=== PATIENT | female | born 1935 | race Caucasian/White ===

== ENCOUNTER 2016-12-22 12:09 | Outpatient (CLI) | payer MEDICARE, OTHER | END 2016-12-22 12:10 | disposition home or self-care (01) | DX: R92.1 Mammographic calcification found on diagnostic imaging of breast (principal) ==

== ENCOUNTER 2017-06-20 10:18 | Outpatient (CLI) | payer MEDICARE, OTHER ==
--- NOTE | 2017-06-20 12:46 | Mammography Report ---
DIGITAL DIAGNOSTIC BILATERAL MAMMOGRAM: 06/20/2017 CLINICAL INDICATION: Followup right calcifications. TECHNIQUE: Bilateral CC and MLO views, right true lateral and spot magnification views. COMPARISON: 12/22/2016, 06/24/2016, 12/23/2015, 06/12/2015, 05/29/2015, 06/18/2014, 05/07/2013, 03/26, 12/07/2010, 12/07/2009. FINDINGS: The breasts again demonstrate scattered fibroglandular densities bilaterally. Coarse, typ ically benign calcifications are again noted. No developing pleomorphism is seen. No suspicious mas s or region of architectural distortion is identified. IMPRESSION: BENIGN FINDINGS. RECOMMENDATION: The patient can return to routine annual screening unless otherwise clinically indic ated. BI-RADS category 2, benign findings. STANDARD QUALIFYING STATEMENTS 1. This examination was reviewed with the aid of Computer-Aided Detection (CAD). 2. A negative or benign imaging report should not delay biopsy if clinically suspicious findings are present. Consider surgical consultation if warranted. More than 5% of cancers are not identified by i maging. 3. Dense breasts may obscure an underlying neoplasm. JOB #: [id number] EXT JOB #:[id number]
== END 2017-06-20 10:19 | disposition home or self-care (01) ==
LOC: DI 10:18
PROVIDERS: ATTEND Internal Medicine
DX: R92.1 Mammographic calcification found on diagnostic imaging of breast (principal)
CPT/HCPCS: 77066

== ENCOUNTER 2018-07-17 13:23 | Outpatient (CLI) | payer MEDICARE, OTHER ==
--- NOTE | 2018-07-18 11:25 | Mammography Report ---
Reason: BILAT DIAG. w PERFECTO RT BREAST PAIN Procedure Date: 07/17/2018 Accession Number: [id number] / [id number] Procedure: JAMARI - Diagnostic Bilat 3D Perfecto CPT Code: 14993 FULL RESULT: EXAM: Diagnostic Bilat 3D Perfecto DATE: 07/17/2018 2:32 PM CLINICAL HISTORY: Right breast pain inferiorly. TECHNIQUE: Bilateral CC and MLO views were obtained. COMPARISON: 06/20/2017, 12/22/2016, 06/24/2016, 12/23/2015, 06/13/2015, 06/12/2015, 05/29/2015, 06/18/2014 and 05/07/2013 FINDINGS: There are scattered fibroglandular densities. There is been no significant interval change. Innumerable bilateral calcifications are grossly stable as are several bilateral nodular densities. No new suspicious masses, clustered microcalcifications, or regions of architectural distortion are identified. IMPRESSION: Benign findings RECOMMENDATION: Routine annual screening unless otherwise clinically indicated. BIRADS CATEGORY 2: Benign findings STANDARD QUALIFYING STATEMENTS: 1. This examination was not reviewed with the aid of Computer-Aided Detection (CAD). 2. A negative or benign imaging report should not delay biopsy if clinically suspicious findings are present. Consider surgical consultation if warrented. More than 5% of cancers are not identified by imaging. 3. Dense breasts may obscure an underlying neoplasm. 4. This examination was reviewed with the aid of 3D breast imaging (tomosynthesis).
--- NOTE | 2018-07-18 11:37 | Mammography Report ---
Reason: RT BREAST PAIN Procedure Date: 07/17/2018 Accession Number: [id number] / [id number] Procedure: JAMARI - Diagnostic Bilat 3D Von CPT Code: 24299 FULL RESULT: EXAM: Diagnostic Bilat 3D Von DATE: 07/17/2018 2:32 PM CLINICAL HISTORY: Right breast pain inferiorly. TECHNIQUE: Bilateral CC and MLO views were obtained. COMPARISON: 06/20/2017, 12/22/2016, 06/24/2016, 12/23/2015, 06/13/2015, 06/12/2015, 05/29/2015, 06/18/2014 and 05/07/2013. FINDINGS: There are scattered fibroglandular densities. There has been no significant interval change. Innumerable bilateral calcifications are grossly stable as are several bilateral nodular densities. No new suspicious masses, clustered microcalcifications, or regions of architectural distortion are identified. IMPRESSION: Benign findings RECOMMENDATION: Routine annual screening unless otherwise clinically indicated. BIRADS CATEGORY 2: Benign findings STANDARD QUALIFYING STATEMENTS: 1. This examination was not reviewed with the aid of Computer-Aided Detection(CAD). 2. A negative or benign imaging report should not delay biopsy if clinicaly suspicious findings are present. Consider surgical consultation if warrented. More than 5% of cancers are not identified by imaging. 3. Dense breasts may obscure an underlying neoplasm. 4. This examination was reviewed with the aid of 3D breast imaging (tomosynthesis).
== END 2018-07-17 13:24 | disposition home or self-care (01) ==
LOC: DI 13:23
PROVIDERS: ATTEND Internal Medicine
DX: N64.4 Mastodynia (principal)
CPT/HCPCS: 77062; 77066

== ENCOUNTER 2020-02-15 19:46 | Emergency (ER) | payer MEDICARE, OTHER ==
[2020-02-15] MEDS ORDERED: MORPHINE 2 MG/ML CARPUJECT IVP STA (20:16)
[2020-02-15] MEDS ORDERED: ONDANSETRON 4 MG/2 ML VIAL IVP STA (20:16)
--- NOTE | 2020-02-15 20:18 | ED Physician Documentation ---
PD HPI ABD PAIN - Stated complaint Stated Complaint: VOMITING - Chief complaint Chief Complaint: Abd Pain - History obtained from History obtained from: Patient, Family - History of Present Illness Timing - onset: Last night (84-year-old woman with history of TIA on Plavix, type 2 diabetes on oral medications. Remote history of oophorectomy and appendectomy. She has had abdominal pain since last night with bloating and vomiting since early this morning. Potentially a fever although she vacillates on that. She never had anything like this before. 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 - Present Medications Home Medications: Ambulatory Orders Medication Instructions Recorded Confirmed Atorvastatin [Lovastatin] 20 mg PO HS 01/11/14 02/15/20 Clopidogrel [Plavix] 75 mg PO DAILY 01/11/14 02/15/20 Levothyroxine [Synthroid] 50 mcg PO QDAC 01/11/14 02/15/20 Metformin HCl 100 mg PO TID 01/11/14 02/15/20 Metoprolol Succinate [Toprol Xl] 100 mg PO BID 01/11/14 02/15/20 Potassium Chloride [Micro-K] 10 meq PO BIDWM 01/11/14 02/15/20 amLODIPine [Norvasc] 5 mg PO DAILY 01/11/14 02/15/20 hydroCHLOROthiazide [Hydrodiuril] 25 mg PO DAILY 01/11/14 02/15/20 lisinopriL [Zestril] 40 mg PO BID 01/11/14 02/15/20 Ascorbic Acid [Vitamin C] 500 mg PO BID 02/15/20 02/15/20 Aspirin 81 mg PO QDBREAKFAST 02/15/20 02/15/20 Famotidine 20 mg PO QDAC 02/15/20 02/15/20 Glipizide [Glipizide Xl] 2.5 mg PO QDAC 02/15/20 02/15/20 Multivit-Min/FA/Lycopen/Lutein 1 each PO QDAC 02/15/20 02/15/20 [Centrum Silver Men Tablet] - Allergies Allergies/Adverse Reactions: Allergies Allergy/AdvReac Type Severity Reaction Status Date / Time No Known Drug Allergies Allergy Verified 02/15/20 20:01 - Social History Does the pt smoke?: No Smoking Status: Never smoker Does the pt drink ETOH?: No Does the pt have substance abuse?: No - Immunizations Immunizations are current?: Yes - POLST Patient has POLST: No PD ED PE NORMAL - Vitals Vital signs reviewed: Yes - General General: Alert and oriented X 3, Other (She is tachycardic, slightly tachypneic as well. She appears uncomfortable.) - HEENT HEENT: PERRL, EOMI - Neck Neck: Supple, no meningeal sign, No bony TTP - Cardiac Cardiac: Other (Tachycardic and slightly irregular) - Respiratory Respiratory: No respiratory distress, Clear bilaterally - Abdomen Abdomen: Other (Soft but distended with absent bowel tones, mild diffuse tenderness. No surgical signs.) - Back Back: No CVA TTP, No spinal TTP - Derm Derm: Normal color, Warm and dry - Extremities Extremities: No edema, No calf tenderness / cord - Neuro Neuro: Alert and oriented X 3, Normal speech Results - Vitals Vitals: Vital Signs - 24 hr 02/15/20 02/15/20 02/15/20 19:55 21:53 22:45 Temperature 37.0 C Heart Rate 121 H 92 77 Respiratory 22 20 22 Rate Blood Pressure 131/65 H 125/67 100/53 L O2 Saturation 95 92 97 Oxygen O2 Source Nasal cannula - EKG (time done) 2020 Rate: Rate (enter#) (116) Rhythm: Atrial fibrillation Ischemia: Q waves (anterior). No: ST elevation c/w ischemia Computer interpretation: Agree with computer - Labs Labs: Laboratory Tests 02/15/20 02/15/20 02/15/20 20:20 20:20 20:20 WBC 15.9 H RBC 4.43 Hgb 14.2 Hct 41.0 MCV 92.6 MCH 32.1 H MCHC 34.6 RDW 13.6 Plt Count 145 MPV 12.1 H Neut # (Auto) 14.7 H Lymph # (Auto) 0.3 L Barron # (Auto) 0.4 Eos # (Auto) 0.3 Baso # (Auto) 0.1 Absolute Nucleated RBC 0.00 Nucleated RBC % 0.0 PT 14.4 H INR 1.3 H Sodium 132 L Potassium 2.4 L* Chloride 95 L Carbon Dioxide 19 L Anion Gap 18.0 H BUN 20 Creatinine 1.1 H Estimated GFR (MDRD) 47 L Glucose 263 H Calcium 9.4 Magnesium Total Bilirubin 5.5 H AST 655 H ALT 532 H Alkaline Phosphatase 108 Total Protein 7.4 Albumin 3.8 Globulin 3.6 Albumin/Globulin Ratio 1.1 Lipase 27 02/15/20 20:20 WBC RBC Hgb Hct MCV MCH MCHC RDW Plt Count MPV Neut # (Auto) Lymph # (Auto) Barron # (Auto) Eos # (Auto) Baso # (Auto) Absolute Nucleated RBC Nucleated RBC % PT INR Sodium Potassium Chloride Carbon Dioxide Anion Gap BUN Creatinine Estimated GFR (MDRD) Glucose Calcium Magnesium 1.2 L Total Bilirubin AST ALT Alkaline Phosphatase Total Protein Albumin Globulin Albumin/Globulin Ratio Lipase - Rads (name of study) CT A/P Radiology: EMP read contemporaneously (1. Pericholecystic fat stranding and fluid, suspicious for cholecystitis although no calcified stones are seen. Recommend further evaluation with right upper quadrant ultrasound. 2. Mildly dilated CBD, not unusual at this patient's age. Consider correlation with laboratory values to assess for evidence of obstruction, and further evaluation with MRCP if indicated. 3. Trace bilateral pleural effusions. ) PD MEDICAL DECISION MAKING - ED course ED course: 84-year-old woman presents with abdominal pain and vomiting. I thought she would have a small bowel obstruction but CT showing more of a cholecystitis type picture with potential obstruction. Modestly elevated liver enzymes and bilirubin. No elevation in alkaline phosphatase though which is a little odd. Case discussed by phone with the on-call surgeon, Dr. Sumaya Olivas who will follow along if the patient stays here in did not necessarily see the need for urgent referral to a facility capable of ERCP or MRCP. Case discussed with the family and they would prefer to stay here. Subsequently talked with the hospitalist here, Dr. Kimball who felt very uncomfortable admitting the patient and, subsequently I spoke with the family and they were willing to go to [place]. I talked to the GI on-call in [place], Dr. Craig at approximately 10:45 PMHe will see in consult. Defer to the hospitalist for admission. Accepted by Dr. Jose Ramon Mulligan, hospitalist in [place] at 10:58 PM. Cobras were completed. She is stable for transport. Departure - Departure Disposition: 02 Transfer Acute Care Hosp Clinical Impression: Cholecystitis, Atrial fibrillation, Hypokalemia, Hypomagnesemia Vomiting Qualifiers: Vomiting type: bilious vomiting Nausea presence: with nausea Qualified Code(s): R11.14 - Bilious vomiting Condition: Serious
[2020-02-15 20:27] LABS: BASOPHILS # (AUTO) 0.1 10^3/uL (0.0-0.1); BASOPHILS % (AUTO) 0.3 %; EOSINOPHILS # (AUTO) 0.3 10^3/uL (0.0-0.7); EOSINOPHILS % (AUTO) 1.6 %; HGB - HEMOGLOBIN 14.2 g/dL (12.0-16.0); LYMPHOCYTES # (AUTO) 0.3 10^3/uL (1.5-3.5); LYMPHOCYTES % (AUTO) 2.1 %; MEAN CORPUSCULAR HEMOGLOBIN 32.1 pg (27.0-31.0); MEAN CORPUSCULAR HGB CONC 34.6 g/dL (32.0-36.0); MEAN CORPUSCULAR VOLUME 92.6 fL (81.0-99.0); MEAN PLATELET VOLUME 12.1 fL (7.9-10.8); MONOCYTES # (AUTO) 0.4 10^3/uL (0.0-1.0); MONOCYTES % (AUTO) 2.7 %; NEUTROPHILS # (AUTO) 14.7 10^3/uL (1.5-6.6); NEUTROPHILS % (AUTO) 92.6 %; PLT - PLATELET COUNT 145 10^3/uL (130-450); RED BLOOD COUNT 4.43 10^6/uL (4.20-5.40); RED CELL DISTRIBUTION WIDTH 13.6 % (12.0-15.0); WHITE BLOOD COUNT 15.9 x10^3/uL (4.8-10.8)
[2020-02-15 20:29] LABS: INR 1.3 (0.8-1.2); PT - PROTHROMBIN TIME 14.4 secs (9.9-12.6)
[2020-02-15 20:44] LABS: ALBUMIN 3.8 g/dL (3.2-5.5); ALBUMIN/GLOBULIN RATIO 1.1 (1.0-2.2); BILIRUBIN,TOTAL 5.5 mg/dL (0.2-1.0); CALCIUM 9.4 mg/dL (8.5-10.3); CREATININE 1.1 mg/dL (0.4-1.0); TOTAL PROTEIN 7.4 g/dL (6.7-8.2)
[2020-02-15] MEDS ORDERED: IOVERSOL 320 100 ML VIAL IVP ONE ×2 (20:48→21:14)
[2020-02-15] MEDS ORDERED: POTASSIUM CHLOR 10 MEQ/100 ML 10 MEQ/100 ML BAG IV ONE ×2 (20:53→20:54)
[2020-02-15] MEDS ORDERED: HYDROmorphone 1 MG/ML CARPUJECT IVP STA (20:54)
[2020-02-15] MEDS ORDERED: MAGNESIUM SULFATE 2 GRAM 2 GM/50 ML BAG IV ONE (21:14)
[2020-02-15] MEDS ORDERED: SODIUM CHLORIDE 0.9% 1,000 ML IV STA ×2 (21:36→23:54)
--- NOTE | 2020-02-15 21:43 | CT Report ---
Reason: abd pain, suspect sbo, IV only Procedure Date: 02/15/2020 Accession Number: [id number] / [id number] Procedure: CT - Abdomen/Pelvis W CPT Code: Final Report FULL RESULT: EXAM: CT ABDOMEN AND PELVIS EXAM DATE: 02/15/2020 08:59 PM. CLINICAL HISTORY: Lower abdominal pain and nausea/vomiting. Suspect small bowel obstruction. COMPARISONS: ABDOMEN/PELVIS W/O 02/08/2014 9:07 AM. TECHNIQUE: Routine helical CT imaging was performed through the abdomen and pelvis. IV contrast: 80 ML OPTI 320 AT 2 ML/SEC WITH 70 SEC DELAY. . Enteric contrast: No. Reconstructions: Coronal and sagittal. In accordance with CT protocol optimization, one or more of the following dose reduction techniques were utilized for this exam: automated exposure control, adjustment of mA and/or KV based on patient size, or use of iterative reconstructive technique. FINDINGS: Lung Bases: Trace bilateral pleural effusions. Liver: Enlarged with the right hepatic lobe measuring proximally 21 cm in length. No focal hepatic lesion. Gallbladder/Bile Ducts: The gallbladder is distended with no visualized stones. Pericholecystic fat stranding and small volume fluid. Mildly dilated CBD measuring 8 mm (upper limits of normal 6 mm, previously 6 mm on 02/08/2014). Spleen: Normal. Pancreas: Normal. Adrenal Glands: Normal. Kidneys and Ureters: An 11 mm circumscribed hypoattenuating focus in the lateral left interpolar cortex likely represents a cyst (3/32); no imaging follow-up is recommended per consensus recommendations based on imaging criteria. No stones, hydronephrosis, or hydroureter. Peritoneal Cavity/Bowel: Small volume free fluid adjacent to the gallbladder and inferior tip of the right hepatic lobe, in the right paracolic gutter, and in the pelvis. No evidence for bowel obstruction or acute inflammatory process. The appendix is not seen. No pneumoperitoneum or adenopathy. Pelvic Organs: Multiple uterine myomata, the largest approximately 2.7 x 2.1 x 2.6 cm at the right fundus (3/67, 5/38). The bladder and ovaries are within normal limits. Vasculature: Moderate atherosclerotic calcifications within the aorta and iliac arteries. Bones: Multilevel degenerative disk disease, most pronounced in moderate to severe at L4-L5. No acute bony abnormality. Other: None. IMPRESSION: 1. Pericholecystic fat stranding and fluid, suspicious for cholecystitis although no calcified stones are seen. Recommend further evaluation with right upper quadrant ultrasound. 2. Mildly dilated CBD, not unusual at this patient's age. Consider correlation with laboratory values to assess for evidence of obstruction, and further evaluation with MRCP if indicated. 3. Trace bilateral pleural effusions. RADIA
[2020-02-15] MEDS ORDERED: PIPERACILLIN/TAZOBACTAM 3.375 GM in SODIUM CHLORIDE 0.9% MINIBAG 100 ML IV STA (22:00)
[2020-02-15] MEDS ORDERED: metroNIDAZOLE 500 MG/100 ML 500 MG/100 ML BAG IV ONE (22:00)
[2020-02-16 01:08] VITALS: BP 97/64
== END 2020-02-16 01:08 | disposition short-term general hospital (02) ==
LOC: ED 19:46
DX: K81.9 Cholecystitis, unspecified (principal); R11.14 Bilious vomiting; I48.91 Unspecified atrial fibrillation; E87.6 Hypokalemia; E83.42 Hypomagnesemia; E11.9 Type 2 diabetes mellitus without complications; Z79.84 Long term (current) use of oral hypoglycemic drugs; I10 Essential (primary) hypertension; Z86.73 Personal history of transient ischemic attack (TIA), and cerebral infarction without residual deficits; Z79.02 Long term (current) use of antithrombotics/antiplatelets; Z79.82 Long term (current) use of aspirin; Z90.49 Acquired absence of other specified parts of digestive tract
CPT/HCPCS: 36415; 74177; 80053; 83690; 83735; 85025; 85610; 93005; 96365; 96366; 96368; 96375; 99285; J1170; Q9967

== ENCOUNTER 2020-02-16 01:19 | Outpatient (CLI) | payer MEDICARE, OTHER | END 2020-02-16 01:20 | disposition short-term general hospital (02) | LOC: EMS 01:19 | PROVIDERS: ATTEND Surgery | DX: K81.9 Cholecystitis, unspecified (principal) | CPT/HCPCS: A0425; A0426 ==

== ENCOUNTER 2020-03-08 11:26 | Outpatient (CLI) | payer MEDICARE, OTHER | END 2020-03-08 11:27 | disposition critical access hospital (66) | LOC: EMS 11:26 | PROVIDERS: ATTEND Surgery | DX: R53.1 Weakness (principal); R29.810 Facial weakness; R47.9 Unspecified speech disturbances | CPT/HCPCS: A0425; A0429 ==

== ENCOUNTER 2020-03-08 11:34 | Inpatient (IN) | payer MEDICARE, OTHER ==
[2020-03-08] MEDS ORDERED: SODIUM CHLORIDE 0.9% 1,000 ML IV STA (11:37)
--- NOTE | 2020-03-08 12:04 | CT Report ---
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 For radiation dose reduction, the following was used: automated exposure control, adjustment of mA and/or kV according to patient size. COMPARISON: FINDINGS: Image quality: Excellent. CSF spaces: Basal cisterns are patent. No extra-axial fluid collections. Ventricles are normal in size and shape. Brain: No midline shift. No intracranial masses or hemorrhage. [place]-white matter interface is norm al. Skull and face: Calvarium and visualized facial bones are intact, without suspicious lesions. Sinuses: Visualized sinuses and mastoids are clear. IMPRESSION: No acute process. This study fulfills neurological imaging criteria for inclusion or exclusion of acute stroke therapie s based on available published neurological imaging guidelines. Reviewed by: Cleopatra Johansen MD on 03/08/2020 12:03 PM PDT Approved by: Cleopatra Johansen MD on 03/08/2020 12:03 PM PDT Station ID: [id number]
[2020-03-08] MEDS ORDERED: IOVERSOL 320 100 ML VIAL IVP ONE (12:08)
[2020-03-08 12:12] LABS: BASOPHILS % (AUTO) 0.6 %; EOSINOPHILS % (AUTO) 0.8 %; HGB - HEMOGLOBIN 8.5 g/dL (12.0-16.0); LYMPHOCYTES # (AUTO) 0.8 10^3/uL (1.5-3.5); LYMPHOCYTES % (AUTO) 15.8 %; MEAN CORPUSCULAR HEMOGLOBIN 29.7 pg (27.0-31.0); MEAN CORPUSCULAR HGB CONC 30.7 g/dL (32.0-36.0); MEAN CORPUSCULAR VOLUME 96.9 fL (81.0-99.0); MEAN PLATELET VOLUME 10.3 fL (7.9-10.8); MONOCYTES # (AUTO) 0.7 10^3/uL (0.0-1.0); NEUTROPHILS # (AUTO) 3.6 10^3/uL (1.5-6.6); NEUTROPHILS % (AUTO) 68.2 %; PLT - PLATELET COUNT 271 10^3/uL (130-450); RED BLOOD COUNT 2.86 10^6/uL (4.20-5.40); RED CELL DISTRIBUTION WIDTH 17.6 % (12.0-15.0); WHITE BLOOD COUNT 5.3 x10^3/uL (4.8-10.8)
[2020-03-08 12:18] LABS: INR 1.3 (0.8-1.2); PT - PROTHROMBIN TIME 14.4 secs (9.9-12.6)
[2020-03-08 12:26] LABS: ALBUMIN 2.9 g/dL (3.2-5.5); ALBUMIN/GLOBULIN RATIO 1.1 (1.0-2.2); BILIRUBIN,TOTAL 1.4 mg/dL (0.2-1.0); CALCIUM 9.5 mg/dL (8.5-10.3); CREATININE 0.8 mg/dL (0.4-1.0); MAGNESIUM 1.5 mg/dL (1.7-2.8); PARTIAL THROMBOPLASTIN TIME 33.1 secs (24.9-33.3); TOTAL PROTEIN 5.5 g/dL (6.7-8.2)
--- NOTE | 2020-03-08 12:28 | CT Report ---
PROCEDURE: ANGIO HEAD W/WO INDICATIONS: right weakness, abrupt onset CONTRAST: IV CONTRAST: Optiray 320 ml: 100 PO CONTRAST: *NO PO CONTRAST TECHNIQUE: Precontrast 4.5 mm thick angled axial sections acquired from the foramen magnum to the vertex. Afte r the administration of intravenous contrast, 1 mm thick sections acquired through the [place] is. Postcontrast 4.5 mm thick sections then re-acquired from the foramen magnum to the vertex. 3-di mensional nmjefub-brcjlbphu-ymfeaudbop (MIP) and/or volume rendering reformats were acquired of the c entral intracranial vasculature. For radiation dose reduction, the following was used: automated ex posure control, adjustment of mA and/or kV according to patient size. COMPARISON: CT angiography of the neck dated FINDINGS: Image quality: Excellent. Anterior circulation: Right internal carotid artery is normal in appearance. Left internal carotid ar yanira is occluded. The flow within the paired anterior cerebral arteries is normal and symmetric. Righ t middle cerebral artery is within normal limits. Left middle cerebral artery is occluded just distal to its origin. The anterior communicating artery is seen. No aneurysms are seen. Posterior circulation: Visualized portions of the vertebral arteries demonstrate normal caliber, and join to form a normal appearing basilar artery. Flow within the posterior cerebral arteries is norm al and symmetric. No aneurysms are seen. CSF spaces: Ventricles are normal in size and shape. Basal cisterns are patent. No extra-axial flu id collections. Brain: No midline shift. No intracranial bleeds or masses. Valencia-white matter interface appears int act. Skull and face: Calvarium and facial bones appear intact, without suspicious lesions. Sinuses: Visualized sinuses and mastoids are clear. IMPRESSION: 1. 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 3. Findings discussed with Dr. Jose Ramon Garcia on 03.08.20 at 1226 hours. Reviewed by: Cleopatra Johansen MD on 03/08/2020 12:26 PM PDT Approved by: Cleopatra Johansen MD on 03/08/2020 12:26 PM PDT Station ID: [id number]
--- NOTE | 2020-03-08 12:32 | CT Report ---
PROCEDURE: ANGIO NECK W INDICATIONS: right weakness, abrupt onset CONTRAST: IV CONTRAST: Optiray 320 ml: 100 PO CONTRAST: *NO PO CONTRAST TECHNIQUE: After the administration of intravenous contrast, 1.5 mm axial sections acquired from the aortic arch to the [place] of [place]. Coronal 3-D maximum intensity projection (MIP) and/or volume rendering ref ormats were then performed. For radiation dose reduction, the following was used: automated exposur e control, adjustment of mA and/or kV according to patient size. COMPARISON: None. FINDINGS: Image quality: Excellent. Carotid system: The great vessels demonstrate a conventional anatomy as they arise from the aortic [facility]. The origins of the common carotid arteries appear patent. The common carotid arteries demonstr ate normal calibers and courses. Right internal carotid artery is patent. Left internal carotid arter y is patent within its midportion and proximally, but occludes distally. Posterior circulation: The origins of the vertebral arteries appear patent. The more superior porti ons of the vertebral arteries demonstrate normal course and caliber. They join to form a normal appe aring basilar artery. Soft tissues: Visualized neck soft tissues demonstrate no suspicious abnormalities. The thyroid gla nd is normal in size. Bones: No suspicious bony lesions. Visualized cervical spine appears normally aligned. IMPRESSION: 1. Occluded distal left internal carotid artery. 2. Findings were discussed with Dr. Jose Ramon Garcia's nurse, [place], on 03.08.20 at 1228 hours. The estimate of stenosis included in the report of the imaging study was calculated using the NASCET method Reviewed by: Cleopatra Johansen MD on 03/08/2020 12:31 PM PDT Approved by: Cleopatra Johansen MD on 03/08/2020 12:31 PM PDT Station ID: [id number]
[2020-03-08] MEDS ORDERED: WATER FOR INJECTION STERILE IV STA ×2 (12:43→12:51)
[2020-03-08] MEDS ORDERED: ALTEPLASE IV STA ×2 (12:43→12:51)
[2020-03-08] MEDS ORDERED: ALTEPLASE 100 MG VIAL IV STA (12:50)
--- NOTE | 2020-03-08 13:40 | ED Physician Documentation ---
PD HPI FOCAL NEURO - Stated complaint Stated Complaint: CODE STROKE - Chief complaint Chief Complaint: Neuro - History obtained from History obtained from: Patient, Family - History of Present Illness Timing - onset: How many minutes ago (45) Timing - duration: Minutes (45) Timing - details: Abrupt onset (The patient's and daughter state that ericka johnson was sitting at the table eating with them and had an abrupt onset of difficulty speaking mumbling speech inattention and right-sided weakness of the face arm and leg. She is not have any fainting. EMS was called and she was promptly brought here. She was able to answer minimally with slight yes and no and denied any pains.), Still present Severity of deficit: Severe Weakness: Face, Arm, Leg, Right Numbness: Face, Arm, Leg, Right Associated symptoms: No: Headache, Nausea / vomiting, Fall, Head injury, Chest pain Contributing factors: positive: Atrial fibrillation (recent in the past month, and is on Plavix.). negative: Anticoagulated Baseline status: positive: A&OX3, ambulatory, indep, Walker Similar symptoms before: Has not had sx before Recently seen: Admitted, Surgery (2 1/2 - 3 weeks ago for gallbladder surgery in [place] with repeat scope for fluid accumulation. Discharged just a week ago. Dx with atrial fib during that admission. On plavix.) Review of Systems Unable to obtain: AMS (significant aphasia), Other (info from family (daughter in ER and by phone)) Constitutional: denies: Fever Cardiac: denies: Chest pain / pressure Respiratory: denies: Dyspnea, Cough GI: denies: Vomiting, Diarrhea Skin: denies: Abrasion (s), Laceration (s) Neurologic: reports: Generalized weakness. denies: Headache, Head injury Endocrine: reports: Easy bruising / bleeding. 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 - Present Medications Home Medications: Ambulatory Orders Medication Instructions Recorded Confirmed Atorvastatin [Lovastatin] 20 mg PO HS 01/11/14 03/08/20 Clopidogrel [Plavix] 75 mg PO DAILY 01/11/14 03/08/20 Levothyroxine [Synthroid] 50 mcg PO QDAC 01/11/14 03/08/20 Metformin HCl 500 mg PO TID 01/11/14 03/08/20 Potassium Chloride [Micro-K] 10 meq PO BIDWM 01/11/14 03/08/20 amLODIPine [Norvasc] 5 mg PO DAILY 01/11/14 03/08/20 hydroCHLOROthiazide [Hydrodiuril] 25 mg PO DAILY 01/11/14 03/08/20 lisinopriL [Zestril] 40 mg PO BID 01/11/14 03/08/20 Ascorbic Acid [Vitamin C] 500 mg PO BID 02/15/20 03/08/20 Aspirin 81 mg PO QDBREAKFAST 02/15/20 03/08/20 Famotidine 20 mg PO QDAC 02/15/20 03/08/20 Glipizide [Glipizide Xl] 2.5 mg PO QDAC 02/15/20 03/08/20 Multivit-Min/FA/Lycopen/Lutein 1 each PO QDAC 02/15/20 03/08/20 [Centrum Silver Men Tablet] Metoprolol Tartrate 100 mg PO BID 03/08/20 03/08/20 - Allergies Allergies/Adverse Reactions: Allergies Allergy/AdvReac Type Severity Reaction Status Date / Time No Known Drug Allergies Allergy Verified 03/08/20 12:10 - Social History Does the pt smoke?: No Smoking Status: Never smoker Does the pt drink ETOH?: No Does the pt have substance abuse?: No - Immunizations Immunizations are current?: Yes - POLST Patient has POLST: No PD ED PE NORMAL - Vitals Vital signs reviewed: Yes - General General: No acute distress, Well developed/nourished - HEENT HEENT: Atraumatic, Pharynx benign, Other (positive gag reflex) - Neck Neck: Supple, no meningeal sign - Cardiac Cardiac: RRR, No murmur - Respiratory Respiratory: No respiratory distress, Clear bilaterally - Abdomen Abdomen: Soft, Non tender, Other (healing scopic scars on abd without signs of infection) - Back Back: No CVA TTP - Derm Derm: Normal color, Warm and dry - Extremities Extremities: No tenderness to palpate, Normal ROM s pain, No edema, No calf tenderness / cord NIHSS - Level of Consciousness Level of consciousness: (1) Not alert, but arousable by minor stimulation to obey, or answer LOC Questions: (2) Answers neither correct LOC Commands: (1) Performs one correctly - Gaze Best Gaze: (1) Partial gaze palsy (to the left) - Visual Visual: (0) No loss - Facial Palsy Facial Palsy: (2) Partial paralysis - Motor Arms (both separate) Motor Arm (right): (3) No effort against gravity Motor Arm (left): (0) No drift - Motor Legs (both separate) Motor Leg (right): (2) Some effort against gravity Motor Leg (left): (0) No drift - Limb Ataxia Limb Ataxia: (0) Absent - Sensory Sensory: (1) Cyur-wa-mddsjtcl loss - Best Language Best Language: (2) Severe aphasia - Dysarthria Dysarthria: (1) Squa-lp-[id number] dysarthria - Extinction and Inattention (formally neg Extinction and inattention: (1) Visual,tactile,auditory,spatial, or personal inattention - Total Score/Results Total Score/Result: 17 Results - Vitals Vitals: Vital Signs - 24 hr 03/08/20 03/08/20 03/08/20 12:01 12:11 12:50 Temperature 36.5 C Heart Rate 82 72 78 Respiratory 20 19 22 Rate Blood Pressure 154/72 H 154/72 H 159/78 H O2 Saturation 95 95 96 03/08/20 03/08/20 03/08/20 13:00 13:09 13:56 Temperature Heart Rate 72 79 80 Respiratory 20 22 22 Rate Blood Pressure 155/84 H 146/79 H O2 Saturation 96 95 95 Oxygen O2 Source Room air - EKG (time done) 12:03 Rate: Rate (enter#) (78) Rhythm: Atrial fibrillation [place]: Normal QRS: Low voltage Ischemia: Normal ST segments. No: ST elevation c/w ischemia, ST depression Compare to prior EKG: Old EKG unavailable - Labs Labs: Laboratory Tests 03/08/20 03/08/20 03/08/20 12:00 12:00 12:00 WBC 5.3 RBC 2.86 L Hgb 8.5 L Hct 27.7 L MCV 96.9 MCH 29.7 MCHC 30.7 L RDW 17.6 H Plt Count 271 MPV 10.3 Neut # (Auto) 3.6 Lymph # (Auto) 0.8 L Cook # (Auto) 0.7 Eos # (Auto) 0.0 Baso # (Auto) 0.0 Absolute Nucleated RBC 0.00 Nucleated RBC % 0.0 ESR PT 14.4 H INR 1.3 H APTT 33.1 Sodium 133 L Potassium 3.8 Chloride 99 L Carbon Dioxide 23 Anion Gap 11.0 BUN 10 Creatinine 0.8 Estimated GFR (MDRD) 68 L Glucose 190 H Calcium 9.5 Magnesium 1.5 L Total Bilirubin 1.4 H AST 15 ALT 16 Alkaline Phosphatase 131 H Troponin I High Sens Total Protein 5.5 L Albumin 2.9 L Globulin 2.6 Albumin/Globulin Ratio 1.1 Lipase 37 03/08/20 03/08/20 12:00 12:00 WBC RBC Hgb Hct MCV MCH MCHC RDW Plt Count MPV Neut # (Auto) Lymph # (Auto) Cook # (Auto) Eos # (Auto) Baso # (Auto) Absolute Nucleated RBC Nucleated RBC % ESR 29 PT INR APTT Sodium Potassium Chloride Carbon Dioxide Anion Gap BUN Creatinine Estimated GFR (MDRD) Glucose Calcium Magnesium Total Bilirubin AST ALT Alkaline Phosphatase Troponin I High Sens 7.1 Total Protein Albumin Globulin Albumin/Globulin Ratio Lipase - Rads (name of study) head CT Radiology: Prelim report reviewed (no ICH nor acute process), See rad report head/neck angio Radiology: Prelim report reviewed, Discussed with rads (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 We were thinking of TPA but then subsequent information from the daughter about the recent surgery and her baseline function change the treatment algorithm. The family was updated on the neurologists recommendations of no TPA and not a candidate for endovascular treatment.), d/w retirement consultant (Discussed with the stroke neurology Dr. Harris at [facility] who states initially was wanted to give TPA but then as we get the information of the recent gallbladder surgery, said that would be contraindicated. He talked with the interventional list and also talked with the patient's daughter to establish comorbidities and baseline function and the neurologist that the patient is not a endovascular candidate.) Departure - Departure Disposition: ED Place in Observation Clinical Impression: Acute right-sided weakness, Aphasia Cerebrovascular accident (CVA) Qualifiers: CVA mechanism: occlusion Precerebral and cerebral artery: carotid artery Laterality of affected vessel: left Qualified Code(s): I63.232 - Cerebral infarction due to unspecified occlusion or stenosis of left carotid arteries Condition: Stable Record reviewed to determine appropriate education?: Yes Discharge Date/Time: 03/08/20 14:44
[2020-03-08] MEDS: ASPIRIN CHEW 81 MG TABLET PO STA ×2 (13:51→13:55)
[2020-03-08] MEDS ORDERED: ONDANSETRON 4 MG/2 ML VIAL IVP PRN (14:13)
[2020-03-08] MEDS ORDERED: ASPIRIN 300 MG SUPP PR STA (14:18)
[2020-03-08] MEDS ORDERED: MAGNESIUM SULFATE 1 GM/2 ML VIAL IVP STA (14:26)
[2020-03-08] MEDS ORDERED: ACETAMINOPHEN 1,000 MG/100 ML 100 ML IV PRN (14:27)
[2020-03-08] MEDS: D5NS W/20 MEQ KCL 1,000 ML IV SCH (15:27)
--- NOTE | 2020-03-08 15:31 | XRAY Report ---
PROCEDURE: Chest 1 View X-Ray INDICATIONS: CVA, Afib, HTN TECHNIQUE: One view of the chest was acquired. COMPARISON: 02/08/2014. Correlation is also made with overlapping portions of neck angiogram 0 FINDINGS: Surgical changes and devices: None. Lungs and pleura: Small bilateral pleural effusions are seen. Interstitial prominence is seen through out. No pneumothorax is seen. Mediastinum: Mediastinal contours appear normal. Heart size is moderately enlarged. Bones and chest wall: No suspicious bony lesions. Age-appropriate degenerative changes are seen. Overlying soft tissues appear unremarkable. IMPRESSION: Cardiomegaly, interstitial prominence, and pleural effusions. Please correlate with patient examinati on, history, and laboratory values for underlying congestive heart failure. Reviewed by: Nakul Mobley MD on 03/08/2020 2:29 PM AKDT Approved by: Nakul Mobley MD on 03/08/2020 2:29 PM [facility] Station ID: [id number]
[2020-03-08] MEDS ORDERED: MAGNESIUM SULFATE 1 GM in SODIUM CHLORIDE 0.9% 50 ML IV ONE (16:00)
[2020-03-08] MEDS: SODIUM CHLORIDE FLUSH 0.9% 10 ML SYRINGE IVP SCH (16:07)
--- NOTE | 2020-03-08 16:39 | PHARMACY PROGRESS NOTE ---
- Best Possible Medication History Admit Date and Time: 03/08/20 1413 Processed by: Pharmacy Medication History completed: Yes Secondary Source(s): Physician records, Pharmacy records, Insurance records As the person ultimately responsible for medication therapy, providers are able to order a medication from an existing home medication list in [facility] via the "Reconcile Routine" prior to Confirmation of that medication by clinical support associate. Such practice is discouraged except when the physician, in their clinical judgment, deems that a medical need exists for a medication without regard to previous use.
[2020-03-08] MEDS: INSULIN REGULAR HUMAN 300 UNIT/3 ML VIAL SUBQ SCH (17:31)
[2020-03-08] MEDS ORDERED: cefTRIAXone 1 GM in SODIUM CHLORIDE 0.9% MINIBAG 100 ML IV SCH (17:50)
--- NOTE | 2020-03-08 18:41 | HISTORY & PHYSICAL EXAMINATION ---
DATE OF SERVICE: 03/08/2020 Physician: Mimi Almaguer MD HISTORY OF PRESENT ILLNESS: This is an 84-year-old white female who has a history of hypertension, diabetes, mild dementia, recent 16-day admission at [facility] in [place] for sepsis and cholecystitis, had a cholecystectomy and post-op seroma with 2 more procedures needed. She was just discharged about a week ago and was finishing 14 day course of oral cefdinir and metronidazole. Uniregistry was ordered and came out to the house to get things started for her. This morning while the patient was eating, she suddenly developed aphasia and right-sided arm and leg weakness, facial droop and left gaze preference and was brought to the emergency room. She got to the emergency room within 2-3 hours of onset of symptoms, which had started at [facility] at 11:15 a.m., and the ER started a Code Stroke protocol with potential for tPA. Her head CT showed no bleed. Neurology at [facility], however, said she was not a candidate for tPA because of her history of surgery that was just 2-1/2 weeks ago. She had a CT angio which revealed that she had a distal internal carotid occlusion with a probable clot. It was also determined that she was not a candidate for endovascular intervention, after the daughter was able to speak directly to the Neurologist and gave more details about the patient. In the emergency room, she slowly started to move the right arm and right leg slightly and look around the room and not just gaze to the left. PAST MEDICAL HISTORY 1. Hypertension. 2. Diabetes. 3. Recent development of atrial fibrillation, for which she was put on Plavix not anticoagulation, because of the recent surgery (this is all according to the daughter, as I do not have the discharge summary from [facility] in [place]). 4. Recent sepsis with 16-day hospitalization at [facility], where she got cholecystectomy and then had postop seroma and needed repeat intervention twice. She has only been home for a week. REVIEW OF SYSTEMS: All the pertinent positives are listed in the HPI, the rest are negative. ALLERGIES: NONE. MEDICATIONS 1. Amlodipine 5 mg daily. 2. Vitamin C daily. 3. Aspirin 81 mg daily. 4. Lipitor 20 mg every night. 5. Multivitamin daily. 6. Vitamin D3 at 1000 units daily. 7. Vitamin D3 at 800 units every night. 8. Plavix 75 mg daily. 9. Pepcid 20 mg every evening. 10. Glipizide 2.5 mg every morning. 11. HCTZ 25 mg daily. 12. Levothyroxine 50 mcg daily. 13. Lisinopril 40 mg b.i.d. 14. Metformin 500 mg t.i.d. 15. Metoprolol succinate 100 mg b.i.d. 16. [place]-3 fish oil b.i.d. 17. Potassium chloride 10 mEq b.i.d. FAMILY HISTORY: No inherited diseases. SOCIAL HISTORY: The patient lives with her and her adult daughter. The patient is a nonsmoker, drinks no alcohol, and no drug use history. PHYSICAL EXAMINATION GENERAL: Elderly white female. She is moving her right arm and leg minimally, moving her left arm and leg freely. She is gazing to the left, but does follow with her eyes to midline. She answers to her name by smiling and having eye contact. She is not verbalizing. VITAL SIGNS: Blood pressure 140/80, heart rate 70-80 in irregular rhythm, afebrile, room air saturation 92%. HEENT: Reveals nonverbal status, left gaze preference, right facial droop. Oral mucosa is moist. NECK: No JVD in a supine position. No carotid bruits. CHEST: Clear anteriorly. HEART: Irregular. Distant heart sounds. No murmur. ABDOMEN: Soft, nontender. EXTREMITIES: 2+ edema to below the knees. No clubbing or cyanosis. NEUROLOGIC: Described above. LABORATORY DATA: Sodium 133, potassium 3.8, BUN 10, creatinine 0.8, glucose 190, magnesium 1.5, bilirubin 1.4. Lipase normal. Albumin 2.9. White blood count 5.3, hemoglobin 8.5 with a normal MCV, platelet count normal at 271. INR 1.3. IMAGING Chest x-ray: Possible mild interstitial fluid and small bilateral pleural effusions present. She had a CT head and neck CTA, and the results were that of no stroke seen, no hemorrhage, no midline shift, and an occluded distal left internal carotid artery. IMPRESSION/DIAGNOSES 1. Transient ischemic attack versus cerebrovascular accident. If she has resolution of her symptoms by 24 hours from the 11:15 a.m. loc, then this would be a TIA, otherwise, a stroke. 2. Atrial fibrillation. If this is of recent onset, it is very likely the cause of her stroke with an embolus to the carotid. She apparently could not get anticoagulants because of the recent surgery and was put on baby aspirin and Plavix. 3. Leg edema and interstitial pulmonary edema. The daughter herself tells me that the patient has third spacing because of getting peripheral IV fluids for as long as 2 weeks or more at the recent hospitalization. 4. Anemia. 5. History of diabetes. 6. History of hypertension. 7. Hypomagnesemia. PLAN: Place the patient in Observation status on telemetry. She would be made an Inpatient if the stroke findings are still present after 24 hours. Proceed to obtain an Echo with bubble study to rule out PFO and evaluate for intracardiac clot. Watch for atrial fibrillation rate control on telemetry. Obtain an MRI of the head, which is available in 2 days, not tomorrow. Continue with her Plavix when she is able to swallow and begin adult-dose aspirin now, getting it per rectum. Obtain speech therapy evaluation for swallowing. Diet will be n.p.o. for now, until it is safe to have her try swallowing. PT and OT will be ordered to start working with her tomorrow. She will need stroke rehabilitation undoubtedly, unless she has resolution by tomorrow. Her hypothyroid medicines will be given IV, as well as her blood pressure medicines. Begin peripheral IV with D5 and saline, and cover fingerstick glucose checks with sliding scale insulin. No oral diabetic agents currently to treat her diabetes, until she can swallow. Check an A1c. Check a lipid panel. Follow her electrolytes and magnesium. Correct the low magnesium with IV runners. Consider gentle diuresis because of the leg edema and pulmonary vascular congestion. Follow her CBC daily. Check iron stores, B12 and folate and replace if they are low. DEEP VENOUS THROMBOSIS PROPHYLAXIS: SCDs. CODE STATUS: FULL CODE, I confirmed this with the daughter at bedside, who said that her "mother has gone through so much already, we can't give up now." ATTESTATION: The patient is expected to be discharged or transferred to another facility within 96 hours: Yes. cc: Linnea Ramos MD TD: 03/08/2020 18:05 [facility]
[2020-03-08] MEDS: metroNIDAZOLE 500 MG/100 ML 500 MG/100 ML BAG IV SCH (19:18)
[2020-03-08] MEDS: FAMOTIDINE 20 MG/2 ML SYRINGE IVP SCH (20:08)
[2020-03-08] MEDS: SODIUM CHLORIDE FLUSH 0.9% 10 ML SYRINGE IVP PRN (20:08)
[2020-03-09] MEDS: INSULIN REGULAR HUMAN 300 UNIT/3 ML VIAL SUBQ SCH ×4 (01:18→19:40)
[2020-03-09] MEDS: SODIUM CHLORIDE FLUSH 0.9% 10 ML SYRINGE IVP SCH ×3 (01:19→10:13)
[2020-03-09] MEDS: metroNIDAZOLE 500 MG/100 ML 500 MG/100 ML BAG IV SCH ×3 (01:27→19:42)
[2020-03-09 05:29] LABS: BASOPHILS # (AUTO) 0.1 10^3/uL (0.0-0.1); BASOPHILS % (AUTO) 0.6 %; EOSINOPHILS % (AUTO) 0.1 %; HGB - HEMOGLOBIN 9.1 g/dL (12.0-16.0); LYMPHOCYTES # (AUTO) 0.7 10^3/uL (1.5-3.5); LYMPHOCYTES % (AUTO) 7.5 %; MEAN CORPUSCULAR HEMOGLOBIN 29.5 pg (27.0-31.0); MEAN CORPUSCULAR HGB CONC 30.7 g/dL (32.0-36.0); MEAN CORPUSCULAR VOLUME 96.1 fL (81.0-99.0); MEAN PLATELET VOLUME 10.6 fL (7.9-10.8); MONOCYTES # (AUTO) 0.8 10^3/uL (0.0-1.0); MONOCYTES % (AUTO) 9.4 %; NEUTROPHILS # (AUTO) 7.3 10^3/uL (1.5-6.6); NEUTROPHILS % (AUTO) 81.9 %; PLT - PLATELET COUNT 289 10^3/uL (130-450); RED BLOOD COUNT 3.08 10^6/uL (4.20-5.40); RED CELL DISTRIBUTION WIDTH 17.4 % (12.0-15.0); WHITE BLOOD COUNT 8.8 x10^3/uL (4.8-10.8)
[2020-03-09 05:42] LABS: HB2 TOTAL 9.1 g/dL; HEMOGLOBIN A1C 0.46 g/dL; HEMOGLOBIN A1C % 6.8 % (4.6-6.2)
[2020-03-09 05:49] LABS: % IRON SATURATION 2 % (20-50); BUN - BLOOD UREA NITROGEN 6 mg/dL (6-20); CARBON DIOXIDE - CO2 24 mmol/L (21-32); CHLORIDE 106 mmol/L (101-111); CHOL/HDL RATIO 1.9 (<4.4); CHOLESTEROL 88 mg/dL; CREATININE 0.7 mg/dL (0.4-1.0); GLUCOSE 197 mg/dL (70-100); HDL CHOLESTEROL 46 mg/dL; IRON 8 ug/dL (28-170); LDL CHOLESTEROL,CALCULATED 28 mg/dL; LDL/HDL RATIO 0.6 (<4.4); MAGNESIUM 1.6 mg/dL (1.7-2.8); PHOSPHORUS 2.5 mg/dL (2.5-4.6); SODIUM 137 mmol/L (135-145); TOTAL IRON BINDING CAPACITY 343 ug/dL (250-450); TRANSFERRIN 245 mg/dL (192-382); VLDL CHOLESTEROL 14 mg/dL
[2020-03-09 06:01] LABS: THYROID STIMULATING HORMONE 2.1 uIU/mL (0.34-5.60)
[2020-03-09] MEDS: D5NS W/20 MEQ KCL 1,000 ML IV SCH (06:38)
[2020-03-09] MEDS ORDERED: MAGNESIUM SULFATE 2 GRAM 2 GM/50 ML BAG IV ONE (10:56)
[2020-03-09] MEDS: ASPIRIN 300 MG SUPP PR SCH (11:22)
--- NOTE | 2020-03-09 11:26 | PROVIDER PROGRESS NOTE ---
Assessment/Plan - Problem List (1) Cerebrovascular accident (CVA) Qualifiers: CVA mechanism: occlusion Precerebral and cerebral artery: carotid artery Laterality of affected vessel: left Qualified Code(s): I63.232 - Cerebral infarction due to unspecified occlusion or stenosis of left carotid arteries Assessment/Plan: She has had slight improvement in right arm and right leg movement, but unsure if this is spontaneously. She also turned her head to the right, yesterday only had left gaze preference. She is much more somnolent today, however. Will proceed to put her in Inpatient status for continued stroke symptoms. Obtain a follow-up CT head, to evaluate the somnolence, for stroke extension or hemorrhage. Plan to obtain brain MRI tomorrow (we do not have MRI on Mondays) Continue with daily aspirin per rectum. Speech therapy bedside swallowing eval is urgently needed to assess if she can restart her pills and take a diet for nutrition and calories. Continue IV fluids until she is on a diet. Lipids were not elevated, she cannot yet swallow safely. The Echo is pending today to evaluate for cardiac source of embolus. Will order Physical Therapy and Occupational Therapy to start today. She will undoubtedly need a SNF for rehab. Continue NPO, until cleared by Speech Therapist bedside swallow eval. I spoke to the who was at her bedside and updated him on all the above. (2) Hypoxia Assessment/Plan: I suspect this is from hypoventilation due to her somnolence. Will obtain a chest x-ray. Start supplemental O2 to keep sats greater than 90%. (3) Carotid artery occlusion Qualifiers: Laterality: left Qualified Code(s): I65.22 - Occlusion and stenosis of left carotid artery Assessment/Plan: She was not offered endovascular management upon presentation in the ER because of her comorbidities. Continue aspirin per rectum until she can take p.o. We will then plan adult dose aspirin and Plavix daily. (4) Atrial fibrillation Assessment/Plan: Heart rate is controlled. Continue with IV management. No anticoagulation was being used because of her recent surgery and repeat surgery. Currently anticoagulation not started because of risk of hemorrhagic transformation of the stroke in the first several days. (5) Diabetes Assessment/Plan: She is getting D5 per IV. Her A!c returned at 6.8 indicating good control (at age 84). She is on sliding scale Insulin coverage in a patient who is n.p.o. (6) Hypomagnesemia Assessment/Plan: Replace with Mag iv riders Follow BMP and Mg daily. (7) Anemia Assessment/Plan: At admission yesterday her hemoglobin was low, presumably due to the recent hospitalization in [place] for sepsis and having several surgeries. Follow CBC daily (8) History of recent acute infection Assessment/Plan: She is getting about 5 more days of antibiotics for the sepsis that she had when hospitalized at [facility] in [place]. She is on IV forms of Flagyl and a cephalosporin, Ceftriaxone. (9) Hypokalemia Assessment/Plan: Resolved with replacement (10) Hyponatremia Assessment/Plan: Resolved since yesterday, with gentle iv saline hydration - Current Meds Current Meds: Current Medications Generic Name Dose Route Start Last Admin Trade Name Freq PRN Reason Stop Dose Admin Aspirin 300 mg 03/09/20 11:00 03/09/20 11:22 [place] 300 mg DAILY JEFFREY Administration Famotidine 20 mg 03/08/20 21:00 03/08/20 20:08 Pepcid IVP 20 mg QPM JEFFREY Administration Potassium Chloride/Dextrose/Sod Cl 1,000 mls @ 83.33 mls/hr 03/08/20 15:00 03/09/20 06:38 IV 83.33 mls/hr .Q12H1M JEFFREY Administration Metronidazole 500 mg in 100 mls @ 100 mls/hr 03/08/20 18:00 03/09/20 10:13 Flagyl 500 Mg/100 Ml IV 100 mls/hr Q8H JEFFREY Administration Magnesium Sulfate 2 gm in 50 mls @ 50 mls/hr 03/09/20 10:56 03/09/20 11:16 Magnesium Sulfate IV 03/09/20 11:55 50 mls/hr ONCE ONE Administration Insulin Human Regular 1 - 5 unit 03/08/20 18:00 03/09/20 06:43 Humulin R SUBQ 2 unit Q6HR JEFFREY Administration Protocol Sodium Chloride 10 ml 03/08/20 14:13 03/08/20 20:08 Normal Saline Flush 0.9% IVP 10 ml PRN PRN Administration NEEDED PER PROVIDER ORDERS Sodium Chloride 10 ml 03/08/20 17:00 03/09/20 10:13 Normal Saline Flush 0.9% IVP 10 ml 0100,0900,1700 [facility] Administration - Lab Result Fish Bone Diagrams: 03/09/20 05:24 03/09/20 05:24 - Additional Planning My Orders: My Active Orders 03/08/20 14:13 Activity Orders [RC] Q2HR IO [RC] IOSHIFT Initiate Bowel Care Protocol [RC] .protocol Initiate Personal Care Protoco [RC] .protocol Oxygen Therapy [RC] .PRN Telemetry (24 Hour) [RC] Q4HR Vital Signs [RC] Q4HR Ondansetron Inj [Zofran Inj] 4 mg IVP Q6HR PRN Sodium Chloride Flush 0.9% [Normal Saline Flush 0.9%] 10 ml IVP PRN PRN Code Status [OTHERS] Routine Condition of Patient [OTHERS] Routine DVT Prophylaxis [OTHERS] Routine 03/08/20 14:15 NPO [DIET] 03/08/20 14:16 IV Insert [RC] .ONCE 03/08/20 14:17 Initiate Line Care Protocol [RC] QSHIFT SCDs [RC] QSHIFT 03/08/20 14:19 Blood Glucose POC [RC] 0000,0600,1200,1800 Initiate Hypoglycemia Protocol [RC] .protocol 03/08/20 14:27 Acetaminophen 1,000 mg/100 ml [Ofirmev] 100 ml IV Q6HR 03/08/20 15:00 D5ns W/20 Meq KCl 1,000 ml IV 83.33 mls/hr 03/08/20 17:00 Sodium Chloride Flush 0.9% [Normal Saline Flush 0.9%] 10 ml IVP 0100,0900,1700 03/08/20 18:00 Insulin Regular Human [Humulin R] 1 - 5 unit SUBQ Q6HR metroNIDAZOLE 500 MG/100 ML [Flagyl 500 mg/100 ml] 500 mg in 100 ml IV Q8H 03/08/20 21:00 Famotidine [Pepcid] 20 mg IVP QPM 03/09/[address] [ST] Routine Evaluate and Treat OT [OT] Routine Evaluate and Treat PT [PT] Routine 03/09/20 08:00 Echo Complete w/Bubble Study [ECHO] Routine 03/09/20 10:56 Magnesium Sulfate 2 Gram [Magnesium Sulfate] 2 gm in 50 ml IV ONCE 03/09/20 11:00 Aspirin Supp 300 mg [place] DAILY 03/09/20 11:20 Admit \ Transfer \ Status [RC] .ONCE 03/09/20 18:00 cefTRIAXone [Rocephin] 1 gm Sodium Chloride 0.9% Minibag [Normal Saline 0.9% Minibag] 100 ml IV 1800 03/10/20 05:00 BMP - BASIC METABOLIC PANEL [CHEM] DAILYLAB CBC - COMP BLD CT W/AUTO DIFF [HEME] DAILYLAB MAGNESIUM [CHEM] DAILYLAB 03/11/20 05:00 BMP - BASIC METABOLIC PANEL [CHEM] DAILYLAB CBC - COMP BLD CT W/AUTO DIFF [HEME] DAILYLAB MAGNESIUM [CHEM] DAILYLAB Subjective - Subjective Nursing Reports: Other (More sleepy per RN) Objective Vital Signs: Vital Signs - 24 hr 03/08/20 03/08/20 03/08/20 12:01 12:11 12:50 Temperature 36.5 C Heart Rate 82 72 78 Heart Rate [ Brachial] Respiratory 20 19 22 Rate Blood Pressure 154/72 H 154/72 H 159/78 H Blood Pressure [Right Brachial artery] O2 Saturation 95 95 96 03/08/20 03/08/20 03/08/20 13:00 13:09 13:56 Temperature Heart Rate 72 79 80 Heart Rate [ Brachial] Respiratory 20 22 22 Rate Blood Pressure 155/84 H 146/79 H Blood Pressure [Right Brachial artery] O2 Saturation 96 95 95 03/08/20 03/08/20 03/08/20 14:35 14:50 21:00 Temperature 36.8 C 37.1 C Heart Rate 78 Heart Rate [ 88 71 Brachial] Respiratory 24 18 18 Rate Blood Pressure 143/65 H Blood Pressure 142/84 H 149/83 H [Right Brachial artery] O2 Saturation 94 92 93 03/08/20 03/09/20 03/09/20 23:24 05:00 08:35 Temperature 36.5 C 36.5 C 36.5 C Heart Rate Heart Rate [ 94 92 101 H Brachial] Respiratory 20 20 18 Rate Blood Pressure Blood Pressure 155/82 H 146/62 H 168/67 H [Right Brachial artery] O2 Saturation 93 92 96 Oxygen O2 Source Room air I&O (Last 24 Hrs): Intake and Output Totals x24h 03/07/20 03/08/20 03/09/20 23:59 23:59 23:59 Intake Total 1571.431 780.569 Output Total 800 2400 Balance 771.431 -1619.431 General: Other (Sleeping, opens L eye briefly to her name.) HEENT: Mucous membr. moist/pink Neck: Supple Neuro: Other (Somnolent, has reflexive contraction of R arm and leg, not spontaneous motion (per PT and OT)) Cardiovascular: Regular rate Respiratory: No respiratory distress, Other (O2 sats 86-88% on R.A.) Abdomen: Soft Extremities: Other (Trace-1+ edema to mid shins.) - Results Results: Laboratory Results WBC 8.8 x10^3/uL (4.8-10.8) 03/09/20 05:24 RBC 3.08 10^6/uL (4.20-5.40) L 03/09/20 05:24 Hgb 9.1 g/dL (12.0-16.0) L 03/09/20 05:24 Hct 29.6 % (37.0-47.0) L 03/09/20 05:24 MCV 96.1 fL (81.0-99.0) 03/09/20 05:24 MCH 29.5 pg (27.0-31.0) 03/09/20 05:24 MCHC 30.7 g/dL (32.0-36.0) L 03/09/20 05:24 RDW 17.4 % (12.0-15.0) H 03/09/20 05:24 Plt Count 289 10^3/uL (130-450) 03/09/20 05:24 MPV 10.6 fL (7.9-10.8) 03/09/20 05:24 Neut # (Auto) 7.3 10^3/uL (1.5-6.6) H 03/09/20 05:24 Lymph # (Auto) 0.7 10^3/uL (1.5-3.5) L 03/09/20 05:24 [place] # (Auto) 0.8 10^3/uL (0.0-1.0) 03/09/20 05:24 Eos # (Auto) 0.0 10^3/uL (0.0-0.7) 03/09/20 05:24 Baso # (Auto) 0.1 10^3/uL (0.0-0.1) 03/09/20 05:24 Absolute Nucleated RBC 0.00 x10^3/uL 03/09/20 05:24 Nucleated RBC % 0.0 /100WBC 03/09/20 05:24 ESR 29 mm/Hr (0-30) 03/08/20 12:00 PT 14.4 secs (9.9-12.6) H 03/08/20 12:00 INR 1.3 (0.8-1.2) H 03/08/20 12:00 APTT 33.1 secs (24.9-33.3) 03/08/20 12:00 Sodium 137 mmol/L (135-145) 03/09/20 05:24 Potassium 3.7 mmol/L (3.5-5.0) 03/09/20 05:24 Chloride 106 mmol/L (101-111) 03/09/20 05:24 Carbon Dioxide 24 mmol/L (21-32) 03/09/20 05:24 Anion Gap 7.0 (6-13) 03/09/20 05:24 BUN 6 mg/dL (6-20) 03/09/20 05:24 Creatinine 0.7 mg/dL (0.4-1.0) 03/09/20 05:24 Estimated GFR (MDRD) 79 (>89) L 03/09/20 05:24 Glucose 197 mg/dL (70-100) H 03/09/20 05:24 Glycated Hemoglobin 6.8 % (4.6-6.2) H 03/09/20 05:24 Estim Average Glucose 148 (70-100) H 03/09/20 05:24 Calcium 9.0 mg/dL (8.5-10.3) 03/09/20 05:24 Phosphorus 2.5 mg/dL (2.5-4.6) 03/09/20 05:24 Magnesium 1.6 mg/dL (1.7-2.8) L 03/09/20 05:24 Iron 8 ug/dL (28-170) L 03/09/20 05:24 TIBC 343 ug/dL (250-450) 03/09/20 05:24 % Saturation 2 % (20-50) L 03/09/20 05:24 Transferrin 245 mg/dL (192-382) 03/09/20 05:24 Total Bilirubin 1.4 mg/dL (0.2-1.0) H 03/08/20 12:00 AST 15 IU/L (10-42) 03/08/20 12:00 ALT 16 IU/L (10-60) 03/08/20 12:00 Alkaline Phosphatase 131 IU/L (42-121) H 03/08/20 12:00 Troponin I High Sens 7.1 ng/L (2.3-14.8) 03/08/20 12:00 Total Protein 5.5 g/dL (6.7-8.2) L 03/08/20 12:00 Albumin 2.9 g/dL (3.2-5.5) L 03/08/20 12:00 Globulin 2.6 g/dL (2.1-4.2) 03/08/20 12:00 Albumin/Globulin Ratio 1.1 (1.0-2.2) 03/08/20 12:00 Triglycerides 72 mg/dL (-149) 03/09/20 05:24 Cholesterol 88 mg/dL (-199) 03/09/20 05:24 LDL Cholesterol, Calc 28 mg/dL (-129) 03/09/20 05:24 VLDL Cholesterol 14 mg/dL 03/09/20 05:24 HDL Cholesterol 46 mg/dL (60-) L 03/09/20 05:24 LDL/HDL Ratio 0.6 (<4.4) 03/09/20 05:24 Cholesterol/HDL Ratio 1.9 (<4.4) 03/09/20 05:24 Lipase 37 U/L (22-51) 03/08/20 12:00 Vitamin B12 501 pg/mL (180-914) 03/09/20 05:24 Folate 25.00 ng/mL (5.90 - >24.8) 03/09/20 05:24 TSH 2.10 uIU/mL (0.34-5.60) 03/09/20 05:24
--- NOTE | 2020-03-09 14:17 | CT Report ---
PROCEDURE: Head W/O Stroke Protocol INDICATIONS: Worsening somnolence TECHNIQUE: Noncontrast 4.5 mm thick angled axial sections acquired from the foramen magnum to the vertex, with c oronal reformats. For radiation dose reduction, the following was used: automated exposure control, adjustment of mA and/or kV according to patient size. COMPARISON: FINDINGS: Image quality: Excellent. CSF spaces: Basal cisterns are patent. No extra-axial fluid collections. Ventricles are normal in size and shape. Brain: No midline shift. No intracranial masses or hemorrhage. [place]-white matter interface is norm al. Skull and face: Calvarium and visualized facial bones are intact, without suspicious lesions. Sinuses: Visualized sinuses and mastoids are clear. IMPRESSION: No acute intracranial disease process. This study fulfills neurological imaging criteria for inclusion or exclusion of acute stroke therapie s based on available published neurological imaging guidelines. Atherosclerotic calcifications noted in the internal carotid arteries and the vertebral arteries. Reviewed by: Brandy Villalta MD, PhD on 03/09/2020 2:15 PM PDT Approved by: Brandy Villalta MD, PhD on 03/09/2020 2:15 PM PDT Station ID: [id number]
--- NOTE | 2020-03-09 14:50 | XRAY Report ---
PROCEDURE: Chest 1 View X-Ray INDICATIONS: New desaturation TECHNIQUE: One view of the chest was acquired. COMPARISON: 03/08/2020 FINDINGS: Surgical changes and devices: None. Lungs and pleura: Small bilateral pleural fluid collections have increased slightly in size compared to 03/08/2020. Cephalization of pulmonary vasculature and central prominence compatible CHF not signif icant changed compared to prior examination. Mediastinum: Mediastinal contours appear normal. Heart is enlarged. Bones and chest wall: No suspicious bony lesions. Overlying soft tissues appear unremarkable. IMPRESSION: 1. Persistent CHF. 2. Small bilateral pleural effusions slightly increased in size compared 03/08/2020. Reviewed by: Brandy Villalta MD, PhD on 03/09/2020 2:49 PM PDT Approved by: Brandy Villalta MD, PhD on 03/09/2020 2:49 PM PDT Station ID: [id number]
[2020-03-09] MEDS ORDERED: FUROSEMIDE 20 MG/2 ML VIAL IVP STA (15:25)
[2020-03-09] MEDS: DEXTROSE 5% 1,000 ML IV SCH (15:54)
[2020-03-09] MEDS ORDERED: LEVOTHYROXINE 100 MCG VIAL IVP SCH (19:00)
[2020-03-09] MEDS: cefTRIAXone 1 GM in SODIUM CHLORIDE 0.9% MINIBAG 100 ML IV SCH (19:05)
[2020-03-09] MEDS: SODIUM CHLORIDE FLUSH 0.9% 10 ML SYRINGE IVP PRN (20:56)
[2020-03-09] MEDS: FAMOTIDINE 20 MG/2 ML SYRINGE IVP SCH (20:57)
[2020-03-10] MEDS: INSULIN REGULAR HUMAN 300 UNIT/3 ML VIAL SUBQ SCH ×4 (01:15→18:55)
[2020-03-10] MEDS: SODIUM CHLORIDE FLUSH 0.9% 10 ML SYRINGE IVP SCH ×3 (01:20→18:29)
[2020-03-10] MEDS: SODIUM CHLORIDE FLUSH 0.9% 10 ML SYRINGE IVP PRN ×2 (01:25→22:48)
[2020-03-10] MEDS: metroNIDAZOLE 500 MG/100 ML 500 MG/100 ML BAG IV SCH ×3 (01:31→18:35)
[2020-03-10 05:37] LABS: BASOPHILS # (AUTO) 0.1 10^3/uL (0.0-0.1); BASOPHILS % (AUTO) 0.5 %; EOSINOPHILS % (AUTO) 0.1 %; HGB - HEMOGLOBIN 9.2 g/dL (12.0-16.0); LYMPHOCYTES # (AUTO) 0.6 10^3/uL (1.5-3.5); LYMPHOCYTES % (AUTO) 6.1 %; MEAN CORPUSCULAR HEMOGLOBIN 29.5 pg (27.0-31.0); MEAN CORPUSCULAR VOLUME 95.2 fL (81.0-99.0); MONOCYTES # (AUTO) 0.9 10^3/uL (0.0-1.0); MONOCYTES % (AUTO) 8.3 %; NEUTROPHILS # (AUTO) 8.7 10^3/uL (1.5-6.6); NEUTROPHILS % (AUTO) 84.5 %; PLT - PLATELET COUNT 277 10^3/uL (130-450); RED BLOOD COUNT 3.12 10^6/uL (4.20-5.40); RED CELL DISTRIBUTION WIDTH 17.2 % (12.0-15.0); WHITE BLOOD COUNT 10.3 x10^3/uL (4.8-10.8)
[2020-03-10 05:47] LABS: CALCIUM 8.5 mg/dL (8.5-10.3); CREATININE 0.7 mg/dL (0.4-1.0); MAGNESIUM 1.9 mg/dL (1.7-2.8)
[2020-03-10] MEDS ORDERED: METOPROLOL 5 MG/5 ML VIAL IVP PRN (07:33)
[2020-03-10] MEDS ORDERED: hydrALAZINE INJ 20 MG/ML VIAL IVP PRN (07:34)
[2020-03-10] MEDS: POTASSIUM CHLOR 10 MEQ/100 ML 10 MEQ/100 ML BAG IV SCH ×2 (07:53→09:03)
[2020-03-10] MEDS: DEXTROSE 5% 1,000 ML IV SCH (10:22)
[2020-03-10] MEDS: ASPIRIN 300 MG SUPP PR SCH (10:23)
--- NOTE | 2020-03-10 10:33 | PROVIDER PROGRESS NOTE ---
Assessment/Plan - Problem List (1) Cerebrovascular accident (CVA) Qualifiers: CVA mechanism: occlusion Precerebral and cerebral artery: carotid artery Laterality of affected vessel: left Qualified Code(s): I63.232 - Cerebral infarction due to unspecified occlusion or stenosis of left carotid arteries Assessment/Plan: 03/10 Patient is still aphasic, her right lower extremity is slightly better she can move slightly, but her right upper extremity still totally paralyzed. Speech therapist could not finish speech and swallowing evaluation in this morning because patient still is not enough alert to do the evaluation. speech therapist will come in this afternoon to re-evaluation again. patient MRI and echo are still pending. Continue aspirin by the MI, and intravenous metoprolol as needed. Continue intravenous of D5 IV fluids,Continue PT and OT evaluation and treatment, After the patient has MRI and echo, and speech therapist evaluation, we will discuss with the patient family for further plan. (2) Hypoxia Assessment/Plan: 03/10, improved/resolved, patient has 98% sats on room air I suspect this is from hypoventilation due to her somnolence. Will obtain a chest x-ray. Start supplemental O2 to keep sats greater than 90%. (3) Carotid artery occlusion Qualifiers: Laterality: left Qualified Code(s): I65.22 - Occlusion and stenosis of left carotid artery Assessment/Plan: 03/10 Patient was not offered procedure for endovascular management in the admission because of her comorbidities, patient's the family understood and agreed the plan. We will continue treated with aspirin, Plavix, statin after the patient had swallow evaluation (4) Atrial fibrillation Assessment/Plan: Heart rate is controlled, agree to Continue with IV management, No anticoagulation was being used because of her recent surgery and repeat surgery, Currently anticoagulation not started because of risk of hemorrhagic transform ation of the stroke in the first several days. (5) Diabetes Assessment/Plan: Because the patient is a NPO now, continue D5 intravenous, we will continue sliding scale insulin. Her A1c returned at 6.8 indicating good control (at age 84). (6) Hypomagnesemia Assessment/Plan: Replace with Mag iv riders Follow BMP and Mg daily. (7) Anemia Assessment/Plan: At admission yesterday her hemoglobin was low, presumably due to the recent hospitalization in [place] for sepsis and having several surgeries. Follow CBC daily (8) History of recent acute infection Assessment/Plan: She is getting about 5 more days of antibiotics for the sepsis that she had when hospitalized at [facility] in [place]. She is on IV forms of Flagyl and a cephalosporin, Ceftriaxone. (9) Hypokalemia Resolved (10) Hyponatremia Resolved Patient was discharged from [facility] on March 02, 2020. Patient had 14 days antibiotics for her previous complication after the procedure of cholecystectomy. we will continue finish her 14 days antibiotics. - Current Meds Current Meds: Current Medications Generic Name Dose Route Start Last Admin Trade Name Freq PRN Reason Stop Dose Admin Aspirin 300 mg 03/09/20 11:00 03/10/20 10:23 [place] 300 mg DAILY JEFFREY Administration Famotidine 20 mg 03/08/20 21:00 03/09/20 20:57 Pepcid IVP 20 mg QPM JEFFREY Administration Metronidazole 500 mg in 100 mls @ 100 mls/hr 03/08/20 18:00 03/10/20 10:23 Flagyl 500 Mg/100 Ml IV 100 mls/hr Q8H JEFFREY Administration Ceftriaxone Sodium 1 gm/ 100 mls @ 200 mls/hr 03/09/20 18:00 03/09/20 19:42 Sodium Chloride IV Infused 1800 JEFFREY Infusion Dextrose 1,000 mls @ 60 mls/hr 03/09/20 16:00 03/10/20 10:22 D5w IV 60 mls/hr .[id number] JEFFREY Administration Insulin Human Regular 1 - 5 unit 03/08/20 18:00 03/10/20 06:10 Humulin R SUBQ 2 unit Q6HR JEFFREY Administration Protocol Levothyroxine Sodium 100 mcg 03/09/20 19:00 03/09/20 20:56 Synthroid Inj IVP 100 mcg Q5D JEFFREY Administration Sodium Chloride 10 ml 03/08/20 14:13 03/10/20 01:25 Normal Saline Flush 0.9% IVP 10 ml PRN PRN Administration NEEDED PER PROVIDER ORDERS Sodium Chloride 10 ml 03/08/20 17:00 03/10/20 10:23 Normal Saline Flush 0.9% IVP Not Given 0100,0900,1700 JEFFREY - Lab Result Fish Bone Diagrams: 03/10/20 05:05 03/10/20 05:05 - Additional Planning My Orders: My Active Orders 03/10/20 07:33 Metoprolol Inj [Lopressor Inj] 5 mg IVP Q6H PRN 03/10/20 07:34 hydrALAZINE INJ [Apresoline Inj] 10 mg IVP Q4H PRN Subjective - Subjective Nursing Reports: No Complaints Objective Vital Signs: Vital Signs - 24 hr 03/09/20 03/09/20 03/09/20 12:09 13:15 13:20 Temperature 36.7 C Heart Rate [ 85 85 Activity] Heart Rate [ 90 Brachial] Respiratory 22 Rate Blood Pressure 152/64 H 152/64 H [Activity] Blood Pressure 153/78 H [Right Brachial artery] O2 Saturation 89 L 03/09/20 03/09/20 03/10/20 16:03 20:12 00:24 Temperature 36.9 C 36.5 C 36.4 C L Heart Rate [ Activity] Heart Rate [ 79 93 101 H Brachial] Respiratory 24 20 20 Rate Blood Pressure [Activity] Blood Pressure 136/64 H 160/74 H 164/81 H [Right Brachial artery] O2 Saturation 98 94 97 03/10/20 06:00 Temperature 36.8 C Heart Rate [ Activity] Heart Rate [ 93 Brachial] Respiratory 18 Rate Blood Pressure [Activity] Blood Pressure 150/76 H [Right Brachial artery] O2 Saturation 98 Oxygen O2 Source Room air I&O (Last 24 Hrs): Intake and Output Totals x24h 03/08/20 03/09/20 03/10/20 23:59 23:59 23:59 Intake Total 5899.991 0560.569 1200 Output Total 800 3850 400 Balance 771.431 -1906.431 800 General: Alert, No acute distress HEENT: Atraumatic Neck: Supple Lymphatic: no adenopathy Neuro: Alert, Focal Deficits Cardiovascular: Regular rate, Normal S1, Normal S2 Respiratory: Chest non-tender, No respiratory distress Abdomen: Normal bowel sounds, Soft Extremities: Normal pulses - Results Results: Laboratory Results WBC 10.3 x10^3/uL (4.8-10.8) 03/10/20 05:05 RBC 3.12 10^6/uL (4.20-5.40) L 03/10/20 05:05 Hgb 9.2 g/dL (12.0-16.0) L 03/10/20 05:05 Hct 29.7 % (37.0-47.0) L 03/10/20 05:05 MCV 95.2 fL (81.0-99.0) 03/10/20 05:05 MCH 29.5 pg (27.0-31.0) 03/10/20 05:05 MCHC 31.0 g/dL (32.0-36.0) L 03/10/20 05:05 RDW 17.2 % (12.0-15.0) H 03/10/20 05:05 Plt Count 277 10^3/uL (130-450) 03/10/20 05:05 MPV 11.0 fL (7.9-10.8) H 03/10/20 05:05 Neut # (Auto) 8.7 10^3/uL (1.5-6.6) H 03/10/20 05:05 Lymph # (Auto) 0.6 10^3/uL (1.5-3.5) L 03/10/20 05:05 [place] # (Auto) 0.9 10^3/uL (0.0-1.0) 03/10/20 05:05 Eos # (Auto) 0.0 10^3/uL (0.0-0.7) 03/10/20 05:05 Baso # (Auto) 0.1 10^3/uL (0.0-0.1) 03/10/20 05:05 Absolute Nucleated RBC 0.00 x10^3/uL 03/10/20 05:05 Nucleated RBC % 0.0 /100WBC 03/10/20 05:05 ESR 29 mm/Hr (0-30) 03/08/20 12:00 PT 14.4 secs (9.9-12.6) H 03/08/20 12:00 INR 1.3 (0.8-1.2) H 03/08/20 12:00 APTT 33.1 secs (24.9-33.3) 03/08/20 12:00 Sodium 135 mmol/L (135-145) 03/10/20 05:05 Potassium 3.3 mmol/L (3.5-5.0) L 03/10/20 05:05 Chloride 102 mmol/L (101-111) 03/10/20 05:05 Carbon Dioxide 24 mmol/L (21-32) 03/10/20 05:05 Anion Gap 9.0 (6-13) 03/10/20 05:05 BUN 5 mg/dL (6-20) L 03/10/20 05:05 Creatinine 0.7 mg/dL (0.4-1.0) 03/10/20 05:05 Estimated GFR (MDRD) 79 (>89) L 03/10/20 05:05 Glucose 197 mg/dL (70-100) H 03/10/20 05:05 Glycated Hemoglobin 6.8 % (4.6-6.2) H 03/09/20 05:24 Estim Average Glucose 148 (70-100) H 03/09/20 05:24 Calcium 8.5 mg/dL (8.5-10.3) 03/10/20 05:05 Phosphorus 2.5 mg/dL (2.5-4.6) 03/09/20 05:24 Magnesium 1.9 mg/dL (1.7-2.8) 03/10/20 05:05 Iron 8 ug/dL (28-170) L 03/09/20 05:24 TIBC 343 ug/dL (250-450) 03/09/20 05:24 % Saturation 2 % (20-50) L 03/09/20 05:24 Transferrin 245 mg/dL (192-382) 03/09/20 05:24 Total Bilirubin 1.4 mg/dL (0.2-1.0) H 03/08/20 12:00 AST 15 IU/L (10-42) 03/08/20 12:00 ALT 16 IU/L (10-60) 03/08/20 12:00 Alkaline Phosphatase 131 IU/L (42-121) H 03/08/20 12:00 Troponin I High Sens 7.1 ng/L (2.3-14.8) 03/08/20 12:00 Total Protein 5.5 g/dL (6.7-8.2) L 03/08/20 12:00 Albumin 2.9 g/dL (3.2-5.5) L 03/08/20 12:00 Globulin 2.6 g/dL (2.1-4.2) 03/08/20 12:00 Albumin/Globulin Ratio 1.1 (1.0-2.2) 03/08/20 12:00 Triglycerides 72 mg/dL (-149) 03/09/20 05:24 Cholesterol 88 mg/dL (-199) 03/09/20 05:24 LDL Cholesterol, Calc 28 mg/dL (-129) 03/09/20 05:24 VLDL Cholesterol 14 mg/dL 03/09/20 05:24 HDL Cholesterol 46 mg/dL (60-) L 03/09/20 05:24 LDL/HDL Ratio 0.6 (<4.4) 03/09/20 05:24 Cholesterol/HDL Ratio 1.9 (<4.4) 03/09/20 05:24 Lipase 37 U/L (22-51) 03/08/20 12:00 Vitamin B12 501 pg/mL (180-914) 03/09/20 05:24 Folate 25.00 ng/mL (5.90 - >24.8) 03/09/20 05:24 TSH 2.10 uIU/mL (0.34-5.60) 03/09/20 05:24 Sepsis Event Note (H) - Evaluation Current Stage of Sepsis: Ruled out ABX Reporting Has patient been on IV antibiotics over the past 48 hours?: Yes Current Medications - Current Medications Current Medications: Active Medications Aspirin () 300 mg MI DAILY [facility] Last Admin: 03/10/20 10:23 Dose: 300 mg Famotidine (Pepcid) 20 mg IVP QPM [facility] Last Admin: 03/09/20 20:57 Dose: 20 mg Hydralazine HCl (Apresoline Inj) 10 mg IVP Q4H PRN PRN Reason: Hypertensive Emergency Acetaminophen (Ofirmev) 100 mls @ 400 mls/hr IV Q6HR PRN PRN Reason: Pain or Fever > 38C (100.4F) Metronidazole (Flagyl 500 Mg/100 Ml) 500 mg in 100 mls @ 100 mls/hr IV Q8H [facility] Last Admin: 03/10/20 10:23 Dose: 100 mls/hr Ceftriaxone Sodium 1 gm/ (Sodium Chloride) 100 mls @ 200 mls/hr IV 1800 [facility] Last Infusion: 03/09/20 19:42 Dose: Infused Dextrose (D5w) 1,000 mls @ 60 mls/hr IV .[id number] [facility] Last Admin: 03/10/20 10:22 Dose: 60 mls/hr Insulin Human Regular (Humulin R) 1 - 5 unit SUBQ Q6HR JEFFREY; Protocol Last Admin: 03/10/20 06:10 Dose: 2 unit Levothyroxine Sodium (Synthroid Inj) 100 mcg IVP Q5D [facility] Last Admin: 03/09/20 20:56 Dose: 100 mcg Metoprolol Tartrate (Lopressor Inj) 5 mg IVP Q6H PRN PRN Reason: Tachycardia Ondansetron HCl (Zofran Inj) 4 mg IVP Q6HR PRN PRN Reason: Nausea / Vomiting Sodium Chloride (Normal Saline Flush 0.9%) 10 ml IVP PRN PRN PRN Reason: NEEDED PER PROVIDER ORDERS Last Admin: 03/10/20 01:25 Dose: 10 ml Sodium Chloride (Normal Saline Flush 0.9%) 10 ml IVP 0100,0900,1700 [facility] Last Admin: 03/10/20 10:23 Dose: Not Given Atorvastatin [Lovastatin] 20 mg PO HS 01/11/14 Clopidogrel [Plavix] 75 mg PO DAILY 01/11/14 Levothyroxine [Synthroid] 50 mcg PO QDAC 01/11/14 Metformin HCl 500 mg PO TID 01/11/14 Potassium Chloride [Micro-K] 10 meq PO BIDWM 01/11/14 amLODIPine [Norvasc] 5 mg PO DAILY 01/11/14 hydroCHLOROthiazide [Hydrodiuril] 25 mg PO DAILY 01/11/14 lisinopriL [Zestril] 40 mg PO BID 01/11/14 Ascorbic Acid [Vitamin C] 500 mg PO BID 02/15/20 Aspirin 81 mg PO [id number] 02/15/20 Famotidine 20 mg PO QDAC 02/15/20 Glipizide [Glipizide Xl] 2.5 mg PO QDAC 02/15/20 Multivit-Min/FA/Lycopen/Lutein [Centrum Silver Men Tablet] 1 each PO QDAC 02/15/20 Metoprolol Tartrate 100 mg PO BID 03/08/20
[2020-03-10] MEDS: cefTRIAXone 1 GM in SODIUM CHLORIDE 0.9% MINIBAG 100 ML IV SCH (18:28)
--- NOTE | 2020-03-10 18:28 | MRI Report ---
PROCEDURE: Brain W/O INDICATIONS: CVA TECHNIQUE: Noncontrast axial T1 spin echo, axial T2 fast spin echo, sagittal and axial FLAIR, coronal T2 fast sp in echo, axial gradient echo, axial diffusion and ADC through the brain. COMPARISON: None. FINDINGS: Image quality: Excellent. CSF Spaces: Basal cisterns are patent. No extra-axial fluid collections. Ventricles are normal in size and shape. Brain: Diffusion weighted sequence shows extensive area of restricted diffusion involving left front al parietal temporal lobes consistent with acute left MCA territory infarction. There is diffuse cere bral and cerebellar cortical atrophy and moderate periventricular and deep white matter chronic small vessel ischemic changes. No intracranial masses or hemorrhage. [place]/white matter interface is yesenia l. Brainstem appears normal. Skull and face: Calvarium has normal marrow signal. Orbits appear normal. Sinuses: Sinuses and mastoids are clear. IMPRESSION: 1. Moderate size acute left MCA territory infarction as above. 2. No evidence of intracranial bleed, midline shift or significant mass effect. 3. Diffuse atrophy and moderate periventricular and deep white matter chronic small vessel ischemic c hanges. Reviewed by: Compa Tapia MD on 03/10/2020 6:26 PM PDT Approved by: Compa Tapia MD on 03/10/2020 6:26 PM PDT Station ID: [id number]
[2020-03-10] MEDS: FAMOTIDINE 20 MG/2 ML SYRINGE IVP SCH (22:48)
[2020-03-11] MEDS: INSULIN REGULAR HUMAN 300 UNIT/3 ML VIAL SUBQ SCH ×4 (00:09→18:11)
[2020-03-11] MEDS: SODIUM CHLORIDE FLUSH 0.9% 10 ML SYRINGE IVP SCH ×3 (00:43→16:51)
[2020-03-11] MEDS: metroNIDAZOLE 500 MG/100 ML 500 MG/100 ML BAG IV SCH ×3 (03:30→18:12)
[2020-03-11 05:45] LABS: BASOPHILS # (AUTO) 0.1 10^3/uL (0.0-0.1); BASOPHILS % (AUTO) 1.1 %; EOSINOPHILS # (AUTO) 0.2 10^3/uL (0.0-0.7); EOSINOPHILS % (AUTO) 2.4 %; HGB - HEMOGLOBIN 9.4 g/dL (12.0-16.0); LYMPHOCYTES # (AUTO) 1.2 10^3/uL (1.5-3.5); LYMPHOCYTES % (AUTO) 16.2 %; MEAN CORPUSCULAR HEMOGLOBIN 28.3 pg (27.0-31.0); MEAN CORPUSCULAR HGB CONC 29.8 g/dL (32.0-36.0); MEAN CORPUSCULAR VOLUME 94.9 fL (81.0-99.0); MEAN PLATELET VOLUME 10.8 fL (7.9-10.8); MONOCYTES # (AUTO) 0.8 10^3/uL (0.0-1.0); MONOCYTES % (AUTO) 11.2 %; NEUTROPHILS # (AUTO) 4.9 10^3/uL (1.5-6.6); NEUTROPHILS % (AUTO) 68.8 %; PLT - PLATELET COUNT 255 10^3/uL (130-450); RED BLOOD COUNT 3.32 10^6/uL (4.20-5.40); RED CELL DISTRIBUTION WIDTH 17.2 % (12.0-15.0); WHITE BLOOD COUNT 7.2 x10^3/uL (4.8-10.8)
[2020-03-11 05:52] LABS: CALCIUM 8.5 mg/dL (8.5-10.3); CREATININE 0.7 mg/dL (0.4-1.0); MAGNESIUM 1.7 mg/dL (1.7-2.8)
[2020-03-11] MEDS: DEXTROSE 5% 1,000 ML IV SCH ×3 (08:41→23:25)
[2020-03-11] MEDS: ASPIRIN 300 MG SUPP PR SCH (08:45)
--- NOTE | 2020-03-11 15:03 | PROVIDER PROGRESS NOTE ---
Assessment/Plan - Problem List (1) Hypersomnolence disorder, persistent, moderate Assessment/Plan: Her Synthroid was given iv Her brain CT showed no hemorrhage or mass effect 2 days ago when she started being so somnolent The brain MRI showed no mass effect yesterday, a moderate CVA was seen This morning she was awake with both eyes open and smiling on the L side of face, when she saw her Will promote wakefullness with PT and OT daily, cuurently she is just propped up dangling feet over edge of bed. Avoid sedatives and narcotics Give D5 for calories by iv. Retry wallowing eval, since she is slowly awakening, or woll need to discuss PEG tube, possible Code Status change, poss Palliative Care consult. (2) Cerebrovascular accident (CVA) Qualifiers: CVA mechanism: occlusion Precerebral and cerebral artery: carotid artery Laterality of affected vessel: left Qualified Code(s): I63.232 - Cerebral infarction due to unspecified occlusion or stenosis of left carotid arteries Assessment/Plan: There is no signs of hemorrhagic transformation by MRI in the stroke was moderate in size. She is slowly starting to wake up. We will reorder swallowing eval and plan PT and OT. If there is no improvement and she cannot swallow, will need to discuss PEG tube placement with the family. Overall if she worsens, will need to discuss hospice and a change of CODE STATUS. On the day of admission, the daughter who gave me the whole history, stated "while she got through this much at [facility], no reason to stop now". The daughter wanted her mother to be a full code. (3) Hypoxia Assessment/Plan: Improved, after receiving 1 dose of IV Lasix for mild volume overload by chest x-ray. It also may have been from hypersomnolence. (4) Carotid artery occlusion Qualifiers: Laterality: left Qualified Code(s): I65.22 - Occlusion and stenosis of left carotid artery Assessment/Plan: She was deemed not a vascular candidate at the time of admission. She is getting aspirin per rectum. When she can swallow, the plan is to use aspirin plus Plavix. (5) Atrial fibrillation Assessment/Plan: She had new onset of A. fib when in [facility]. This is presumed to be the reason for an embolic stroke which occluded her carotid. Continue with beta-blockers for rate control. She could not be on anticoagulants before because of the recent surgery. Not an anticoagulant candidate now to prevent hemorrhagic transformation of the stroke. When she can take p.o., aspirin plus Plavix will be the treatment. (6) Diabetes Assessment/Plan: She was on an oral agent at home. Here she is getting D5 and sliding scale insulin coverage in a patient who is n.p.o. based on fingerstick checks (7) Hypomagnesemia Assessment/Plan: Replace. Follow mag daily till normal (8) Anemia Assessment/Plan: Awaiting B12 and folate levels and iron panel. If iron is low, will check guaiac in stool (9) History of recent acute infection Assessment/Plan: She is finishing her course of treatment that was recommended at discharge from [facility]. All antibiotics are by IV because she cannot swallow. The stop dates were already ordered (10) Hypokalemia Assessment/Plan: Resolved (11) Hyponatremia Assessment/Plan: Resolved - Current Meds Current Meds: Current Medications Generic Name Dose Route Start Last Admin Trade Name Miguelq PRN Reason Stop Dose Admin Aspirin 300 mg 03/09/20 11:00 03/11/20 08:45 MI 300 mg DAILY JEFFREY Administration Famotidine 20 mg 03/08/20 21:00 03/10/20 22:48 Pepcid IVP 20 mg QPM JEFFREY Administration Metronidazole 500 mg in 100 mls @ 100 mls/hr 03/08/20 18:00 03/11/20 12:59 Flagyl 500 Mg/100 Ml IV Infused Q8H JEFFREY Infusion Ceftriaxone Sodium 1 gm/ 100 mls @ 200 mls/hr 03/09/20 18:00 03/10/20 18:58 Sodium Chloride IV Infused 1800 JEFFREY Infusion Dextrose 1,000 mls @ 60 mls/hr 03/09/20 16:00 03/11/20 08:46 D5w IV 60 mls/hr .[id number] JEFFREY Administration Insulin Human Regular 1 - 5 unit 03/08/20 18:00 03/11/20 12:02 Humulin R SUBQ 1 unit Q6HR JEFFREY Administration Protocol Levothyroxine Sodium 100 mcg 03/09/20 19:00 03/09/20 20:56 Synthroid Inj IVP 100 mcg Q5D JEFFREY Administration Sodium Chloride 10 ml 03/08/20 14:13 03/10/20 22:48 Normal Saline Flush 0.9% IVP 10 ml PRN PRN Administration NEEDED PER PROVIDER ORDERS Sodium Chloride 10 ml 03/08/20 17:00 03/11/20 09:04 Normal Saline Flush 0.9% IVP 10 ml 0100,0900,1700 JEFFREY Administration - Lab Result Fish Bone Diagrams: 03/11/20 05:39 03/11/20 05:39 Subjective - Subjective Patient Reports: Other (sleepy) Nursing Reports: Other (She awoke with both eyes open, trying to smile when she was dangling her legs, supported from front and back, when she could see the in the room in front of) Objective Vital Signs: Vital Signs - 24 hr 03/10/20 03/10/20 03/10/20 15:50 20:23 21:00 Temperature 36.6 C 36.7 C Heart Rate Heart Rate [ 96 Brachial] Heart Rate [ 87 78 Monitoring electrodes] Respiratory 18 18 Rate Blood Pressure 144/78 H 153/90 H [Right Brachial artery] O2 Saturation 93 99 03/10/20 03/11/20 03/11/20 23:50 04:45 07:52 Temperature 36.8 C 36.2 C L 36.4 C L Heart Rate Heart Rate [ Brachial] Heart Rate [ 93 92 83 Monitoring electrodes] Respiratory 16 16 18 Rate Blood Pressure 120/78 156/91 H 117/89 H [Right Brachial artery] O2 Saturation 99 96 98 03/11/20 03/11/20 03/11/20 09:00 09:35 10:52 Temperature 36.4 C L Heart Rate 79 Heart Rate [ Brachial] Heart Rate [ Monitoring electrodes] Respiratory 20 Rate Blood Pressure [Right Brachial artery] O2 Saturation 92 96 98 03/11/20 14:00 Temperature 36.6 C Heart Rate Heart Rate [ Brachial] Heart Rate [ 92 Monitoring electrodes] Respiratory 18 Rate Blood Pressure 153/94 H [Right Brachial artery] O2 Saturation 94 Oxygen O2 Source Nasal cannula I&O (Last 24 Hrs): Intake and Output Totals x24h 03/09/20 03/10/20 03/11/20 23:59 23:59 23:59 Intake Total 8893.837 3444 685 Output Total 3850 1700 1125 Balance -1906.431 315 -440 General: Other (Still very somnolent.) HEENT: Mucous membr. moist/pink Neck: Supple Neuro: Other (Right arm and right leg weak, right facial droop, overall very somnolent, slightly less than yesterday.) Cardiovascular: Other (Irreg irreg) Respiratory: No respiratory distress Abdomen: Soft Extremities: No edema - Results Results: Laboratory Results WBC 7.2 x10^3/uL (4.8-10.8) 03/11/20 05:39 RBC 3.32 10^6/uL (4.20-5.40) L 03/11/20 05:39 Hgb 9.4 g/dL (12.0-16.0) L 03/11/20 05:39 Hct 31.5 % (37.0-47.0) L 03/11/20 05:39 MCV 94.9 fL (81.0-99.0) 03/11/20 05:39 MCH 28.3 pg (27.0-31.0) 03/11/20 05:39 MCHC 29.8 g/dL (32.0-36.0) L 03/11/20 05:39 RDW 17.2 % (12.0-15.0) H 03/11/20 05:39 Plt Count 255 10^3/uL (130-450) 03/11/20 05:39 MPV 10.8 fL (7.9-10.8) 03/11/20 05:39 Neut # (Auto) 4.9 10^3/uL (1.5-6.6) 03/11/20 05:39 Lymph # (Auto) 1.2 10^3/uL (1.5-3.5) L 03/11/20 05:39 [place] # (Auto) 0.8 10^3/uL (0.0-1.0) 03/11/20 05:39 Eos # (Auto) 0.2 10^3/uL (0.0-0.7) 03/11/20 05:39 Baso # (Auto) 0.1 10^3/uL (0.0-0.1) 03/11/20 05:39 Absolute Nucleated RBC 0.00 x10^3/uL 03/11/20 05:39 Nucleated RBC % 0.0 /100WBC 03/11/20 05:39 ESR 29 mm/Hr (0-30) 03/08/20 12:00 PT 14.4 secs (9.9-12.6) H 03/08/20 12:00 INR 1.3 (0.8-1.2) H 03/08/20 12:00 APTT 33.1 secs (24.9-33.3) 03/08/20 12:00 Sodium 135 mmol/L (135-145) 03/11/20 05:39 Potassium 3.5 mmol/L (3.5-5.0) 03/11/20 05:39 Chloride 103 mmol/L (101-111) 03/11/20 05:39 Carbon Dioxide 24 mmol/L (21-32) 03/11/20 05:39 Anion Gap 8.0 (6-13) 03/11/20 05:39 BUN 5 mg/dL (6-20) L 03/11/20 05:39 Creatinine 0.7 mg/dL (0.4-1.0) 03/11/20 05:39 Estimated GFR (MDRD) 79 (>89) L 03/11/20 05:39 Glucose 171 mg/dL (70-100) H 03/11/20 05:39 POC Whole Bld Glucose 140 mg/dL (70 - 100) H 03/10/20 23:48 Glycated Hemoglobin 6.8 % (4.6-6.2) H 03/09/20 05:24 Estim Average Glucose 148 (70-100) H 03/09/20 05:24 Calcium 8.5 mg/dL (8.5-10.3) 03/11/20 05:39 Phosphorus 2.5 mg/dL (2.5-4.6) 03/09/20 05:24 Magnesium 1.7 mg/dL (1.7-2.8) 03/11/20 05:39 Iron 8 ug/dL (28-170) L 03/09/20 05:24 TIBC 343 ug/dL (250-450) 03/09/20 05:24 % Saturation 2 % (20-50) L 03/09/20 05:24 Transferrin 245 mg/dL (192-382) 03/09/20 05:24 Total Bilirubin 1.4 mg/dL (0.2-1.0) H 03/08/20 12:00 AST 15 IU/L (10-42) 03/08/20 12:00 ALT 16 IU/L (10-60) 03/08/20 12:00 Alkaline Phosphatase 131 IU/L (42-121) H 03/08/20 12:00 Troponin I High Sens 7.1 ng/L (2.3-14.8) 03/08/20 12:00 Total Protein 5.5 g/dL (6.7-8.2) L 03/08/20 12:00 Albumin 2.9 g/dL (3.2-5.5) L 03/08/20 12:00 Globulin 2.6 g/dL (2.1-4.2) 03/08/20 12:00 Albumin/Globulin Ratio 1.1 (1.0-2.2) 03/08/20 12:00 Triglycerides 72 mg/dL (-149) 03/09/20 05:24 Cholesterol 88 mg/dL (-199) 03/09/20 05:24 LDL Cholesterol, Calc 28 mg/dL (-129) 03/09/20 05:24 VLDL Cholesterol 14 mg/dL 03/09/20 05:24 HDL Cholesterol 46 mg/dL (60-) L 03/09/20 05:24 LDL/HDL Ratio 0.6 (<4.4) 03/09/20 05:24 Cholesterol/HDL Ratio 1.9 (<4.4) 03/09/20 05:24 Lipase 37 U/L (22-51) 03/08/20 12:00 Vitamin B12 501 pg/mL (180-914) 03/09/20 05:24 Folate 25.00 ng/mL (5.90 - >24.8) 03/09/20 05:24 TSH 2.10 uIU/mL (0.34-5.60) 03/09/20 05:24 Coronavirus (PCR) NEGATIVE 03/10/20 10:30 Sepsis Event Note (H) - Evaluation Current Stage of Sepsis: Ruled out
[2020-03-11] MEDS: cefTRIAXone 1 GM in SODIUM CHLORIDE 0.9% MINIBAG 100 ML IV SCH (17:13)
[2020-03-11] MEDS: FAMOTIDINE 20 MG/2 ML SYRINGE IVP SCH (20:33)
[2020-03-11] MEDS: SODIUM CHLORIDE FLUSH 0.9% 10 ML SYRINGE IVP PRN (20:33)
[2020-03-12] MEDS: INSULIN REGULAR HUMAN 300 UNIT/3 ML VIAL SUBQ SCH ×2 (00:01→06:02)
[2020-03-12] MEDS: SODIUM CHLORIDE FLUSH 0.9% 10 ML SYRINGE IVP SCH ×3 (02:15→19:02)
[2020-03-12] MEDS: metroNIDAZOLE 500 MG/100 ML 500 MG/100 ML BAG IV SCH ×2 (02:15→09:35)
[2020-03-12] MEDS: DEXTROSE 5% 1,000 ML IV SCH (02:29)
[2020-03-12] MEDS: ASPIRIN 300 MG SUPP PR SCH (09:35)
[2020-03-12] MEDS ORDERED: ACETAMINOPHEN 325 MG TABLET PO PRN (11:26)
[2020-03-12] MEDS ORDERED: DEXTROSE 5% 1,000 ML IV SCH (11:26)
[2020-03-12] MEDS: CLOPIDOGREL 75 MG TABLET PO SCH (11:48)
[2020-03-12] MEDS: INSULIN ASPART 300 UNIT/3 ML PEN SUBQ SCH ×3 (11:59→21:56)
--- NOTE | 2020-03-12 12:21 | PROVIDER PROGRESS NOTE ---
Assessment/Plan - Problem List (1) Cerebrovascular accident (CVA) Qualifiers: CVA mechanism: occlusion Precerebral and cerebral artery: carotid artery Laterality of affected vessel: left Qualified Code(s): I63.232 - Cerebral infarction due to unspecified occlusion or stenosis of left carotid arteries Assessment/Plan: 03/12, Patient is alert and smile, seems the patient could understand we talk about the care plan when I meet patient's daughter at the bedside, but patient could not speak, she had a stroke. Patient had swallow evaluation By speech therapist, patient has dysphagia diet now. Discuss the care plan with the patient's daughter in the bedside. Patient's daughter agree patient can be discharged to the [facility] for continue management of patient's stroke. pt has occluded distal left internal carotid artery. patient's daughter understand and agree patient is not candidate for the procedure for endovascular management because of her comorbidities. we consulted with [place] neurologist and their manager environmental affairs. Patient may follow-up with PCP and referral to neurologist and vascular surgeon continue evaluation and management as outpatient. 03/10 Patient is still aphasic, her right lower extremity is slightly better she can move slightly, but her right upper extremity still totally paralyzed. Speech therapist could not finish speech and swallowing evaluation in this morning because patient still is not enough alert to do the evaluation. speech therapist will come in this afternoon to re-evaluation again. patient MRI and echo are still pending. Continue aspirin by the NE, and intravenous metoprolol as needed. Continue intravenous of D5 IV fluids,Continue PT and OT evaluation and treatment, After the patient has MRI and echo, and speech therapist evaluation, we will discuss with the patient family for further plan. (2) Hypoxia Assessment/Plan: 618, stable 03/10, improved/resolved, patient has 98% sats on room air I suspect this is from hypoventilation due to her somnolence. Will obtain a chest x-ray. Start supplemental O2 to keep sats greater than 90%. (3) Carotid artery occlusion 03/12, Discussed the care plan as the above with the patient's daughter in the bedside. pt has occluded distal left internal carotid artery. patient's daughter understand and agree patient is not candidate for the procedure for endovascular management because of her comorbidities. we consulted with [place] neurologist and their manager environmental affairs. Patient may follow-up with PCP and referral to neurologist and vascular surgeon continue evaluation and management as outpatient. 03/10 Patient was not offered procedure for endovascular management in the admission because of her comorbidities, patient's the family understood and agreed the plan. We will continue treated with aspirin, Plavix, statin after the patient had swallow evaluation (4) Atrial fibrillation Assessment/Plan: 03/12 Stable, will resume home metoprolol, resume home aspirin and Plavix, cont inue telemetry and vital signs monitor Heart rate is controlled, agree to Continue with IV management, No anticoagulation was being used because of her recent surgery and repeat surgery, Currently anticoagulation not started because of risk of hemorrhagic transformation of the stroke in the first several days. (5) Diabetes Assessment/Plan: 03/12, patient had A1c 6.8, patient have dysphagia diet, will continue sliding scale and ACHS to monitor glucose and continue hypoglycemia protocol Because the patient is a NPO now, continue D5 intravenous, we will continue sliding scale insulin. Her A1c returned at 6.8 indicating good control (at age 84). (6) Hypomagnesemia Assessment/Plan: 03-12, stable Replace with Mag iv riders Follow BMP and Mg daily. (7) Anemia Assessment/Plan: 03/12, stable At admission yesterday her hemoglobin was low, presumably due to the recent hospitalization in [place] for sepsis and having several surgeries. Follow CBC daily (8) History of recent acute infection Assessment/Plan: 03/04/2017, we will continue home meds until March 16 She is getting about 5 more days of antibiotics for the sepsis that she had when hospitalized at [facility] in [place]. She is on IV forms of Flagyl and a cephalosporin, Ceftriaxone. (9) Hypokalemia Resolved (10) Hyponatremia Resolved - Current Meds Current Meds: Current Medications Generic Name Dose Route Start Last Admin Trade Name Freq PRN Reason Stop Dose Admin Clopidogrel Bisulfate 75 mg 03/12/20 12:00 03/12/20 11:48 Plavix PO 75 mg DAILY JEFFREY Administration Metronidazole 500 mg in 100 mls @ 100 mls/hr 03/08/20 18:00 03/12/20 10:35 Flagyl 500 Mg/100 Ml IV Infused Q8H JEFFREY Infusion Ceftriaxone Sodium 1 gm/ 100 mls @ 200 mls/hr 03/09/20 18:00 03/11/20 17:43 Sodium Chloride IV Infused 1800 JEFFREY Infusion Dextrose 1,000 mls @ 40 mls/hr 03/12/20 11:26 03/12/20 11:48 D5w IV 40 mls/hr .Q25H JEFFREY Administration Insulin Aspart 1 - 5 unit 03/12/20 12:00 03/12/20 11:59 Novolog SUBQ 1 unit 0800,1200,1700,2100 JEFFREY Administration Protocol Sodium Chloride 10 ml 03/08/20 14:13 03/11/20 20:33 Normal Saline Flush 0.9% IVP 10 ml PRN PRN Administration NEEDED PER PROVIDER ORDERS Sodium Chloride 10 ml 03/08/20 17:00 03/12/20 09:35 Normal Saline Flush 0.9% IVP Not Given 0100,0900,1700 JEFFREY - Lab Result Fish Bone Diagrams: 03/11/20 05:39 03/11/20 05:39 - Additional Planning My Orders: My Active Orders 03/12/20 11:53 lisinopriL [Zestril] 20 mg PO BID 03/12/20 12:30 Metoprolol Succinate [Toprol Xl] 50 mg PO BID 03/12/20 21:00 Atorvastatin [Lipitor] 40 mg PO QPM 03/13/20 05:00 BMP - BASIC METABOLIC PANEL [CHEM] DAILYLAB CBC - COMP BLD CT W/AUTO DIFF [HEME] DAILYLAB MAGNESIUM [CHEM] DAILYLAB PHOSPHORUS [CHEM] DAILYLAB 03/13/20 09:00 amLODIPine [Norvasc] 5 mg PO DAILY 03/14/20 05:00 BMP - BASIC METABOLIC PANEL [CHEM] DAILYLAB CBC - COMP BLD CT W/AUTO DIFF [HEME] DAILYLAB MAGNESIUM [CHEM] DAILYLAB PHOSPHORUS [CHEM] DAILYLAB 03/15/20 05:00 BMP - BASIC METABOLIC PANEL [CHEM] DAILYLAB CBC - COMP BLD CT W/AUTO DIFF [HEME] DAILYLAB 03/16/20 05:00 BMP - BASIC METABOLIC PANEL [CHEM] DAILYLAB CBC - COMP BLD CT W/AUTO DIFF [HEME] DAILYLAB 03/17/20 05:00 BMP - BASIC METABOLIC PANEL [CHEM] DAILYLAB CBC - COMP BLD CT W/AUTO DIFF [HEME] DAILYLAB Subjective - Subjective Nursing Reports: No Complaints Objective Vital Signs: Vital Signs - 24 hr 03/11/20 03/11/20 03/11/20 14:00 15:32 20:05 Temperature 36.6 C 36.3 C L 36.8 C Heart Rate [ 97 89 Brachial] Heart Rate [ 92 Monitoring electrodes] Respiratory 18 20 20 Rate Blood Pressure [Left Brachial artery] Blood Pressure 153/94 H 146/75 H 150/83 H [Right Brachial artery] O2 Saturation 94 95 96 03/12/20 03/12/20 03/12/20 00:19 04:37 08:32 Temperature 36.9 C 36.9 C 36.6 C Heart Rate [ 77 84 Brachial] Heart Rate [ 81 Monitoring electrodes] Respiratory 20 20 20 Rate Blood Pressure 148/71 H [Left Brachial artery] Blood Pressure 153/76 H 164/92 H [Right Brachial artery] O2 Saturation 96 93 92 03/12/20 11:24 Temperature 36.8 C Heart Rate [ 100 Brachial] Heart Rate [ Monitoring electrodes] Respiratory 20 Rate Blood Pressure [Left Brachial artery] Blood Pressure 162/77 H [Right Brachial artery] O2 Saturation 95 Oxygen O2 Source Room air I&O (Last 24 Hrs): Intake and Output Totals x24h 03/10/20 03/11/20 03/12/20 23:59 23:59 23:59 Intake Total 2014 1144 Output Total 1700 1875 800 Balance 315 -990 344 General: Alert, No acute distress HEENT: Atraumatic Neck: Supple Lymphatic: no adenopathy Neuro: Alert, Focal Deficits, Other (pt could not speech) Cardiovascular: Normal S1, Normal S2 Respiratory: Chest non-tender, No respiratory distress, Breath sounds nml Abdomen: Normal bowel sounds, Soft Extremities: Normal pulses - Results Results: Laboratory Results WBC 7.2 x10^3/uL (4.8-10.8) 03/11/20 05:39 RBC 3.32 10^6/uL (4.20-5.40) L 03/11/20 05:39 Hgb 9.4 g/dL (12.0-16.0) L 03/11/20 05:39 Hct 31.5 % (37.0-47.0) L 03/11/20 05:39 MCV 94.9 fL (81.0-99.0) 03/11/20 05:39 MCH 28.3 pg (27.0-31.0) 03/11/20 05:39 MCHC 29.8 g/dL (32.0-36.0) L 03/11/20 05:39 RDW 17.2 % (12.0-15.0) H 03/11/20 05:39 Plt Count 255 10^3/uL (130-450) 03/11/20 05:39 MPV 10.8 fL (7.9-10.8) 03/11/20 05:39 Neut # (Auto) 4.9 10^3/uL (1.5-6.6) 03/11/20 05:39 Lymph # (Auto) 1.2 10^3/uL (1.5-3.5) L 03/11/20 05:39 [place] # (Auto) 0.8 10^3/uL (0.0-1.0) 03/11/20 05:39 Eos # (Auto) 0.2 10^3/uL (0.0-0.7) 03/11/20 05:39 Baso # (Auto) 0.1 10^3/uL (0.0-0.1) 03/11/20 05:39 Absolute Nucleated RBC 0.00 x10^3/uL 03/11/20 05:39 Nucleated RBC % 0.0 /100WBC 03/11/20 05:39 ESR 29 mm/Hr (0-30) 03/08/20 12:00 PT 14.4 secs (9.9-12.6) H 03/08/20 12:00 INR 1.3 (0.8-1.2) H 03/08/20 12:00 APTT 33.1 secs (24.9-33.3) 03/08/20 12:00 Sodium 135 mmol/L (135-145) 03/11/20 05:39 Potassium 3.5 mmol/L (3.5-5.0) 03/11/20 05:39 Chloride 103 mmol/L (101-111) 03/11/20 05:39 Carbon Dioxide 24 mmol/L (21-32) 03/11/20 05:39 Anion Gap 8.0 (6-13) 03/11/20 05:39 BUN 5 mg/dL (6-20) L 03/11/20 05:39 Creatinine 0.7 mg/dL (0.4-1.0) 03/11/20 05:39 Estimated GFR (MDRD) 79 (>89) L 03/11/20 05:39 Glucose 171 mg/dL (70-100) H 03/11/20 05:39 POC Whole Bld Glucose 140 mg/dL (70 - 100) H 03/10/20 23:48 Glycated Hemoglobin 6.8 % (4.6-6.2) H 03/09/20 05:24 Estim Average Glucose 148 (70-100) H 03/09/20 05:24 Calcium 8.5 mg/dL (8.5-10.3) 03/11/20 05:39 Phosphorus 2.5 mg/dL (2.5-4.6) 03/09/20 05:24 Magnesium 1.7 mg/dL (1.7-2.8) 03/11/20 05:39 Iron 8 ug/dL (28-170) L 03/09/20 05:24 TIBC 343 ug/dL (250-450) 03/09/20 05:24 % Saturation 2 % (20-50) L 03/09/20 05:24 Transferrin 245 mg/dL (192-382) 03/09/20 05:24 Total Bilirubin 1.4 mg/dL (0.2-1.0) H 03/08/20 12:00 AST 15 IU/L (10-42) 03/08/20 12:00 ALT 16 IU/L (10-60) 03/08/20 12:00 Alkaline Phosphatase 131 IU/L (42-121) H 03/08/20 12:00 Troponin I High Sens 7.1 ng/L (2.3-14.8) 03/08/20 12:00 Total Protein 5.5 g/dL (6.7-8.2) L 03/08/20 12:00 Albumin 2.9 g/dL (3.2-5.5) L 03/08/20 12:00 Globulin 2.6 g/dL (2.1-4.2) 03/08/20 12:00 Albumin/Globulin Ratio 1.1 (1.0-2.2) 03/08/20 12:00 Triglycerides 72 mg/dL (-149) 03/09/20 05:24 Cholesterol 88 mg/dL (-199) 03/09/20 05:24 LDL Cholesterol, Calc 28 mg/dL (-129) 03/09/20 05:24 VLDL Cholesterol 14 mg/dL 03/09/20 05:24 HDL Cholesterol 46 mg/dL (60-) L 03/09/20 05:24 LDL/HDL Ratio 0.6 (<4.4) 03/09/20 05:24 Cholesterol/HDL Ratio 1.9 (<4.4) 03/09/20 05:24 Lipase 37 U/L (22-51) 03/08/20 12:00 Vitamin B12 501 pg/mL (180-914) 03/09/20 05:24 Folate 25.00 ng/mL (5.90 - >24.8) 03/09/20 05:24 TSH 2.10 uIU/mL (0.34-5.60) 03/09/20 05:24 Coronavirus (PCR) NEGATIVE 03/10/20 10:30 Sepsis Event Note (H) - Evaluation Current Stage of Sepsis: Ruled out ABX Reporting Has patient been on IV antibiotics over the past 48 hours?: Yes Current Medications - Current Medications Current Medications: Active Medications Acetaminophen (Tylenol) 650 mg PO Q4HR PRN PRN Reason: Pain or Fever > 38C (100.4F) Amlodipine Besylate (Norvasc) 5 mg PO DAILY [facility] Aspirin ([place] Aspirin) 81 mg PO QDBREAKFAST [facility] Atorvastatin Calcium (Lipitor) 40 mg PO QPM [facility] Clopidogrel Bisulfate (Plavix) 75 mg PO DAILY [facility] Last Admin: 03/12/20 11:48 Dose: 75 mg Documented by: Famotidine (Pepcid) 20 mg PO QDAC [facility] Dextrose (D5w) 1,000 mls @ 40 mls/hr IV .Q25H [facility] Last Admin: 03/12/20 11:48 Dose: 40 mls/hr Documented by: Insulin Aspart (Novolog) 1 - 5 unit SUBQ 0800,1200,1700,2100 [facility]; Protocol Last Admin: 03/12/20 11:59 Dose: 1 unit Documented by: Levothyroxine Sodium (Synthroid) 50 mcg PO QDAC [facility] Lisinopril (Zestril) 20 mg PO BID [facility] Last Admin: 03/12/20 12:26 Dose: 20 mg Documented by: Metoprolol Succinate (Toprol Xl) 50 mg PO BID [facility] Last Admin: 03/12/20 12:43 Dose: 50 mg Documented by: Metronidazole (Flagyl) 500 mg PO Q8H [facility] Stop: 03/16/20 19:00 Ondansetron HCl (Zofran Inj) 4 mg IVP Q6HR PRN PRN Reason: Nausea / Vomiting Multivit/Folic Acid/Iron (Trinatal Rx 1) 1 tab PO DAILYWM [facility] Sodium Chloride (Normal Saline Flush 0.9%) 10 ml IVP PRN PRN PRN Reason: NEEDED PER PROVIDER ORDERS Last Admin: 03/11/20 20:33 Dose: 10 ml Documented by: Sodium Chloride (Normal Saline Flush 0.9%) 10 ml IVP 0100,0900,1700 [facility] Last Admin: 03/12/20 09:35 Dose: Not Given Documented by: Atorvastatin [Lovastatin] 20 mg PO HS 01/11/14 Clopidogrel [Plavix] 75 mg PO DAILY 01/11/14 Levothyroxine [Synthroid] 50 mcg PO QDAC 01/11/14 Metformin HCl 500 mg PO TIDWM 01/11/14 Potassium Chloride [Micro-K] 10 meq PO BIDWM 01/11/14 amLODIPine [Norvasc] 5 mg PO DAILY 01/11/14 hydroCHLOROthiazide [Hydrodiuril] 25 mg PO DAILY 01/11/14 lisinopriL [Zestril] 40 mg PO BID 01/11/14 Ascorbic Acid [Vitamin C] 500 mg PO BID 02/15/20 Aspirin 81 mg PO QDBREAKFAST 02/15/20 Famotidine 20 mg PO QDAC 02/15/20 Glipizide [Glipizide Xl] 2.5 mg PO QDAC 02/15/20 Multivit-Min/FA/Lycopen/Lutein [Centrum Silver Men Tablet] 1 each PO QDAC 02/15/20 Metoprolol Tartrate 100 mg PO BID 03/08/20 Cefdinir 300 mg PO [id number] 03/12/20 metroNIDAZOLE [Metronidazole] 500 mg PO [id number] 03/12/20
[2020-03-12] MEDS: lisinopriL 20 MG TABLET PO SCH ×2 (12:26→21:54)
[2020-03-12] MEDS: METOPROLOL SUCCINATE 50 MG TABLET PO SCH ×2 (12:43→21:54)
[2020-03-12] MEDS: CEFPODOXIME PROXETIL 100 MG TABLET PO SCH ×2 (13:59→21:54)
[2020-03-12] MEDS: metroNIDAZOLE 250 MG TABLET PO SCH (18:46)
[2020-03-12] MEDS ORDERED: ATORVASTATIN 10 MG TABLET PO SCH (21:00)
[2020-03-12] MEDS ORDERED: METOPROLOL SUCCINATE 50 MG TABLET PO SCH (21:00)
[2020-03-12] MEDS ORDERED: lisinopriL 20 MG TABLET PO SCH (21:00)
[2020-03-12] MEDS: ATORVASTATIN 40 MG TABLET PO SCH (21:54)
[2020-03-13] MEDS: SODIUM CHLORIDE FLUSH 0.9% 10 ML SYRINGE IVP SCH ×3 (01:37→18:41)
[2020-03-13] MEDS: metroNIDAZOLE 250 MG TABLET PO SCH ×3 (01:38→18:40)
[2020-03-13 05:47] LABS: BASOPHILS % (AUTO) 0.7 %; EOSINOPHILS # (AUTO) 0.1 10^3/uL (0.0-0.7); EOSINOPHILS % (AUTO) 1.7 %; HGB - HEMOGLOBIN 9.3 g/dL (12.0-16.0); MEAN CORPUSCULAR HEMOGLOBIN 27.8 pg (27.0-31.0); MEAN CORPUSCULAR HGB CONC 29.8 g/dL (32.0-36.0); MEAN CORPUSCULAR VOLUME 93.1 fL (81.0-99.0); MEAN PLATELET VOLUME 11.1 fL (7.9-10.8); MONOCYTES # (AUTO) 0.8 10^3/uL (0.0-1.0); MONOCYTES % (AUTO) 13.7 %; NEUTROPHILS % (AUTO) 66.4 %; PLT - PLATELET COUNT 267 10^3/uL (130-450); RED BLOOD COUNT 3.35 10^6/uL (4.20-5.40); RED CELL DISTRIBUTION WIDTH 16.9 % (12.0-15.0); WHITE BLOOD COUNT 6.1 x10^3/uL (4.8-10.8)
[2020-03-13 06:06] LABS: CALCIUM 8.5 mg/dL (8.5-10.3); CREATININE 0.7 mg/dL (0.4-1.0); MAGNESIUM 1.7 mg/dL (1.7-2.8); PHOSPHORUS 2.2 mg/dL (2.5-4.6)
[2020-03-13] MEDS: FAMOTIDINE 20 MG TABLET PO SCH (06:14)
[2020-03-13] MEDS: LEVOTHYROXINE 25 MCG TABLET PO SCH (06:14)
[2020-03-13] MEDS: ASPIRIN CHEW 81 MG TABLET PO SCH (07:56)
[2020-03-13] MEDS: PRENATAL VITAMIN TABLET PO SCH (07:56)
[2020-03-13] MEDS: INSULIN ASPART 300 UNIT/3 ML PEN SUBQ SCH ×4 (08:26→20:38)
[2020-03-13] MEDS ORDERED: POTASSIUM CHLORIDE 10 MEQ CAPSULE PO SCH (08:40)
[2020-03-13] MEDS: amLODIPine 5 MG TABLET PO SCH (09:20)
[2020-03-13] MEDS: POTASSIUM CHLOR 10 MEQ/100 ML 10 MEQ/100 ML BAG IV SCH ×4 (09:20→14:27)
[2020-03-13] MEDS: CEFPODOXIME PROXETIL 100 MG TABLET PO SCH ×2 (09:20→20:38)
[2020-03-13] MEDS: CLOPIDOGREL 75 MG TABLET PO SCH (09:20)
[2020-03-13] MEDS: lisinopriL 20 MG TABLET PO SCH ×2 (09:20→20:38)
[2020-03-13] MEDS: METOPROLOL SUCCINATE 50 MG TABLET PO SCH ×2 (09:20→20:39)
[2020-03-13] MEDS: MAGNESIUM OXIDE 400 MG TABLET PO SCH (09:20)
--- NOTE | 2020-03-13 10:31 | PROVIDER PROGRESS NOTE ---
Assessment/Plan - Problem List (1) Cerebrovascular accident (CVA) Qualifiers: CVA mechanism: occlusion Precerebral and cerebral artery: carotid artery Laterality of affected vessel: left Qualified Code(s): I63.232 - Cerebral infarction due to unspecified occlusion or stenosis of left carotid arteries Assessment/Plan: 03/13 Patient continue alert, smile and cooperate with PT/OT and ST, and im proved. Discussed the care plan with the patient at bedside, patient understand and agree patient could be discharged on tomorrow to [facility], patient will continue to have physical therapist, occupational therapist, and the speech therapist, will advise to have these therapy services at rehab. We will continue dysphagia diet, continue aspirin, continue Lipitor 03/12, Patient is alert and smile, seems the patient could understand we talk about the care plan when I meet patient's daughter at the bedside, but patient could not speak, she had a stroke. Patient had swallow evaluation By speech therapist, patient has dysphagia diet now. Discuss the care plan with the patient's daughter in the bedside. Patient's daughter agree patient can be discharged to the [facility] rehab for continue management of patient's stroke. pt has occluded distal left internal carotid artery. patient's daughter understand and agree patient is not candidate for the procedure for endovascular management because of her comorbidities. we consulted with [place] neurologist and their painter ordnance. Patient may follow-up with PCP and referral to neurologist and vascular surgeon continue evaluation and management as outpatient. 03/10 Patient is still aphasic, her right lower extremity is slightly better she can move slightly, but her right upper extremity still totally paralyzed. Speech therapist could not finish speech and swallowing evaluation in this morning because patient still is not enough alert to do the evaluation. speech therapist will come in this afternoon to re-evaluation again. patient MRI and echo are still pending. Continue aspirin by the DE, and intravenous metoprolol as needed. Continue intravenous of D5 IV fluids,Continue PT and OT evaluation and treatment, After the patient has MRI and echo, and speech therapist evaluation, we will discuss with the patient family for further plan. (2) Hypoxia Assessment/Plan: 619, result, patient has 95% sats on room air 618, stable 03/10, improved/resolved, patient has 98% sats on room air I suspect this is from hypoventilation due to her somnolence. Will obtain a chest x-ray. Start supplemental O2 to keep sats greater than 90%. (3) Carotid artery occlusion 03/12, Discussed the care plan as the above with the patient's daughter in the bedside. pt has occluded distal left internal carotid artery. patient's daughter understand and agree patient is not candidate for the procedure for endovascular management because of her comorbidities. we consulted with [place] neurologist and their painter ordnance. Patient may follow-up with PCP and referral to neurologist and vascular surgeon continue evaluation and management as outpatient. 03/10 Patient was not offered procedure for endovascular management in the admission because of her comorbidities, patient's the family understood and agreed the plan. We will continue treated with aspirin, Plavix, statin after the patient had swallow evaluation (4) Atrial fibrillation Assessment/Plan: 03/12 Stable, will resume home metoprolol, resume home aspirin and Plavix, c ontinue telemetry and vital signs monitor Heart rate is controlled, agree to Continue with IV management, No anticoagulation was being used because of her recent surgery and repeat surgery, Currently anticoagulation not started because of risk of hemorrhagic transformation of the stroke in the first several days. (5) Diabetes Assessment/Plan: 03/12, patient had A1c 6.8, patient have dysphagia diet, will continue sliding scale and ACHS to monitor glucose and continue hypoglycemia protocol Because the patient is a NPO now, continue D5 intravenous, we will continue sliding scale insulin. Her A1c returned at 6.8 indicating good control (at age 84). (6) Hypomagnesemia Assessment/Plan: 03-12, stable Replace with Mag iv riders Follow BMP and Mg daily. (7) Anemia Assessment/Plan: 03/12, stable At admission yesterday her hemoglobin was low, presumably due to the recent hosp italization in [place] for sepsis and having several surgeries. Follow CBC daily (8) History of recent acute infection Assessment/Plan: 03/04/2017, we will continue home meds until March 16 She is getting about 5 more days of antibiotics for the sepsis that she had when hospitalized at [facility] in [place]. She is on IV forms of Flagyl and a cephalosporin, Ceftriaxone. (9) Hypokalemia 03/13, potassium is 2.8 on today, will replace for potassium, continue BMP to check Resolved (10) Hyponatremia Resolved - Current Meds Current Meds: Current Medications Generic Name Dose Route Start Last Admin Trade Name Robbin PRN Reason Stop Dose Admin Amlodipine Besylate 5 mg 03/13/20 09:00 03/13/20 09:20 Norvasc PO 5 mg DAILY JEFFREY Administration Aspirin 81 mg 03/13/20 08:00 03/13/20 07:56 [facility] [place] Aspirin PO 81 mg QDBREAKFAST JEFFREY Administration Atorvastatin Calcium 40 mg 03/12/20 21:00 03/12/20 21:54 Lipitor PO 40 mg QPM JEFFREY Administration Cefuroxime Axetil 100 mg 03/12/20 13:00 03/13/20 09:20 Vantin PO 03/16/20 22:00 100 mg BID JEFFREY Administration Clopidogrel Bisulfate 75 mg 03/12/20 12:00 03/13/20 09:20 Plavix PO 75 mg DAILY JEFFREY Administration Famotidine 20 mg 03/13/20 07:00 03/13/20 06:14 Pepcid PO 20 mg QDAC JEFFREY Administration Potassium Chloride 10 meq in 100 mls @ 100 mls/hr 03/13/20 09:00 03/13/20 09:20 Potassium Chloride IV 03/13/20 12:59 100 mls/hr Q1H JEFFREY Administration Insulin Aspart 1 - 5 unit 03/12/20 12:00 03/13/20 08:26 Novolog SUBQ 2 unit 0800,1200,1700,2100 JEFFREY Administration Protocol Levothyroxine Sodium 50 mcg 03/13/20 07:00 03/13/20 06:14 Synthroid PO 50 mcg QDAC JEFFREY Administration Lisinopril 20 mg 03/12/20 11:53 03/13/20 09:20 Zestril PO 20 mg BID JEFFREY Administration Magnesium Oxide 400 mg 03/13/20 09:00 03/13/20 09:20 Mag Ox PO 400 mg DAILYWM JEFFREY Administration Metoprolol Succinate 50 mg 03/12/20 12:30 03/13/20 09:20 Toprol Xl PO 50 mg BID JEFFREY Administration Metronidazole 500 mg 03/12/20 18:00 03/13/20 01:38 Flagyl PO 03/16/20 19:00 500 mg Q8H JEFFREY Administration Multivit/Folic Acid/Iron 1 tab 03/13/20 08:00 03/13/20 07:56 Trinatal Rx 1 PO 1 tab DAILYWM JEFFREY Administration Sodium Chloride 10 ml 03/08/20 14:13 03/11/20 20:33 Normal Saline Flush 0.9% IVP 10 ml PRN PRN Administration NEEDED PER PROVIDER ORDERS Sodium Chloride 10 ml 03/08/20 17:00 03/13/20 01:37 Normal Saline Flush 0.9% IVP Not Given 0100,0900,1700 JEFFREY - Lab Result Fish Bone Diagrams: 03/13/20 05:05 03/13/20 05:05 - Additional Planning My Orders: My Active Orders 03/12/20 11:53 lisinopriL [Zestril] 20 mg PO BID 03/12/20 12:30 Metoprolol Succinate [Toprol Xl] 50 mg PO BID 03/12/20 13:00 Cefpodoxime Proxetil [Vantin] 100 mg PO BID 03/12/20 18:00 metroNIDAZOLE [Flagyl] 500 mg PO Q8H 03/12/20 21:00 Atorvastatin [Lipitor] 40 mg PO QPM 03/13/20 09:00 Magnesium Oxide [Mag Ox] 400 mg PO DAILYWM Potassium Chlor 10 Meq/100 ml [Potassium Chloride] 10 meq in 100 ml IV Q1H amLODIPine [Norvasc] 5 mg PO DAILY 03/13/20 12:00 Neutra-Phos [K-Phos Neutral] 250 mg PO TIDWM 03/14/20 05:00 BMP - BASIC METABOLIC PANEL [CHEM] DAILYLAB CBC - COMP BLD CT W/AUTO DIFF [HEME] DAILYLAB MAGNESIUM [CHEM] DAILYLAB PHOSPHORUS [CHEM] DAILYLAB 03/15/20 05:00 BMP - BASIC METABOLIC PANEL [CHEM] DAILYLAB CBC - COMP BLD CT W/AUTO DIFF [HEME] DAILYLAB 03/16/20 05:00 BMP - BASIC METABOLIC PANEL [CHEM] DAILYLAB CBC - COMP BLD CT W/AUTO DIFF [HEME] DAILYLAB 03/17/20 05:00 BMP - BASIC METABOLIC PANEL [CHEM] DAILYLAB CBC - COMP BLD CT W/AUTO DIFF [HEME] DAILYLAB Subjective - Subjective Nursing Reports: No Complaints Objective Vital Signs: Vital Signs - 24 hr 03/12/20 03/12/20 03/12/20 11:24 15:37 20:06 Temperature 36.8 C 36.9 C 36.5 C Heart Rate [ 100 83 87 Brachial] Heart Rate [ Monitoring electrodes] Respiratory 20 16 24 Rate Blood Pressure [Left Brachial artery] Blood Pressure 162/77 H 164/97 H 145/84 H [Right Brachial artery] O2 Saturation 95 96 98 03/13/20 03/13/20 03/13/20 01:00 05:00 08:40 Temperature 36.7 C 36.6 C 36.5 C Heart Rate [ 65 80 Brachial] Heart Rate [ 69 Monitoring electrodes] Respiratory 20 20 18 Rate Blood Pressure 153/80 H 146/82 H [Left Brachial artery] Blood Pressure 162/83 H [Right Brachial artery] O2 Saturation 96 93 95 Oxygen O2 Source Room air I&O (Last 24 Hrs): Intake and Output Totals x24h 03/11/20 03/12/20 03/13/20 23:59 23:59 23:59 Intake Total 885 1955 Output Total 1875 1300 600 Balance -990 655 -600 General: Alert, No acute distress HEENT: Atraumatic Neck: Supple Lymphatic: no adenopathy Neuro: Alert, Focal Deficits Cardiovascular: Normal S1, Normal S2 Respiratory: Chest non-tender, No respiratory distress, Breath sounds nml Abdomen: Normal bowel sounds, Soft, No tenderness Extremities: Normal pulses Comments/Notes: pt is aphasia, could not answer questions - Results Results: Laboratory Results WBC 6.1 x10^3/uL (4.8-10.8) 03/13/20 05:05 RBC 3.35 10^6/uL (4.20-5.40) L 03/13/20 05:05 Hgb 9.3 g/dL (12.0-16.0) L 03/13/20 05:05 Hct 31.2 % (37.0-47.0) L 03/13/20 05:05 MCV 93.1 fL (81.0-99.0) 03/13/20 05:05 MCH 27.8 pg (27.0-31.0) 03/13/20 05:05 MCHC 29.8 g/dL (32.0-36.0) L 03/13/20 05:05 RDW 16.9 % (12.0-15.0) H 03/13/20 05:05 Plt Count 267 10^3/uL (130-450) 03/13/20 05:05 MPV 11.1 fL (7.9-10.8) H 03/13/20 05:05 Neut # (Auto) 4.0 10^3/uL (1.5-6.6) 03/13/20 05:05 Lymph # (Auto) 1.0 10^3/uL (1.5-3.5) L 03/13/20 05:05 Barton # (Auto) 0.8 10^3/uL (0.0-1.0) 03/13/20 05:05 Eos # (Auto) 0.1 10^3/uL (0.0-0.7) 03/13/20 05:05 Baso # (Auto) 0.0 10^3/uL (0.0-0.1) 03/13/20 05:05 Absolute Nucleated RBC 0.00 x10^3/uL 03/13/20 05:05 Nucleated RBC % 0.0 /100WBC 03/13/20 05:05 ESR 29 mm/Hr (0-30) 03/08/20 12:00 PT 14.4 secs (9.9-12.6) H 03/08/20 12:00 INR 1.3 (0.8-1.2) H 03/08/20 12:00 APTT 33.1 secs (24.9-33.3) 03/08/20 12:00 Sodium 134 mmol/L (135-145) L 03/13/20 05:05 Potassium 2.8 mmol/L (3.5-5.0) L 03/13/20 05:05 Chloride 102 mmol/L (101-111) 03/13/20 05:05 Carbon Dioxide 24 mmol/L (21-32) 03/13/20 05:05 Anion Gap 8.0 (6-13) 03/13/20 05:05 BUN 6 mg/dL (6-20) 03/13/20 05:05 Creatinine 0.7 mg/dL (0.4-1.0) 03/13/20 05:05 Estimated GFR (MDRD) 79 (>89) L 03/13/20 05:05 Glucose 199 mg/dL (70-100) H 03/13/20 05:05 POC Whole Bld Glucose 205 mg/dL (70 - 100) H 03/12/20 16:46 Glycated Hemoglobin 6.8 % (4.6-6.2) H 03/09/20 05:24 Estim Average Glucose 148 (70-100) H 03/09/20 05:24 Calcium 8.5 mg/dL (8.5-10.3) 03/13/20 05:05 Phosphorus 2.2 mg/dL (2.5-4.6) L 03/13/20 05:05 Magnesium 1.7 mg/dL (1.7-2.8) 03/13/20 05:05 Iron 8 ug/dL (28-170) L 03/09/20 05:24 TIBC 343 ug/dL (250-450) 03/09/20 05:24 % Saturation 2 % (20-50) L 03/09/20 05:24 Transferrin 245 mg/dL (192-382) 03/09/20 05:24 Total Bilirubin 1.4 mg/dL (0.2-1.0) H 03/08/20 12:00 AST 15 IU/L (10-42) 03/08/20 12:00 ALT 16 IU/L (10-60) 03/08/20 12:00 Alkaline Phosphatase 131 IU/L (42-121) H 03/08/20 12:00 Troponin I High Sens 7.1 ng/L (2.3-14.8) 03/08/20 12:00 Total Protein 5.5 g/dL (6.7-8.2) L 03/08/20 12:00 Albumin 2.9 g/dL (3.2-5.5) L 03/08/20 12:00 Globulin 2.6 g/dL (2.1-4.2) 03/08/20 12:00 Albumin/Globulin Ratio 1.1 (1.0-2.2) 03/08/20 12:00 Triglycerides 72 mg/dL (-149) 03/09/20 05:24 Cholesterol 88 mg/dL (-199) 03/09/20 05:24 LDL Cholesterol, Calc 28 mg/dL (-129) 03/09/20 05:24 VLDL Cholesterol 14 mg/dL 03/09/20 05:24 HDL Cholesterol 46 mg/dL (60-) L 03/09/20 05:24 LDL/HDL Ratio 0.6 (<4.4) 03/09/20 05:24 Cholesterol/HDL Ratio 1.9 (<4.4) 03/09/20 05:24 Lipase 37 U/L (22-51) 03/08/20 12:00 Vitamin B12 501 pg/mL (180-914) 03/09/20 05:24 Folate 25.00 ng/mL (5.90 - >24.8) 03/09/20 05:24 TSH 2.10 uIU/mL (0.34-5.60) 03/09/20 05:24 Coronavirus (PCR) NEGATIVE 03/10/20 10:30 Sepsis Event Note (H) - Evaluation Current Stage of Sepsis: Ruled out ABX Reporting Has patient been on IV antibiotics over the past 48 hours?: No Current Medications - Current Medications Current Medications: Active Medications Acetaminophen (Tylenol) 650 mg PO Q4HR PRN PRN Reason: Pain or Fever > 38C (100.4F) Amlodipine Besylate (Norvasc) 5 mg PO DAILY [facility] Last Admin: 03/13/20 09:20 Dose: 5 mg Documented by: Aspirin ([facility] [place] Aspirin) 81 mg PO QDBREAKFAST [facility] Last Admin: 03/13/20 07:56 Dose: 81 mg Documented by: Atorvastatin Calcium (Lipitor) 40 mg PO QPM [facility] Last Admin: 03/12/20 21:54 Dose: 40 mg Documented by: Cefuroxime Axetil (Vantin) 100 mg PO BID [facility] Stop: 03/16/20 22:00 Last Admin: 03/13/20 09:20 Dose: 100 mg Documented by: Clopidogrel Bisulfate (Plavix) 75 mg PO DAILY [facility] Last Admin: 03/13/20 09:20 Dose: 75 mg Documented by: Famotidine (Pepcid) 20 mg PO QDAC [facility] Last Admin: 03/13/20 06:14 Dose: 20 mg Documented by: Potassium Chloride (Potassium Chloride) 10 meq in 100 mls @ 100 mls/hr IV Q1H [facility] Stop: 03/13/20 12:59 Last Admin: 03/13/20 09:20 Dose: 100 mls/hr Documented by: Insulin Aspart (Novolog) 1 - 5 unit SUBQ 0800,1200,1700,2100 [facility]; Protocol Last Admin: 03/13/20 08:26 Dose: 2 unit Documented by: Levothyroxine Sodium (Synthroid) 50 mcg PO QDAC [facility] Last Admin: 03/13/20 06:14 Dose: 50 mcg Documented by: Lisinopril (Zestril) 20 mg PO BID [facility] Last Admin: 03/13/20 09:20 Dose: 20 mg Documented by: Magnesium Oxide (Mag Ox) 400 mg PO DAILYWM [facility] Last Admin: 03/13/20 09:20 Dose: 400 mg Documented by: Metoprolol Succinate (Toprol Xl) 50 mg PO BID [facility] Last Admin: 03/13/20 09:20 Dose: 50 mg Documented by: Metronidazole (Flagyl) 500 mg PO Q8H [facility] Stop: 03/16/20 19:00 Last Admin: 03/13/20 10:29 Dose: 500 mg Documented by: Ondansetron HCl (Zofran Inj) 4 mg IVP Q6HR PRN PRN Reason: Nausea / Vomiting Multivit/Folic Acid/Iron (Trinatal Rx 1) 1 tab PO DAILYWM [facility] Last Admin: 03/13/20 07:56 Dose: 1 tab Documented by: Sodium Chloride (Normal Saline Flush 0.9%) 10 ml IVP PRN PRN PRN Reason: NEEDED PER PROVIDER ORDERS Last Admin: 03/11/20 20:33 Dose: 10 ml Documented by: Sodium Chloride (Normal Saline Flush 0.9%) 10 ml IVP 0100,0900,1700 [facility] Last Admin: 03/13/20 01:37 Dose: Not Given Documented by: Sodium Phosphate (K-Phos Neutral) 250 mg PO TIDWM [facility] Atorvastatin [Lovastatin] 20 mg PO HS 01/11/14 Clopidogrel [Plavix] 75 mg PO DAILY 01/11/14 Levothyroxine [Synthroid] 50 mcg PO QDAC 01/11/14 Metformin HCl 500 mg PO TIDWM 01/11/14 Potassium Chloride [Micro-K] 10 meq PO BIDWM 01/11/14 amLODIPine [Norvasc] 5 mg PO DAILY 01/11/14 hydroCHLOROthiazide [Hydrodiuril] 25 mg PO DAILY 01/11/14 lisinopriL [Zestril] 40 mg PO BID 01/11/14 Ascorbic Acid [Vitamin C] 500 mg PO BID 02/15/20 Aspirin 81 mg PO QDBREAKFAST 02/15/20 Famotidine 20 mg PO QDAC 02/15/20 Glipizide [Glipizide Xl] 2.5 mg PO QDAC 02/15/20 Multivit-Min/FA/Lycopen/Lutein [Centrum Silver Men Tablet] 1 each PO QDAC 02/15/20 Metoprolol Tartrate 100 mg PO BID 03/08/20 Cefdinir 300 mg PO [id number] 03/12/20 metroNIDAZOLE [Metronidazole] 500 mg PO [id number] 03/12/20
[2020-03-13] MEDS: NEUTRA-PHOS 250 MG TABLET PO SCH ×2 (12:16→18:41)
[2020-03-13] MEDS: ATORVASTATIN 40 MG TABLET PO SCH (20:38)
[2020-03-14] MEDS: metroNIDAZOLE 250 MG TABLET PO SCH ×2 (02:06→10:16)
[2020-03-14] MEDS: SODIUM CHLORIDE FLUSH 0.9% 10 ML SYRINGE IVP SCH (02:13)
[2020-03-14] MEDS: SODIUM CHLORIDE FLUSH 0.9% 10 ML SYRINGE IVP PRN (02:14)
[2020-03-14 06:09] LABS: BASOPHILS # (AUTO) 0.1 10^3/uL (0.0-0.1); BASOPHILS % (AUTO) 0.8 %; HGB - HEMOGLOBIN 9.9 g/dL (12.0-16.0); LYMPHOCYTES # (AUTO) 1.1 10^3/uL (1.5-3.5); LYMPHOCYTES % (AUTO) 13.3 %; MEAN CORPUSCULAR HEMOGLOBIN 28.9 pg (27.0-31.0); MEAN CORPUSCULAR HGB CONC 30.7 g/dL (32.0-36.0); MEAN CORPUSCULAR VOLUME 93.9 fL (81.0-99.0); MONOCYTES # (AUTO) 0.9 10^3/uL (0.0-1.0); MONOCYTES % (AUTO) 11.5 %; NEUTROPHILS # (AUTO) 4.9 10^3/uL (1.5-6.6); NEUTROPHILS % (AUTO) 61.9 %; PLT - PLATELET COUNT 272 10^3/uL (130-450); RED BLOOD COUNT 3.43 10^6/uL (4.20-5.40); WHITE BLOOD COUNT 7.9 x10^3/uL (4.8-10.8)
[2020-03-14 06:28] LABS: CALCIUM 8.8 mg/dL (8.5-10.3); CREATININE 0.6 mg/dL (0.4-1.0); MAGNESIUM 1.7 mg/dL (1.7-2.8); PHOSPHORUS 2.9 mg/dL (2.5-4.6)
[2020-03-14] MEDS: LEVOTHYROXINE 25 MCG TABLET PO SCH (07:04)
[2020-03-14] MEDS: FAMOTIDINE 20 MG TABLET PO SCH (07:04)
[2020-03-14] MEDS: NEUTRA-PHOS 250 MG TABLET PO SCH ×2 (08:09→12:26)
[2020-03-14] MEDS: INSULIN ASPART 300 UNIT/3 ML PEN SUBQ SCH ×2 (08:10→12:27)
[2020-03-14] MEDS: ASPIRIN CHEW 81 MG TABLET PO SCH (08:10)
[2020-03-14] MEDS: MAGNESIUM OXIDE 400 MG TABLET PO SCH (08:10)
[2020-03-14] MEDS: PRENATAL VITAMIN TABLET PO SCH (08:12)
[2020-03-14] MEDS: CEFPODOXIME PROXETIL 100 MG TABLET PO SCH (08:55)
[2020-03-14] MEDS: CLOPIDOGREL 75 MG TABLET PO SCH (08:55)
[2020-03-14] MEDS: METOPROLOL SUCCINATE 50 MG TABLET PO SCH (08:55)
[2020-03-14] MEDS: lisinopriL 20 MG TABLET PO SCH (08:55)
[2020-03-14] MEDS: amLODIPine 5 MG TABLET PO SCH (08:56)
--- NOTE | 2020-03-14 10:32 | Discharge Plan ---
"Discharge Plan for SNF / [facility] - Discharge Plan And Transition Orders Problem Reviewed?: Yes Disposition: 03 SNF DC/Xfer Condition: Poor Allergies and Adverse Reactions: Allergies Allergy/AdvReac Type Severity Reaction Status Date / Time No Known Drug Allergies Allergy Verified 03/08/20 12:10 Health Concerns: stroke and left carotid occlusion Plan of Treatment: pt may continue to have PT/OT/ST to evaluate and treat her. pt was consulted with neurologist, and neurologist talked with their continuous linter drier operator in [place] for her left carotid occlusion. pt was not a endovascular candidate in the admission. pt may followup with neurologist for her stroke and vascular surgeon for further management of her left carotid occlusion as out-pt. pt still has two days antibiotics left for her sepsis from her cholecystitis and cholecystectomy in the last admission at [facility]. Care Goals: stabilization and improvement of her medical conditions. Assessment: discussed with pt's daughter and pt's for the care plan, they understood and agreed. - SNF / [facility] Transition Orders Admit to (Facility): [facility] Under the care of (Name): Shanu Olivera Discharge Diagnosis: stroke, left carotid artery occlusion, afib, diabetes, anemia, hx of recent acute infection, hypokalemia, hyponatremia, hypomagnesemia Medicare Certification Statement: I certify that [facility] care is medically necessary on a continuing basis for any of the conditions for which she/he is receiving care during hospitalization. Notify PCP of admission and forward orders to primary provider for signature. Weight on admission and: Daily Call PCP immediately if weight increases by: 2 kg Other Notification Orders: Call PCP immediately if patient develops dyspnea, chest pain/tightness or edema. House Bowel Program: Yes Additional Bowel Program Orders: If no BM after 2 days, nurse may give M.O.M. 30ml PO PRN and/or ducolax Supp 1 NH and/or ALON 250mg P.O., and/or senna 1-2 tabs PO. On day 3 nurse may give repeat above order until residents constipation is resolved. Annual Influenza Vaccine (between May 26 and December 23): Yes Two-step PPD per [facility] [id number] or approved exception documents: Yes Treatments & Other Orders: pt may followup with Shaun Olivera when she is arrival to [facility]. pt may continue to have PT/OT/ST to evaluate and treat her. pt was consulted with neurologist, and neurologist talked with their continuous linter drier operator in [place] for her left carotid occlusion. pt was not a endovascular candidate in the admission. pt may followup with neurologist for her stroke and vascular surgeon for further management of her left carotid occlusion as out-pt. pt still has two days antibiotics left for her sepsis from her cholecystitis and cholecystectomy in the last admission at [facility]. Medication Orders: PLEASE REFER TO THE DISCHARGE MEDICATION LIST. Insulin Orders?: No - Medications New Prescriptions: Atorvastatin [Lipitor] 40 mg PO QPM #10 tablet Metoprolol Succinate [Toprol Xl] 50 mg PO BID #20 tablet Lisinopril [Zestril] 20 mg PO BID #20 tablet - Diet Texture: Dysphagia mech Liquids: Honey thick May have monthly special meal: Yes - Therapies | Activity Therapy: Evaluation | Treat if indicated: Speech, PT, OT, Swallowing / ST Rehabilitation Potential: Maximize functional status Activity: Activity as Tolerated"
--- NOTE | 2020-03-14 11:18 | DISCHARGE SUMMARY ---
Discharge Summary Admit Date: 03/08/20 Discharge Date: 03/14/20 Discharging Provider: Lonnie Domínguez Primary Care Provider: Dr. Gary james Condition at Discharge: Poor Discharge Disposition: 03 SNF DC/Xfer Discharge Facility Name: [facility] Admission Diagnoses: (1) Cerebrovascular accident (CVA) (2) Hypoxia (3) Carotid artery occlusion (4) Atrial fibrillation (5) Diabetes (6) Hypomagnesemia (7) Anemia (8) History of recent acute infection (9) Hypokalemia (10) Hyponatremia Discharge Diagnoses with Status of Each Condition: (1) Cerebrovascular accident (CVA) MRI of the brain show acute MCA stroke. Patient was not a TPA candidate and not candidate for endovascular procedure for patient's left carotid occlusion when patient was in the admission By Vietnamese neurologist assessment. Patient had speech therapist, physical therapist and occupational therapist evaluation and treatment. Patient was recommended to halfway facility, patient was accepted by [facility] rehab. Patient has aspirin, Plavix, Lipitor. Advised the patient follow-up with neurologist, continue speech therapist, physical therapist, and occupational therapist and rehab. pt is alert and continue smile, pt ate 50% of her breakfast today. (2) Hypoxia Resolved as her baseline, patient had 93 to 94% sats on room air, patient has no respiratory distress, no cough. (3) Carotid artery occlusion Patient has left carotid occlusion. Patient was consulted with neurologist in Vietnamese, neurologist talked with building tech in the Vietnamese, patient was not a candidate for endovascular procedure, This was discussed with pt's daughter and she agreed the care plan then pt was admitted in [facility] when patient was in the admission. Advised patient's daughter follow-up with vascular surgeon for further management as outpatient. (4) Atrial fibrillation Stable,Heart rate is controlled, continue metoprolol, aspirin and Plavix. Patient was not a candidate for anticoagulation right now because he just have major stroke, and risk for brain Hemorrhagic. Advised the patient's daughter follow-up with her PCP, neurologist and her business project manager for further management (5)Diastolic heart failure Patient has preserved EF with diastolic heart failure. patient has no respirations distress, no lower extremity edema, patient has a sats 93 or 94% on room air at her baseline, patient has medication metoprolol, lisinopril, and HCTZ to manage this medical disease.vAdvised the patient's daughter follow-up with her PCP, Rehab provider and her business project manager for further management (6) Diabetes Patient has A1c 6.8, resume patient home diabetic medications (7) Hypomagnesemia Resolved (8) Anemia chronic and stable (9) History of recent acute infection Patient has 2 more days of antibiotics for his previous infection from her sepsis at [facility].Discussed the plan with the patient's daughter (10) Hypokalemia Resolved (11) Hyponatremia Resolved - HPI History of Present Illness: This was 84 years old female, she was discharged 6 days ago from [facility] for her sepsis and cholecystectomy.Patient was admitted for her suddenly right side of weakness and right facial droop. In the ER, patient was consulted with neurologist in Vietnamese, per Vietnamese neurologist her Dr. Harris, patient was not a candidate for TPA. Patient was found to have left carotid occlusion, neurologist in Vietnamese talking with the building tech they believed the patient was not a candidate for endovascular procedure. The decision was discussed with the patient's daughter, then patient's daughter agreed patient was admitted in [facility] for medical management without TPN and endovascular procedure. - HOSPITAL COURSE Hospital Course: Patient was admitted for stroke. patient was found to have right-sided weakness, and right sided facial droop and aphasia. MRI of the brain show patient has left MCA territory Infarction. CTA of the neck and head show patient has left carotid occlusion, ER provider consulted with Vietnamese neurologist and intervention, they believe patient was not a candidate a for TPA and endovascular procedure. The decision was notified and discussed with the patient's daughter, patient's daughter agreed the plan, patient was admitted in the hospital for medical management. Patient also develop hypersomnolence. Repeated CAT scan of the brain did not show Intracranial middle shift. patient developed more alert and can participate speech therapist assessment. Patient tolerated dysphagia diet. Patient had physical therapist, occupational therapist's evaluation and tr eatment. Patient was recommended to be discharged to rehab half-way facility - ALLERGIES Allergies/Adverse Reactions: Allergies Allergy/AdvReac Type Severity Reaction Status Date / Time No Known Drug Allergies Allergy Verified 03/08/20 12:10 - MEDICATIONS Home Medications: Ambulatory Orders Medication Instructions Recorded Confirmed Clopidogrel [Plavix] 75 mg PO DAILY 01/11/14 03/08/20 Levothyroxine [Synthroid] 50 mcg PO QDAC 01/11/14 03/08/20 Metformin HCl 500 mg PO TIDWM 01/11/14 03/12/20 Potassium Chloride [Micro-K] 10 meq PO BIDWM 01/11/14 03/08/20 amLODIPine [Norvasc] 5 mg PO DAILY 01/11/14 03/08/20 hydroCHLOROthiazide [Hydrodiuril] 25 mg PO DAILY 01/11/14 03/08/20 Ascorbic Acid [Vitamin C] 500 mg PO BID 02/15/20 03/08/20 Aspirin 81 mg PO QDBREAKFAST 02/15/20 03/08/20 Famotidine 20 mg PO QDAC 02/15/20 03/08/20 Glipizide [Glipizide Xl] 2.5 mg PO QDAC 02/15/20 03/08/20 Multivit-Min/FA/Lycopen/Lutein 1 each PO QDAC 02/15/20 03/08/20 [Centrum Silver Men Tablet] Cefdinir 300 mg PO [id number] 03/12/20 03/12/20 metroNIDAZOLE [Metronidazole] 500 mg PO [id number] 03/12/20 03/12/20 Atorvastatin [Lipitor] 40 mg PO QPM #10 tablet 03/14/20 Lisinopril [Zestril] 20 mg PO BID #20 tablet 03/14/20 Metoprolol Succinate [Toprol Xl] 50 mg PO BID #20 tablet 03/14/20 - PHYSICAL EXAM AT DISCHARGE General Appearance: positive: No acute distress, Alert. negative: Lethargic Eyes Bilateral: positive: Normal inspection, PERRL, No lid inflammation ENT: positive: ENT inspection nml, Pharynx nml, No signs of dehydration. negative: Purulent nasal drainage Neck: positive: Nml inspection, Thyroid nml, No JVD, Trachea midline. negative: Thyromegaly, Stiff neck, Tracheal deviation Respiratory: positive: Chest non-tender, No respiratory distress, Breath sounds nml. negative: Wheezes, Rales, Rhonchi Cardiovascular: positive: No murmur, No gallop, Irregularly irregular. negative: Tachycardia, Bradycardia, Systolic murmur, Diastolic murmur Peripheral Pulses: positive: 2+ Abdomen: positive: Non-tender, No organomegaly, Nml bowel sounds, No distention. negative: Tenderness, Guarding, Rebound Back: positive: Nml inspection Skin: positive: Color nml, No rash, Warm, Dry. negative: Cyanosis, Diaphoresis, Pallor Extremities: positive: Non-tender, Nml appearance, No pedal edema. negative: Full ROM, Pedal edema, Calf tenderness, Vinnie's sign/cords Neurologic/Psychiatric: positive: Weakness, Sensory loss, Facial droop - LABS Result Diagrams: 03/14/20 05:35 03/14/20 05:35 - SEPSIS Current Stage of Sepsis: Ruled out - FOLLOW UP Follow Up: pt may followup with Shaun Olivera when she is arrival to [facility]. pt may continue to have PT/OT/ST to evaluate and treat her. pt was consulted with neurologist, and neurologist talked with their building tech in Vietnamese for her left carotid occlusion. pt was not a endovascular candidate in the admission. pt may followup with neurologist for her stroke and vascular surgeon for further management of her left carotid occlusion as out-pt. pt still has two days antibiotics left for her sepsis from her cholecystitis and cholecystectomy in the last admission at [facility]. - TIME SPENT Time Spent in Discharge (Minutes): 30
[2020-03-14 13:03] VITALS: BP 150/70
== END 2020-03-14 13:45 | DRG 64 ==
LOC: EDUNIT# → ED 11:34 → MS2 14:13 → OBSVTOIN 03-09 11:20
PROVIDERS: ADMIT Internal Medicine; ATTEND Nurse Practitioner Gerontology
DX: I63.232 Cerebral infarction due to unspecified occlusion or stenosis of left carotid arteries (principal); I63.512 Cerebral infarction due to unspecified occlusion or stenosis of left middle cerebral artery; H53.8 Other visual disturbances; A41.9 Sepsis, unspecified organism; I10 Essential (primary) hypertension; G81.91 Hemiplegia, unspecified affecting right dominant side; I50.30 Unspecified diastolic (congestive) heart failure; E87.1 Hypo-osmolality and hyponatremia; H53.9 Unspecified visual disturbance; R09.89 Other specified symptoms and signs involving the circulatory and respiratory systems; R47.01 Aphasia; R40.0 Somnolence; E83.42 Hypomagnesemia; I48.91 Unspecified atrial fibrillation; I11.0 Hypertensive heart disease with heart failure; E11.9 Type 2 diabetes mellitus without complications; D64.9 Anemia, unspecified; E87.6 Hypokalemia; F03.90 Unspecified dementia, unspecified severity, without behavioral disturbance, psychotic disturbance, mood disturbance, and anxiety; E03.9 Hypothyroidism, unspecified; R29.717 NIHSS score 17; Z79.84 Long term (current) use of oral hypoglycemic drugs; Z79.02 Long term (current) use of antithrombotics/antiplatelets; Z79.82 Long term (current) use of aspirin; Z90.49 Acquired absence of other specified parts of digestive tract; Z11.59 Encounter for screening for other viral diseases
CPT/HCPCS: 36415; 70450; 70496; 70498; 70551; 71045; 80048; 80053; 80061; 82607; 82746; 83036; 83540; 83690; 83735; 84100; 84443; 84466; 84484; 85025; 85610; 85651; 85730; 92526; 92610; 93005; 93306; 96361; 96365; 96366; 96367; 96368; 96375; 97110; 97162; 97166; 97530; 99285; A9270; G0378; J1815; J7040; Q9967; U0004; 81599; 83721

== ENCOUNTER 2020-03-14 13:48 | Outpatient (CLI) | payer MEDICARE, OTHER | END 2020-03-14 13:49 | LOC: EMS 13:48 | PROVIDERS: ATTEND Surgery | DX: R53.1 Weakness (principal); I63.9 Cerebral infarction, unspecified | CPT/HCPCS: A0425; A0429 ==

== ENCOUNTER 2020-03-16 05:00 | Outpatient (CLI) | payer MEDICARE, OTHER ==
[2020-03-16 06:48] LABS: BASOPHILS # (AUTO) 0.1 10^3/uL (0.0-0.1); BASOPHILS % (AUTO) 0.8 %; EOSINOPHILS # (AUTO) 0.1 10^3/uL (0.0-0.7); EOSINOPHILS % (AUTO) 0.8 %; HGB - HEMOGLOBIN 9.8 g/dL (12.0-16.0); LYMPHOCYTES # (AUTO) 1.6 10^3/uL (1.5-3.5); MEAN CORPUSCULAR HEMOGLOBIN 28.7 pg (27.0-31.0); MEAN CORPUSCULAR VOLUME 95.6 fL (81.0-99.0); MONOCYTES % (AUTO) 10.8 %; NEUTROPHILS # (AUTO) 6.3 10^3/uL (1.5-6.6); NEUTROPHILS % (AUTO) 68.9 %; PLT - PLATELET COUNT 242 10^3/uL (130-450); RED BLOOD COUNT 3.42 10^6/uL (4.20-5.40); RED CELL DISTRIBUTION WIDTH 17.1 % (12.0-15.0); WHITE BLOOD COUNT 9.1 x10^3/uL (4.8-10.8)
[2020-03-16 07:03] LABS: ALBUMIN 2.7 g/dL (3.2-5.5); ALKALINE PHOSPHATASE 93 IU/L (42-121); ALT ALANINE AMINOTRANSFERASE 17 IU/L (10-60); AST ASPARTATE AMINOTRANSFERASE 22 IU/L (10-42); BILIRUBIN,TOTAL 1.3 mg/dL (0.2-1.0); BUN - BLOOD UREA NITROGEN < 5 mg/dL (6-20); CALCIUM 8.8 mg/dL (8.5-10.3); CARBON DIOXIDE - CO2 21 mmol/L (21-32); CHLORIDE 104 mmol/L (101-111); CREATININE 0.7 mg/dL (0.4-1.0); GLUCOSE 150 mg/dL (70-100); SODIUM 135 mmol/L (135-145); TOTAL PROTEIN 5.5 g/dL (6.7-8.2)
== END 2020-03-16 23:59 | disposition home or self-care (01) ==
LOC: LAB.R 05:00
PROVIDERS: ATTEND Family Medicine
DX: I10 Essential (primary) hypertension (principal); R70.0 Elevated erythrocyte sedimentation rate; I63.232 Cerebral infarction due to unspecified occlusion or stenosis of left carotid arteries; T81.44XD Sepsis following a procedure, subsequent encounter; D64.9 Anemia, unspecified
CPT/HCPCS: 80053; 85025; 85651

== ENCOUNTER 2020-04-02 03:15 | Outpatient (CLI) | payer MEDICARE, OTHER ==
[2020-04-02 03:36] LABS: BASOPHILS # (AUTO) 0.1 10^3/uL (0.0-0.1); BASOPHILS % (AUTO) 0.5 %; EOSINOPHILS # (AUTO) 0.2 10^3/uL (0.0-0.7); EOSINOPHILS % (AUTO) 2.4 %; HGB - HEMOGLOBIN 11.5 g/dL (12.0-16.0); LYMPHOCYTES # (AUTO) 1.8 10^3/uL (1.5-3.5); LYMPHOCYTES % (AUTO) 18.8 %; MEAN CORPUSCULAR HEMOGLOBIN 28.1 pg (27.0-31.0); MEAN CORPUSCULAR HGB CONC 31.5 g/dL (32.0-36.0); MEAN CORPUSCULAR VOLUME 89.2 fL (81.0-99.0); MEAN PLATELET VOLUME 12.3 fL (7.9-10.8); MONOCYTES # (AUTO) 0.9 10^3/uL (0.0-1.0); NEUTROPHILS # (AUTO) 6.5 10^3/uL (1.5-6.6); NEUTROPHILS % (AUTO) 68.6 %; PLT - PLATELET COUNT 239 10^3/uL (130-450); RED BLOOD COUNT 4.09 10^6/uL (4.20-5.40); RED CELL DISTRIBUTION WIDTH 17.8 % (12.0-15.0); WHITE BLOOD COUNT 9.4 x10^3/uL (4.8-10.8)
== END 2020-04-02 23:59 | disposition home or self-care (01) ==
LOC: LAB.R 03:15
DX: D64.9 Anemia, unspecified (principal)
CPT/HCPCS: 85025

== ENCOUNTER 2020-04-02 14:05 | Outpatient (CLI) | payer MEDICARE, OTHER ==
[2020-04-02 15:08] LABS: CALCIUM 10.8 mg/dL (8.5-10.3); CREATININE 1.1 mg/dL (0.4-1.0)
== END 2020-04-02 23:59 | disposition home or self-care (01) ==
LOC: LAB.R 14:05
PROVIDERS: ATTEND Family Medicine
DX: D64.9 Anemia, unspecified (principal)
CPT/HCPCS: 80048; 85025

== ENCOUNTER 2020-04-25 08:00 | Outpatient (CLI) | payer MEDICARE, OTHER ==
[2020-04-25 06:45] LABS: BASOPHILS # (AUTO) 0.1 10^3/uL (0.0-0.1); BASOPHILS % (AUTO) 0.4 %; EOSINOPHILS % (AUTO) 0.1 %; HGB - HEMOGLOBIN 14.9 g/dL (12.0-16.0); LYMPHOCYTES # (AUTO) 1.4 10^3/uL (1.5-3.5); LYMPHOCYTES % (AUTO) 8.4 %; MEAN CORPUSCULAR HEMOGLOBIN 28.5 pg (27.0-31.0); MEAN CORPUSCULAR HGB CONC 31.6 g/dL (32.0-36.0); MEAN CORPUSCULAR VOLUME 90.1 fL (81.0-99.0); MEAN PLATELET VOLUME 12.6 fL (7.9-10.8); MONOCYTES # (AUTO) 0.8 10^3/uL (0.0-1.0); MONOCYTES % (AUTO) 4.4 %; NEUTROPHILS # (AUTO) 14.8 10^3/uL (1.5-6.6); NEUTROPHILS % (AUTO) 85.8 %; PLT - PLATELET COUNT 258 10^3/uL (130-450); RED BLOOD COUNT 5.23 10^6/uL (4.20-5.40); RED CELL DISTRIBUTION WIDTH 21.3 % (12.0-15.0); WHITE BLOOD COUNT 17.2 x10^3/uL (4.8-10.8)
[2020-04-25 06:51] LABS: CALCIUM 11.4 mg/dL (8.5-10.3); CREATININE 1.8 mg/dL (0.4-1.0)
[2020-04-25 07:00] LABS: PLATELET ESTIMATE, MANUAL NORMAL (130-450,000) (NORMAL); PLATELET MORPHOLOGY NORMAL APPEARANCE (NORMAL); RBC MORPHOLOGY (MULTIPLE) 1+ ANISOCYTOSIS (NORMAL)
== END 2020-04-25 23:59 | disposition home or self-care (01) ==
LOC: LAB.R 08:00
DX: E87.6 Hypokalemia (principal); D64.9 Anemia, unspecified
CPT/HCPCS: 36415; 80048; 85025

== ENCOUNTER 2020-04-26 21:17 | Inpatient (IN) | payer MEDICARE, OTHER ==
[2020-04-26] MEDS ORDERED: SODIUM CHLORIDE 0.9% 1,000 ML IV STA ×2 (21:47→22:39)
--- NOTE | 2020-04-26 21:57 | ED Physician Documentation ---
History of Present Illness - Stated complaint Stated Complaint: ALOC - Chief complaint Chief Complaint: Critical Care - History obtained from History obtained from: Family, EMS - Additonal information Additional information: Patient is brought to the emergency department by EMS after being found to have altered mental status at her rehab facility. Patient is unable to offer any information as she is obtunded. Patient's daughter is present and states she does not know exactly what happened today or the details of any other symptoms the patient may have had. She does report that the patient had a very large CVA within the last couple of months and has required assistance with all activities of daily living ever since. She does not ambulate or verbalize, but is usually awake. The patient reportedly has been refusing all food and medications for the last patient's by phone does report that when the patient was being transported for her stroke, she did remark to him that she did not want to have any "heroics" done and that she did not want to live in a custodial, but just wanted to if that was going to be the kind of life she had. Both daughter and state that they would like the patient to receive mainly comfort care, but they would like testing to find out why the patient is somnolent and not breathing as well. retirement does not provide any information as far as whether the patient has had a fever or cough recently or any other symptoms. Medics note that the patient has been hypotensive in route. 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 - Present Medications Home Medications: Ambulatory Orders Medication Instructions Recorded Confirmed Clopidogrel [Plavix] 75 mg PO DAILY 01/11/14 03/08/20 Levothyroxine [Synthroid] 50 mcg PO QDAC 01/11/14 03/08/20 Metformin HCl 500 mg PO TIDWM 01/11/14 03/12/20 Potassium Chloride [Micro-K] 10 meq PO BIDWM 01/11/14 03/08/20 amLODIPine [Norvasc] 5 mg PO DAILY 01/11/14 03/08/20 hydroCHLOROthiazide [Hydrodiuril] 25 mg PO DAILY 01/11/14 03/08/20 Ascorbic Acid [Vitamin C] 500 mg PO BID 02/15/20 03/08/20 Aspirin 81 mg PO QDBREAKFAST 02/15/20 03/08/20 Famotidine 20 mg PO QDAC 02/15/20 03/08/20 Glipizide [Glipizide Xl] 2.5 mg PO QDAC 02/15/20 03/08/20 Multivit-Min/FA/Lycopen/Lutein 1 each PO QDAC 02/15/20 03/08/20 [Centrum Silver Men Tablet] Cefdinir 300 mg PO [id number] 03/12/20 03/12/20 metroNIDAZOLE [Metronidazole] 500 mg PO [id number] 03/12/20 03/12/20 Atorvastatin [Lipitor] 40 mg PO QPM #10 tablet 03/14/20 Lisinopril [Zestril] 20 mg PO BID #20 tablet 03/14/20 Metoprolol Succinate [Toprol Xl] 50 mg PO BID #20 tablet 03/14/20 - Allergies Allergies/Adverse Reactions: Allergies Allergy/AdvReac Type Severity Reaction Status Date / Time No Known Drug Allergies Allergy Verified 04/26/20 21:44 - Social History Does the pt smoke?: No Smoking Status: Never smoker Does the pt drink ETOH?: No Does the pt have substance abuse?: No - Immunizations Immunizations are current?: Yes - POLST Patient has POLST: No PD ED PE NORMAL - Vitals Vital signs reviewed: Yes - General General: Other (Patient is heavily somnolent and unresponsive to voice. She Reacts to noxious stimuli, but does not localize.) - HEENT HEENT: Atraumatic, Moist mucous membranes, Other (Pupils are sluggishly reactive to light.) - Neck Neck: Supple, no meningeal sign - Cardiac Cardiac: RRR, No murmur, Strong equal pulses - Respiratory Respiratory: No respiratory distress, Clear bilaterally, Other (Patient has sonorous respirations which fluctuate between heavy breathing and shallow breathing. However, patient is not in obvious respiratory distress.) - Abdomen Abdomen: Soft, Non tender, Non distended - Derm Derm: Normal color, Warm and dry, No rash, Other (Patient has scattered contusions on her extremities of various age.) - Extremities Extremities: No deformity - Neuro Neuro: Other (Patient reacts to noxious stimuli but does not localize or withdraw. She does not awaken to voice. She does open her eyes to change in position. She is handling secretions without difficulty. Pupils are sluggishly reactive.) - Psych Psych: Other (Patient is obtunded.) Results - Vitals Vitals: Vital Signs - 24 hr 04/26/20 04/26/20 04/26/20 21:42 21:53 22:01 Temperature 35.5 C L 35.5 C L Heart Rate 109 H 108 H Respiratory 33 H 32 H Rate Blood Pressure 92/59 L 86/56 L O2 Saturation 100 95 04/26/20 04/26/20 04/26/20 22:02 22:30 22:43 Temperature Heart Rate 100 97 95 Respiratory 26 H 26 H 26 H Rate Blood Pressure 92/59 L 105/65 90/52 L O2 Saturation 98 99 96 04/26/20 23:11 Temperature Heart Rate 82 Respiratory 18 Rate Blood Pressure 127/85 H O2 Saturation 98 Oxygen O2 Source Room air - Labs Labs: Laboratory Tests 04/26/20 04/26/20 04/26/20 22:10 22:10 22:10 WBC 21.8 H RBC 5.29 Hgb 15.0 Hct 49.8 H MCV 94.1 MCH 28.4 MCHC 30.1 L RDW 21.7 H Plt Count 241 MPV 12.7 H Neut # (Auto) 18.7 H Lymph # (Auto) 1.4 L [place] # (Auto) 1.3 H Eos # (Auto) 0.0 Baso # (Auto) 0.1 Absolute Nucleated RBC 0.00 Band Neuts % (Manual) Not Reportable Abnorm Lymph % (Manual) Not Reportable Nucleated RBC % 0.0 Neutrophils # (Manual) Not Reportable Lymphocytes # (Manual) Not Reportable Monocytes # (Manual) Not Reportable Eosinophils # (Manual) Not Reportable Basophils # (Manual) Not Reportable Differential Comment MANUAL=AUTO DIFF Manual Slide Review Indicated Platelet Estimate NORMAL (130-450,000) Platelet Morphology NORMAL APPEARANCE RBC Morph Micro Appear 1+ MACROCYTOSIS PT 12.4 INR 1.1 Sodium 151 H Potassium 4.6 Chloride 116 H Carbon Dioxide 19 L Anion Gap 16.0 H BUN 95 H* Creatinine 3.1 H Estimated GFR (MDRD) 14 L Glucose 358 H Calcium 11.2 H Total Bilirubin 1.0 AST 23 ALT 44 Alkaline Phosphatase 229 H Troponin I High Sens B-Natriuretic Peptide Total Protein 7.0 Albumin 3.7 Globulin 3.3 Albumin/Globulin Ratio 1.1 Lipase 89 H Urine Color Urine Clarity Urine pH Ur Specific [place] Urine Protein Urine Glucose (UA) Urine Ketones Urine Occult Blood Urine Nitrite Urine Bilirubin Urine Urobilinogen Ur Leukocyte Esterase Ur Microscopic Review Urine Culture Comments 04/26/20 04/26/20 04/26/20 22:10 22:10 22:35 WBC RBC Hgb Hct MCV MCH MCHC RDW Plt Count MPV Neut # (Auto) Lymph # (Auto) [place] # (Auto) Eos # (Auto) Baso # (Auto) Absolute Nucleated RBC Band Neuts % (Manual) Abnorm Lymph % (Manual) Nucleated RBC % Neutrophils # (Manual) Lymphocytes # (Manual) Monocytes # (Manual) Eosinophils # (Manual) Basophils # (Manual) Differential Comment Manual Slide Review Platelet Estimate Platelet Morphology RBC Morph Micro Appear PT INR Sodium Potassium Chloride Carbon Dioxide Anion Gap BUN Creatinine Estimated GFR (MDRD) Glucose Calcium Total Bilirubin AST ALT Alkaline Phosphatase Troponin I High Sens 94.5 H* B-Natriuretic Peptide 81 Total Protein Albumin Globulin Albumin/Globulin Ratio Lipase Urine Color YELLOW Urine Clarity CLEAR Urine pH 5.0 Ur Specific [place] 1.025 Urine Protein NEGATIVE Urine Glucose (UA) >=1000 H Urine Ketones NEGATIVE Urine Occult Blood NEGATIVE Urine Nitrite NEGATIVE Urine Bilirubin NEGATIVE Urine Urobilinogen 0.2 (NORMAL) Ur Leukocyte Esterase NEGATIVE Ur Microscopic Review NOT INDICATED Urine Culture Comments NOT INDICATED - Rads (name of study) CXR Radiology: Prelim report reviewed, EMP read indepedently, See rad report (No acute findings) CT head Radiology: Prelim report reviewed, EMP read indepedently, See rad report (No acute intracranial findings; old infarcts in L nation radiata and L basal ganglia) PD MEDICAL DECISION MAKING - ED course Complexity details: reviewed old records, reviewed results, re-evaluated patient, considered differential, d/w family ED course: After a discussion with the patient's daughter and , it was decided that the patient would undergo evaluation with lab work, urinalysis, chest x-ray, and head CT. IV had been placed in route, and patient was given IV fluids to help with her hypotension. Patient's blood pressures did improve with the 2 L of IV fluid she received in the emergency department, with highest numbers being systolics in the low 100, fluctuating down to the 80s systolic in between. Patient's heart rate remained stable. Patient was found to have an elevated BUN at 95 and creatinine 3.1, as well as an elevated troponin at 94. Her white blood cell count was 21.8, but she was afebrile in the emergency department, and chest x-ray and urinalysis were both negative. I discussed the case with Dr. Richard luevano, who has accepted the pt for admission. I discussed with the patient's daughter that I feel she is dehydrated and that she is also had a non-ST elevation NC. Since the family has adamantly stated they do not want any intervention beyond basic, noninvasive interventions, I do not feel the patient would benefit from transfer to another facility for her non-ST elevation NC I have discussed with the daughter that is very important that she and the patient's have a conversation with social work to determine what the best course of action for the patient's longer term care would be, assuming she survives hospital admission in her current tenuous state. Daughter expresses understanding and states she would like to speak with social service assistant about having some sort of care plan for the patient's facility. Departure - Departure Disposition: 66 [facility] DC/Xfer Clinical Impression: Dehydration, NSTEMI (non-ST elevated myocardial infarction), Acute prerenal failure Altered mental status Qualifiers: Altered mental status type: unspecified Qualified Code(s): R41.82 - Altered mental status, unspecified Discharge Date/Time: 04/27/20 00:23
[2020-04-26 22:20] LABS: BASOPHILS # (AUTO) 0.1 10^3/uL (0.0-0.1); BASOPHILS % (AUTO) 0.4 %; LYMPHOCYTES # (AUTO) 1.4 10^3/uL (1.5-3.5); LYMPHOCYTES % (AUTO) 6.4 %; MEAN CORPUSCULAR HEMOGLOBIN 28.4 pg (27.0-31.0); MEAN CORPUSCULAR HGB CONC 30.1 g/dL (32.0-36.0); MEAN CORPUSCULAR VOLUME 94.1 fL (81.0-99.0); MEAN PLATELET VOLUME 12.7 fL (7.9-10.8); MONOCYTES # (AUTO) 1.3 10^3/uL (0.0-1.0); MONOCYTES % (AUTO) 5.9 %; NEUTROPHILS # (AUTO) 18.7 10^3/uL (1.5-6.6); NEUTROPHILS % (AUTO) 85.7 %; PLT - PLATELET COUNT 241 10^3/uL (130-450); RED BLOOD COUNT 5.29 10^6/uL (4.20-5.40); RED CELL DISTRIBUTION WIDTH 21.7 % (12.0-15.0); WHITE BLOOD COUNT 21.8 x10^3/uL (4.8-10.8)
[2020-04-26 22:24] LABS: INR 1.1 (0.8-1.2); PT - PROTHROMBIN TIME 12.4 secs (9.9-12.6)
[2020-04-26 22:43] LABS: BILIRUBIN,URINE NEGATIVE (NEGATIVE); CLARITY,URINE CLEAR (CLEAR); GLUCOSE, URINE (UA) >=1000 mg/dL (NEGATIVE); KETONES,URINE (UA) NEGATIVE (NEGATIVE); LEUKOCYTE ESTERASE, URINE NEGATIVE (NEGATIVE); NITRITE,URINE NEGATIVE (NEGATIVE); OCCULT BLOOD,URINE NEGATIVE (NEGATIVE); PROTEIN,URINE NEGATIVE (NEGATIVE); UROBILINOGEN,URINE 0.2 (NORMAL) E.U./dL (NORMAL)
[2020-04-26 22:48] LABS: DIFFERENTIAL COMMENT MANUAL=AUTO DIFF; PLATELET ESTIMATE, MANUAL NORMAL (130-450,000) (NORMAL); PLATELET MORPHOLOGY NORMAL APPEARANCE (NORMAL)
[2020-04-26 22:50] LABS: ALBUMIN 3.7 g/dL (3.2-5.5); ALBUMIN/GLOBULIN RATIO 1.1 (1.0-2.2); CALCIUM 11.2 mg/dL (8.5-10.3); CREATININE 3.1 mg/dL (0.4-1.0)
--- NOTE | 2020-04-26 23:40 | HISTORY & PHYSICAL EXAMINATION ---
Chief Complaint - Chief Complaint Chief Complaint: altered mental status History of Present Illness - Admitted From Admitted From:: [facility] ED - History Obtained From Records Reviewed: yes History obtained from: ED physician Exam Limitations: patient is obtunded - History of Present Illness HPI Comment/Other: Patient is an 84-year-old female who presented to the ED from [facility] where she has been residing since March 2020. 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 1 week after that she was discharged from [facility] to [facility] where she has been going through rehab since. Today staff was concerned about her breathing which appeared erratic and irregular. It was also reported that for the past 1 week she has been refusing to eat and refusing to take her medications. Usually at baseline she is awake though nonverbal. Since the stroke she is completely dependent for all activities of daily living. She is also mainly bedridden. However today in the ED she was noted to be obtunded. Work-up in the ED showed a creatinine of 3.1, troponin 94.5 and a WBC of 21. CT of the head without contrast showed her previous stroke. Chest x-ray showed no acute finding. Consequently she was presented for admission History - Past Medical History Cardiovascular: reports: Hypertension, High cholesterol, Atrial fibrillation Respiratory: reports: None Neuro: reports: Dementia, CVA Endocrine/Autoimmune: reports: Type 2 diabetes, HyPOthyroidism GI: reports: GERD : reports: Frequency Psych: reports: None Musculoskeletal: reports: None Derm: reports: Herpes zoster MRSA Hx?: No - Past Surgical History General: reports: Cholecystectomy, Appendectomy /VP INFORMATICS: reports: Oophrectomy - Family & Social History Family History Comment/Other: Cannot obtain due to altered mental status Living arrangement: Other (Rehab facility) Social History Notes: From previous records patient never smoked tobacco products, rarely drinks alcohol and never used recreational substances. - POLST Patient has POLST: No Meds/Allgy - Home Medications Home Medications: Ambulatory Orders Medication Instructions Recorded Confirmed Clopidogrel [Plavix] 75 mg PO DAILY 01/11/14 03/08/20 Levothyroxine [Synthroid] 50 mcg PO QDAC 01/11/14 03/08/20 Metformin HCl 500 mg PO TIDWM 01/11/14 03/12/20 Potassium Chloride [Micro-K] 10 meq PO BIDWM 01/11/14 03/08/20 amLODIPine [Norvasc] 5 mg PO DAILY 01/11/14 03/08/20 hydroCHLOROthiazide [Hydrodiuril] 25 mg PO DAILY 01/11/14 03/08/20 Ascorbic Acid [Vitamin C] 500 mg PO BID 02/15/20 03/08/20 Aspirin 81 mg PO QDBREAKFAST 02/15/20 03/08/20 Famotidine 20 mg PO QDAC 02/15/20 03/08/20 Glipizide [Glipizide Xl] 2.5 mg PO QDAC 02/15/20 03/08/20 Multivit-Min/FA/Lycopen/Lutein 1 each PO QDAC 02/15/20 03/08/20 [Centrum Silver Men Tablet] Cefdinir 300 mg PO [id number] 03/12/20 03/12/20 metroNIDAZOLE [Metronidazole] 500 mg PO [id number] 03/12/20 03/12/20 Atorvastatin [Lipitor] 40 mg PO QPM #10 tablet 03/14/20 Lisinopril [Zestril] 20 mg PO BID #20 tablet 03/14/20 Metoprolol Succinate [Toprol Xl] 50 mg PO BID #20 tablet 03/14/20 - Allergies Allergies/Adverse Reactions: Allergies Allergy/AdvReac Type Severity Reaction Status Date / Time No Known Drug Allergies Allergy Verified 04/26/20 21:44 Review of Systems - Other Findings Other Findings: Review of systems currently limited because patient is obtunded. Prior Level of Functionality: Patient recently had a very large CVA within the last couple of months. She has been at the rehab facility where she is required assistance with all activities of daily living. At baseline she does not ambulate or verbalize but is usually awake. Exam - Vital Signs Vital Signs: Vital Signs x48h Temp Pulse Resp BP Pulse Ox 04/26/20 23:30 83 25 H 100/64 100 04/26/20 23:11 82 18 127/85 H 98 04/26/20 22:43 95 26 H 90/52 L 96 04/26/20 22:30 97 26 H 105/65 99 04/26/20 22:02 100 26 H 92/59 L 98 04/26/20 22:01 35.5 C L 108 H 32 H 86/56 L 95 04/26/20 21:53 109 H 33 H 92/59 L 100 04/26/20 21:42 35.5 C L - Physical Exam General Appearance: positive: No acute distress, Other (obtunded. Minimal response to painful stimuli. However patient sleeping soundly and snoring loudly.) Eyes Bilateral: positive: Other (pupils appear very constricted with sluggish response to light) ENT: positive: Dry mucous membranes Neck: positive: No JVD, Trachea midline Respiratory: positive: Chest non-tender, No respiratory distress, Breath sounds nml. negative: Wheezes, Rales, Rhonchi Cardiovascular: positive: Regular rate & rhythm Abdomen: positive: Non-tender, Nml bowel sounds, No distention Back: positive: Nml inspection Skin: positive: Pallor, Other (some bruising noted on thighs) Extremities: positive: Other (Upper extremities are cold) Neurologic/Psychiatric: positive: Other (Obtunded) Conclusion/Plan - Problem List (1) Acute prerenal failure Conclusion/Plan: Patient was given 2 L of normal saline in the ED. We will continue normal saline at 83 mils per hour. (2) Comfort measures only status Conclusion/Plan: History of a large CVA affecting the left coronary radiata and basal ganglia Currently obtunded. I had a conversation with the patient's daughter by name Cheryl Roberts To discuss the goals of care. I explained to the patient's daughter that in light of the patient refusing oral intake, her duration of time left would be measured in days without hydration. She expressed that their primary goal/ wish is to keep the patient comfortable. They did not wish for any intervention. They had initially requested IV hydration in the emergency room. I discussed this with her asking for consideration to the ultimate goal. Cheryl has requested that we continue IV hydration until after a meeting with hospice care and the transition to hospice has been made. We will continue IV hydration for now and consult hospice in the morning. I explained that our treatment would focus on keeping the patient comfortable. In case of anxiety or pain we would use medication accordingly to address them. If the patient was to take a turn for the worse overnight we will contact Cheryl at the home number. She expressed understanding and was agreeable to the plan. - Lab Results Fish Bones: 04/26/20 22:10 04/26/20 22:10
[2020-04-27] MEDS ORDERED: LORazepam 2 MG/ML VIAL IVP PRN (00:58)
[2020-04-27] MEDS ORDERED: GLYCOPYRROLATE 1 MG/5 ML VIAL SUBQ PRN (00:58)
[2020-04-27] MEDS: SODIUM CHLORIDE 0.9% 1,000 ML IV SCH ×2 (01:37→14:23)
--- NOTE | 2020-04-27 08:25 | XRAY Report ---
PROCEDURE: Chest 1 View X-Ray INDICATIONS: chest pain TECHNIQUE: One view of the chest was acquired. COMPARISON: Negative. FINDINGS: Surgical changes and devices: None. Lungs and pleura: No pleural effusions or pneumothorax. Lungs are clear. Mediastinum: Mediastinal contours appear normal. Heart size is normal. Bones and chest wall: No suspicious bony lesions. Overlying soft tissues appear unremarkable. IMPRESSION: No acute disease Reviewed by: Conor Pappas MD on 04/27/2020 8:24 AM PDT Approved by: Conor Pappas MD on 04/27/2020 8:24 AM PDT Station ID: [id number]
--- NOTE | 2020-04-27 08:28 | CT Report ---
PROCEDURE: HEAD WO INDICATIONS: aloc TECHNIQUE: Noncontrast 4.5 mm thick angled axial sections acquired from the foramen magnum to the vertex. For r adiation dose reduction, the following was used: automated exposure control, adjustment of mA and/or kV according to patient size. COMPARISON: None. FINDINGS: Image quality: Excellent. CSF spaces: Basal cisterns are patent. No extra-axial fluid collections. Ventricles are normal in size and shape. Brain: No midline shift. Chronic appearing hypodensities involving left basal ganglia and nation rad iata. No intracranial masses or hemorrhage. Valencia-white matter interface is normal. Skull and face: Calvarium and visualized facial bones are intact, without suspicious lesions. Sinuses: Visualized sinuses and mastoids are clear. IMPRESSION: No acute intracranial process. Chronic left-sided encephalomalacia as above. Findings are concordant with the preliminary study interpretation provided at the time of the study. Reviewed by: Conor Pappas MD on 04/27/2020 8:27 AM PDT Approved by: Conor Pappas MD on 04/27/2020 8:27 AM PDT Station ID: [id number]
[2020-04-27] MEDS: MORPHINE 2 MG/ML CARPUJECT IVP PRN (14:29)
--- NOTE | 2020-04-27 16:19 | PHARMACY PROGRESS NOTE ---
- Best Possible Medication History Admit Date and Time: 04/26/20 5873 Processed by: Pharmacy Medication History completed: Yes Secondary Source(s): Facility MAR as ONLY source As the person ultimately responsible for medication therapy, providers are able to order a medication from an existing home medication list in [facility] via the "Reconcile Routine" prior to Confirmation of that medication by customer support representative. Such practice is discouraged except when the physician, in their clinical judgment, deems that a medical need exists for a medication without regard to previous use.
--- NOTE | 2020-04-27 19:54 | PROVIDER PROGRESS NOTE ---
Assessment/Plan - Problem List (1) Acute prerenal failure Assessment/Plan: Will maintain IV hydration for now until patient seen by hospice on Monday or (2) Comfort measures only status Assessment/Plan: There has been no change in patient's mental status. She remains obtunded with no significant response to verbal or tactile stimuli.Patient will be seen by [facility] on Monday morning or afternoon. COVID 19 testing for the purpose of placement is pending. - Current Meds Current Meds: Current Medications Generic Name Dose Route Start Last Admin Trade Name Freq PRN Reason Stop Dose Admin Glycopyrrolate 0.2 mg 04/27/20 00:58 04/27/20 14:29 Robinul SUBQ 0.2 mg Q4H PRN Administration Excessive secretions Sodium Chloride 1,000 mls @ 83.333 mls/hr 04/27/20 02:00 04/27/20 14:23 Normal Saline 0.9% IV 83.333 mls/hr .Q12H JEFFREY Administration Morphine Sulfate 2 mg 04/27/20 00:58 04/27/20 14:29 Morphine (Carpuject) IVP 2 mg Q2HR PRN Administration Pain or Shortness of air - Lab Result Fish Bone Diagrams: 04/26/20 22:10 04/26/20 22:10 - Additional Planning My Orders: My Active Orders 04/26/20 23:24 Code Status [OTHERS] Routine 04/27/20 00:58 Comfort Care [RC] QSHIFT Arciniega Insertion [RC] QSHIFT IV Line/Site Care [RC] Q4HR Oxygen Therapy [RC] .PRN Glycopyrrolate [Robinul] 0.2 mg SUBQ Q4H PRN LORazepam INJ [Ativan Inj (Vial)] 1 mg IVP Q6H PRN Morphine Inj (Carpuject) [Morphine (Carpuject)] 2 mg IVP Q2HR PRN 04/27/20 01:01 Arciniega Continuation and Care [RC] QSHIFT 04/27/20 01:36 Vital Signs [RC] PRN 04/27/20 02:00 Sodium Chloride 0.9% [Normal Saline 0.9%] 1,000 ml IV 83.333 mls/hr 04/27/20 06:45 Initiate Personal Care Protoco [RC] .protocol NPO [DIET] 04/27/20 07:00 Hospice Referral [CONS] Routine Social Work Consult [CONS] Routine Subjective - Subjective Patient Reports: Other (There has been no change in patient's mental status. She remains obtunded. There is minimal response to verbal and tactile stimuli.) Objective Vital Signs: Vital Signs - 24 hr 04/26/20 04/26/20 04/26/20 21:42 21:53 22:01 Temperature 35.5 C L 35.5 C L Heart Rate 109 H 108 H Heart Rate [ Brachial] Respiratory 33 H 32 H Rate Blood Pressure 92/59 L 86/56 L Blood Pressure [Right Brachial artery] O2 Saturation 100 95 04/26/20 04/26/20 04/26/20 22:02 22:30 22:43 Temperature Heart Rate 100 97 95 Heart Rate [ Brachial] Respiratory 26 H 26 H 26 H Rate Blood Pressure 92/59 L 105/65 90/52 L Blood Pressure [Right Brachial artery] O2 Saturation 98 99 96 04/26/20 04/26/20 04/27/20 23:11 23:30 00:00 Temperature Heart Rate 82 83 87 Heart Rate [ Brachial] Respiratory 18 25 H 26 H Rate Blood Pressure 127/85 H 100/64 111/57 L Blood Pressure [Right Brachial artery] O2 Saturation 98 100 100 04/27/20 04/27/20 01:36 17:11 Temperature 35.7 C L 37.1 C Heart Rate Heart Rate [ 91 83 Brachial] Respiratory 20 16 Rate Blood Pressure Blood Pressure 87/61 L 110/62 [Right Brachial artery] O2 Saturation 99 97 Oxygen O2 Source Room air I&O (Last 24 Hrs): Intake and Output Totals x24h 04/25/20 04/26/20 04/27/20 23:59 23:59 23:59 Intake Total 1999 1000 Output Total 325 Balance 1999 675 General: Other (Obtunded) Cardiovascular: Regular rate, Normal S1, Normal S2 Respiratory: Other (Respirations irregular and sometimes shallow) Abdomen: Soft, No tenderness Comments/Notes: Bruising noted on lower extremities as before - Results Results: Laboratory Results WBC 21.8 x10^3/uL (4.8-10.8) H 04/26/20 22:10 RBC 5.29 10^6/uL (4.20-5.40) 04/26/20 22:10 Hgb 15.0 g/dL (12.0-16.0) 04/26/20 22:10 Hct 49.8 % (37.0-47.0) H 04/26/20 22:10 MCV 94.1 fL (81.0-99.0) 04/26/20 22:10 MCH 28.4 pg (27.0-31.0) 04/26/20 22:10 MCHC 30.1 g/dL (32.0-36.0) L 04/26/20 22:10 RDW 21.7 % (12.0-15.0) H 04/26/20 22:10 Plt Count 241 10^3/uL (130-450) 04/26/20 22:10 MPV 12.7 fL (7.9-10.8) H 04/26/20 22:10 Neut # (Auto) 18.7 10^3/uL (1.5-6.6) H 04/26/20 22:10 Lymph # (Auto) 1.4 10^3/uL (1.5-3.5) L 04/26/20 22:10 [place] # (Auto) 1.3 10^3/uL (0.0-1.0) H 04/26/20 22:10 Eos # (Auto) 0.0 10^3/uL (0.0-0.7) 04/26/20 22:10 Baso # (Auto) 0.1 10^3/uL (0.0-0.1) 04/26/20 22:10 Absolute Nucleated RBC 0.00 x10^3/uL 04/26/20 22:10 Band Neuts % (Manual) Not Reportable 04/26/20 22:10 Abnorm Lymph % (Manual) Not Reportable 04/26/20 22:10 Nucleated RBC % 0.0 /100WBC 04/26/20 22:10 Neutrophils # (Manual) Not Reportable 04/26/20 22:10 Lymphocytes # (Manual) Not Reportable 04/26/20 22:10 Monocytes # (Manual) Not Reportable 04/26/20 22:10 Eosinophils # (Manual) Not Reportable 04/26/20 22:10 Basophils # (Manual) Not Reportable 04/26/20 22:10 Differential Comment MANUAL=AUTO DIFF 04/26/20 22:10 Manual Slide Review Indicated 04/26/20 22:10 Platelet Estimate NORMAL (130-450,000) (NORMAL) 04/26/20 22:10 Platelet Morphology NORMAL APPEARANCE (NORMAL) 04/26/20 22:10 RBC Morph Micro Appear 1+ ANISOCYTOSIS (NORMAL) 1+ MACROCYTOSIS (NORMAL) 04/26/20 22:10 RBC Morph Micro Appear 1+ ANISOCYTOSIS (NORMAL) 1+ MACROCYTOSIS (NORMAL) 04/26/20 22:10 PT 12.4 secs (9.9-12.6) 04/26/20 22:10 INR 1.1 (0.8-1.2) 04/26/20 22:10 Sodium 151 mmol/L (135-145) H 04/26/20 22:10 Potassium 4.6 mmol/L (3.5-5.0) 04/26/20 22:10 Chloride 116 mmol/L (101-111) H 04/26/20 22:10 Carbon Dioxide 19 mmol/L (21-32) L 04/26/20 22:10 Anion Gap 16.0 (6-13) H 04/26/20 22:10 BUN 95 mg/dL (6-20) H* 04/26/20 22:10 Creatinine 3.1 mg/dL (0.4-1.0) H 04/26/20 22:10 Estimated GFR (MDRD) 14 (>89) L 04/26/20 22:10 Glucose 358 mg/dL (70-100) H 04/26/20 22:10 Calcium 11.2 mg/dL (8.5-10.3) H 04/26/20 22:10 Total Bilirubin 1.0 mg/dL (0.2-1.0) 04/26/20 22:10 AST 23 IU/L (10-42) 04/26/20 22:10 ALT 44 IU/L (10-60) 04/26/20 22:10 Alkaline Phosphatase 229 IU/L (42-121) H 04/26/20 22:10 Troponin I High Sens 94.5 ng/L (2.3-14.8) H* 04/26/20 22:10 B-Natriuretic Peptide 81 pg/mL (5-100) 04/26/20 22:10 Total Protein 7.0 g/dL (6.7-8.2) 04/26/20 22:10 Albumin 3.7 g/dL (3.2-5.5) 04/26/20 22:10 Globulin 3.3 g/dL (2.1-4.2) 04/26/20 22:10 Albumin/Globulin Ratio 1.1 (1.0-2.2) 04/26/20 22:10 Lipase 89 U/L (22-51) H 04/26/20 22:10 Urine Color YELLOW 04/26/20 22:35 Urine Clarity CLEAR (CLEAR) 04/26/20 22:35 Urine pH 5.0 PH (5.0-7.5) 04/26/20 22:35 Ur Specific [place] 1.025 (1.002-1.030) 04/26/20 22:35 Urine Protein NEGATIVE mg/dL (NEGATIVE) 04/26/20 22:35 Urine Glucose (UA) >=1000 mg/dL (NEGATIVE) H 04/26/20 22:35 Urine Ketones NEGATIVE mg/dL (NEGATIVE) 04/26/20 22:35 Urine Occult Blood NEGATIVE (NEGATIVE) 04/26/20 22:35 Urine Nitrite NEGATIVE (NEGATIVE) 04/26/20 22:35 Urine Bilirubin NEGATIVE (NEGATIVE) 04/26/20 22:35 Urine Urobilinogen 0.2 (NORMAL) E.U./dL (NORMAL) 04/26/20 22:35 Ur Leukocyte Esterase NEGATIVE (NEGATIVE) 04/26/20 22:35 Ur Microscopic Review NOT INDICATED 04/26/20 22:35 Urine Culture Comments NOT INDICATED 04/26/20 22:35 ABX Reporting Has patient been on IV antibiotics over the past 48 hours?: No
--- NOTE | 2020-04-28 12:34 | Discharge Plan ---
Discharge Plan Problem Reviewed?: Yes Disposition: 50 Hospice/Home DC/Xfer Condition: Critical Prescriptions: LORazepam [Ativan] 0.5 mg PO Q6H PRN #15 tablet PRN Reason: Agitation Morphine Sulfate [Morphine Sulf Oral (Roxanol)] 5 mg PO Q4H PRN #30 ml PRN Reason: Pain/Dyspnea Instruction Topics: Hospice Health Concerns: hospice care Plan of Treatment: followup with hospice care Care Goals: comfortable, pain control and quality of life Assessment: pt's family request hospice care, and hospice team accepted pt, hospice team will followup with pt for hospice care in [facility] Additional Instructions or Follow Up instructions: followup with hospice care in [facility] No Smoking: If you smoke, Please STOP! Call for help. Follow-up with: Linnea Ramos MD [Primary Care Provider] -
--- NOTE | 2020-04-28 12:42 | DISCHARGE SUMMARY ---
Discharge Summary Admit Date: 04/26/20 Discharge Date: 04/28/20 Discharging Provider: Lonnie Domínguez Primary Care Provider: Linnea Zuleta Condition at Discharge: Critical Discharge Disposition: 50 Hospice/Home DC/Xfer Discharge Facility Name: [facility] - DIAGNOSES Discharge Diagnoses with Status of Each Condition: (1) Comfort measures only status with followup with hospice care Patient family request comfortable management only, and request follow-up with hospice care after discharge. Unfortunately patient has advanced dementia and physical deconditioning drop dramatically. Patient will DC to [facility] for hospice care. (2)sepsis with unknown infection recourse Patient presented ER with hypothermia, elevated WBC, tachycardia, hypotension, tachypnea with unknowns infection resources, CXR and UA were unremarkable. pt Family choose comfortable care and no intervention. (3) Acute kidney injury Patient had creatinine 3.1 from previous 1.1. 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 (6) Atrial fibrillation pt has hx of afib, Family choose no intervention, and comfortable care (7) Diabetes chronic (8)advanced dementia chronic (9)anorexia Family choose no intervention, and comfortable care, followup with hospice care. - HPI History of Present Illness: refer from Dr. Kimball's HPI on 04/26/2020. Patient is an 84-year-old female who presented to the ED from [facility] where she has been residing since March 2020. 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 1 week after that she was discharged from [facility] to [facility] where she has been going through rehab since. Today staff was concerned about her breathing which appeared erratic and irregular. It was also reported that for the past 1 week she has been refusing to eat and refusing to take her medications. Usually at baseline she is awake though nonverbal. Since the stroke she is completely dependent for all activities of daily living. She is also mainly bedridden. However today in the ED she was noted to be obtunded. Work-up in the ED showed a creatinine of 3.1, troponin 94.5 and a WBC of 21. CT of the head without contrast showed her previous stroke. Chest x-ray showed no acute finding. Consequently she was presented for admission - HOSPITAL COURSE Hospital Course: pt was admitted for breathing which appeared erratic and irregular. pt was also reported that for the past 1 week she has been refusing to eat and refusing to take her medications. Work-up was found she had a creatinine of 3.1, troponin 94.5 and a WBC of 21. CT of the head without contrast showed her previous stroke. Chest x-ray showed no acute finding. UA reveals unremarkable. Admission provider discussed the care plan with pt's family, family chose Comfortable care without intervention and follow-up with hospice care. Patient was discharged to [facility] for hospice care. - ALLERGIES Allergies/Adverse Reactions: Allergies Allergy/AdvReac Type Severity Reaction Status Date / Time No Known Drug Allergies Allergy Verified 04/26/20 21:44 - MEDICATIONS Home Medications: Ambulatory Orders Medication Instructions Recorded Confirmed LORazepam [Ativan] 0.5 mg PO Q6H PRN #15 tablet 04/28/20 Morphine Sulfate [Morphine Sulf 5 mg PO Q4H PRN #30 ml 04/28/20 Oral (Roxanol)] - PHYSICAL EXAM AT DISCHARGE General Appearance: positive: No acute distress, Lethargic Eyes Bilateral: positive: Normal inspection, No lid inflammation ENT: positive: ENT inspection nml Neck: positive: Nml inspection, Trachea midline. negative: Thyromegaly Respiratory: positive: Chest non-tender, No respiratory distress. negative: Wheezes Cardiovascular: positive: Irregularly irregular, Tachycardia. negative: Systolic murmur Peripheral Pulses: positive: 2+ Abdomen: positive: Non-tender, No distention, Abnml bowel sounds, Other (diminished bowel sound). negative: Tenderness Back: positive: Nml inspection Skin: positive: Color nml, Warm, Dry Extremities: positive: Non-tender, Nml appearance Neurologic/Psychiatric: negative: Motor nml, Sensation nml, Facial droop - LABS Result Diagrams: 04/26/20 22:10 04/26/20 22:10 - FOLLOW UP Follow Up: followup with hospice care - TIME SPENT Time Spent in Discharge (Minutes): 30
--- NOTE | 2020-04-28 13:31 | Discharge Plan ---
"Discharge Plan for SNF / [facility] - Discharge Plan And Transition Orders Problem Reviewed?: Yes Disposition: 50 Hospice/Home DC/Xfer Condition: Critical Allergies and Adverse Reactions: Allergies Allergy/AdvReac Type Severity Reaction Status Date / Time No Known Drug Allergies Allergy Verified 04/26/20 21:44 Health Concerns: hospice care Plan of Treatment: followup with hospice care Care Goals: comfortable, pain control and quality of life Assessment: pt's family request hospice care, and hospice team accepted pt, hospice team w ill followup with pt for hospice care in [facility] - SNF / LONG-TERM Transition Orders Admit to (Facility): [facility] Under the care of (Name): Dr. Wong Discharge Diagnosis: comfortable measure only, hospice care, hx of CVA, MILLY, anorexia, advanced dementia Medicare Certification Statement: I do not certify that [facility] half-way care is medically necessary on a continuing basis for any of the conditions for which she/he is receiving care during hospitalization. Notify PCP of admission and forward orders to primary provider for signature. Other Notification Orders: Call PCP immediately if patient develops dyspnea, chest pain/tightness or edema. Additional Bowel Program Orders: If no BM after 2 days, nurse may give M.O.M. 30ml PO PRN and/or ducolax Supp 1 GA and/or ALON 250mg P.O., and/or senna 1-2 tabs PO. On day 3 nurse may give repeat above order until residents constipation is resolved. Treatments & Other Orders: followup with hospice care Medication Orders: PLEASE REFER TO THE DISCHARGE MEDICATION LIST. Insulin Orders?: No - Medications New Prescriptions: LORazepam [Ativan] 0.5 mg PO Q6H PRN #15 tablet PRN Reason: Agitation Morphine Sulfate [Morphine Sulf Oral (Roxanol)] 5 mg PO Q4H PRN #30 ml PRN Reason: Pain/Dyspnea - Therapies | Activity Additional Instructions: followup with hospice care in [facility]"
[2020-04-28] MEDS: MORPHINE 2 MG/ML CARPUJECT IVP PRN (14:14)
[2020-04-28 16:01] VITALS: BP 142/82
== END 2020-04-28 16:20 | disposition hospice, home (50) | DRG 872 ==
LOC: EDUNIT# → ED 21:17 → MS2 23:23
PROVIDERS: ADMIT Internal Medicine; ATTEND Nurse Practitioner Gerontology
DX: I21.4 Non-ST elevation (NSTEMI) myocardial infarction (principal); A41.9 Sepsis, unspecified organism; I69.998 Other sequelae following unspecified cerebrovascular disease; N17.9 Acute kidney failure, unspecified; I69.30 Unspecified sequelae of cerebral infarction; E78.00 Pure hypercholesterolemia, unspecified; I10 Essential (primary) hypertension; I48.91 Unspecified atrial fibrillation; E86.0 Dehydration; E11.9 Type 2 diabetes mellitus without complications; F03.90 Unspecified dementia, unspecified severity, without behavioral disturbance, psychotic disturbance, mood disturbance, and anxiety; R63.0 Anorexia; I65.22 Occlusion and stenosis of left carotid artery; E03.9 Hypothyroidism, unspecified; Z66 Do not resuscitate; Z74.01 Bed confinement status; R41.82 Altered mental status, unspecified; Z20.828 Contact with and (suspected) exposure to other viral communicable diseases; Z51.5 Encounter for palliative care
CPT/HCPCS: 36415; 70450; 71045; 80053; 81003; 83690; 83880; 84484; 85025; 85610; 96360; 99281; 99285; J2060; U0004; 81001; 87086